=== PATIENT | male | born 1935 | race Caucasian/White ===

== ENCOUNTER 2016-11-11 19:46 | Emergency (ER) | payer MEDICARE, BC ==
[2016-11-11] MEDS ORDERED: SODIUM CHLORIDE 0.9% 1,000 ML IV ONE (20:27)
[2016-11-11 21:02] LABS: Basophils % (A) 0 %; CH 31.3; CHCM 33.5; Eosinophils % (A) 1 %; HCT 47.6 % (39.0-53.0); HDW 2.38; HGB 15.5 gm/dL (13.0-17.5); Luc # (Auto) 0.24; Luc % (Auto) 3; Lymphocytes # (A) 0.9 k/uL (1.0-4.8); Lymphocytes % (A) 10 %; MCH 30.7 pg (25.0-35.0); MCHC 32.7 g/dL (31.0-37.0); MCV 93.9 fL (80.0-100.0); Mean Platelet Volume 8.5; Monocytes # (A) 0.9 k/uL (0-1.0); Monocytes % (A) 10 %; Neutrophils # (A) 6.7 k/uL (1.3-7.7); Neutrophils % (A) 76 %; RBC 5.07 m/uL (4.30-5.90); RDW 14.3 % (11.5-15.5); WBC 8.8 k/uL (3.8-10.6); WBC (Perox) 9.16
--- NOTE | 2016-11-11 21:03 | XR ---
EXAMINATION TYPE: XR chest 2V DATE OF EXAM: 11/11/2016 8:59 PM COMPARISON: Prior chest x-ray July 30, 2016. HISTORY: Shortness of breath TECHNIQUE: Frontal and lateral views of the chest are obtained. FINDINGS: Sternal wires are present. There is chronic parenchymal change without suspicious focal air space opacity, pleural effusion, or pneumothorax seen. The cardiac silhouette size is enlarged. T he osseous structures are demineralized. Surgical clips in the visualized upper abdomen are noted. IMPRESSION: Chronic parenchymal changes and cardiomegaly without acute pulmonary process.
[2016-11-11 21:07] LABS: ALT 31 U/L (21-72); AST 25 U/L (17-59); Alkaline Phosphatase 78 U/L (38-126); Anion Gap 10 mmol/L; Blood Urea Nitrogen 16 mg/dL (9-20); Carbon Dioxide 27 mmol/L (22-30); Chloride 104 mmol/L (98-107); Glucose 123 mg/dL (74-99); INR 2.4 (<1.1); Non-African American GFR(MDRD) >60 (>60 ml/min/1.73 sqM); Partial Thromboplastin Time 31.9 sec (22.0-30.0); Potassium 4.7 mmol/L (3.5-5.1); Prothrombin Time 23.4 sec (9.0-12.0); Sodium 141 mmol/L (137-145); Total Bilirubin 0.7 mg/dL (0.2-1.3); Total Protein 7.4 g/dL (6.3-8.2)
--- NOTE | 2016-11-11 21:54 | CT ---
EXAMINATION TYPE: CT brain wo con DATE OF EXAM: 11/11/2016 9:35 PM HISTORY: CONFUSION AND WEAKNESS. CT DLP: 1010.8 mGycm. Automated Exposure Control for Dose Reduction was Utilized. TECHNIQUE: CT scan of the head is performed without contrast. COMPARISON: CT brain July 30, 2016 FINDINGS: There is no acute intracranial hemorrhage or midline shift identified. There is diffuse v entricular and sulcal prominence consistent with diffuse age-related cerebral atrophy. Degree of mayte tricular dilatation is slightly out of proportion to degree of sulcal effacement and a normal pressur e hydrocephalus is not excluded. No significant change in ventricular size is noted from prior. Focal extra-axial CSF prominence over anterior left temporal lobe on axial image 10 could reflect arachnoi d cyst or asymmetric temporal lobe degeneration, former is favored, finding is unchanged from prior s tudy. There is low-attenuation in the periventricular white matter consistent with chronic small vess el ischemic change. The globes are intact and the visualized sinuses are clear. Vascular calcifica tion of distal internal carotid and vertebral arteries bilaterally is redemonstrated. IMPRESSION: No acute intracranial hemorrhage or midline shift. There is moderate to severe diffuse age-related cerebral atrophy with possible normal pressure hydrocephalus and mild chronic small vesse l ischemic change redemonstrated . No significant change from prior study is seen.
--- NOTE | 2016-11-11 22:55 | ED ---
Fall HPI - General Chief Complaint: Fall Stated Complaint: Weakness Time Seen by Provider: 11/11/16 20:05 Source: patient Mode of arrival: EMS - Related Data Home Medications Medication Instructions Recorded Confirmed Ascorbic Acid [Vitamin C] 500 mg PO DAILY 07/30/16 11/11/16 Aspirin EC [Ecotrin Low Dose] 81 mg PO DAILY 07/30/16 11/11/16 Cholecalciferol [Vitamin D3] 4,000 unit PO DAILY 07/30/16 11/11/16 Digoxin [Lanoxin] 125 mcg PO DAILY 07/30/16 11/11/16 Lisinopril [Zestril] 10 mg PO DAILY 07/30/16 11/11/16 Metoprolol Tartrate [Lopressor] 25 mg PO BID 07/30/16 11/11/16 Multivitamins, Thera [Multivitamin] 1 tab PO DAILY 07/30/16 11/11/16 Omeprazole 40 mg PO DAILY 07/30/16 11/11/16 Simvastatin [Zocor] 20 mg PO HS 07/30/16 11/11/16 Warfarin Sodium [Coumadin] 4.5 mg PO W/SUPPER 07/30/16 11/11/16 Zinc 50 mg PO DAILY 07/30/16 11/11/16 metFORMIN HCL [Glucophage] 500 mg PO W/SUPPER 07/30/16 11/11/16 Venlafaxine HCl [Effexor XR] 75 mg PO DAILY 11/11/16 11/11/16 Allergies Allergy/AdvReac Type Severity Reaction Status Date / Time No Known Allergies Allergy Verified 11/11/16 20:58 Review of Systems ROS Statement: Those systems with pertinent positive or pertinent negative responses have been documented in the HPI. ROS Other: All systems not noted in ROS Statement are negative. Past Medical History Past Medical History: Diabetes Mellitus, Hyperlipidemia, Hypertension Additional Past Medical History / Comment(s): neurofibrosis, alzheimers History of Any Multi-Drug Resistant Organisms: None Reported Past Surgical History: Cardiac Valve Replacement, Orthopedic Surgery Additional Past Surgical History / Comment(s): hip surgery Past Psychological History: Depression Smoking Status: Never smoker Past Alcohol Use History: None Reported Past Drug Use History: None Reported General Exam Limitations: no limitations Course Vital Signs 11/11/16 11/11/16 11/11/16 19:53 21:08 23:00 Temperature 98.8 F Pulse Rate 109 H 114 H Pulse Rate [ 125 H Sitting [employer]] Pulse Rate [ 122 H Standing [employer] ] Pulse Rate [ 114 H Supine [employer]] Respiratory 20 16 Rate Blood Pressure 140/82 146/75 Blood Pressure 159/72 [Right Arm Sitting] Blood Pressure 141/88 [Right Arm Standing] Blood Pressure 143/80 [Right Arm Supine] O2 Sat by Pulse 94 L 97 Oximetry 11/11/16 11/12/16 23:55 00:07 Temperature 98.2 F Pulse Rate 120 H 108 H Pulse Rate [ Sitting [employer]] Pulse Rate [ Standing [employer] ] Pulse Rate [ Supine [employer]] Respiratory 18 Rate Blood Pressure 146/73 Blood Pressure [Right Arm Sitting] Blood Pressure [Right Arm Standing] Blood Pressure [Right Arm Supine] O2 Sat by Pulse 99 Oximetry ekg is atrial fibrillation, ventricular rate is 112 W[place] interval is, QRS duration is 84 QT/QTc is 380/434 noticed some flattening of the T-wave in lead 1 and lead 3 as well as in lead aVF no ST elevation or ST depression noticed in this EKG As well as patient's the normal normal pressure hydrocephalus is concerned none of the symptoms or new patient has cc try it if symptoms on for a year or longer had a long discussion with the patient and the and we'll make a referral to Dr. Lindsey please see neurologist cotton program technician today and they agree with the Medical Decision Making - Lab Data Result diagrams: 11/11/16 20:10 11/11/16 20:10 Lab Results 11/11/16 11/11/16 11/11/16 Range/Units 20:10 20:10 20:10 WBC 8.8 (3.8-10.6) k/uL RBC 5.07 (4.30-5.90) m/uL Hgb 15.5 (13.0-17.5) gm/dL Hct 47.6 (39.0-53.0) % MCV 93.9 (80.0-100.0) fL MCH 30.7 (25.0-35.0) pg MCHC 32.7 (31.0-37.0) g/dL RDW 14.3 (11.5-15.5) % Plt Count 163 (150-450) k/uL Neutrophils % 76 % Lymphocytes % 10 % Monocytes % 10 % Eosinophils % 1 % Basophils % 0 % Neutrophils # 6.7 (1.3-7.7) k/uL Lymphocytes # 0.9 L (1.0-4.8) k/uL Monocytes # 0.9 (0-1.0) k/uL Eosinophils # 0.0 (0-0.7) k/uL Basophils # 0.0 (0-0.2) k/uL PT 23.4 H (9.0-12.0) sec INR 2.4 (<1.1) APTT 31.9 H (22.0-30.0) sec Sodium 141 (137-145) mmol/L Potassium 4.7 (3.5-5.1) mmol/L Chloride 104 (98-107) mmol/L Carbon Dioxide 27 (22-30) mmol/L Anion Gap 10 mmol/L BUN 16 (9-20) mg/dL Creatinine 1.00 (0.66-1.25) mg/dL Est GFR (MDRD) Af Amer >60 (>60 ml/min/1.73 sqM) Est GFR (MDRD) Non-Af >60 (>60 ml/min/1.73 sqM) Glucose 123 H (74-99) mg/dL Calcium 9.0 (8.4-10.2) mg/dL Total Bilirubin 0.7 (0.2-1.3) mg/dL AST 25 (17-59) U/L ALT 31 (21-72) U/L Alkaline Phosphatase 78 (38-126) U/L Total Protein 7.4 (6.3-8.2) g/dL Albumin 3.8 (3.5-5.0) g/dL Urine Color Urine Appearance (Clear) Urine pH (5.0-8.0) Ur Specific [place] (1.001-1.035) Urine Protein (Negative) Urine Glucose (UA) (Negative) Urine Ketones (Negative) Urine Blood (Negative) Urine Nitrate (Negative) Urine Bilirubin (Negative) Urine Urobilinogen (<2.0) mg/dL Ur Leukocyte Esterase (Negative) Urine RBC (0-5) /hpf Urine WBC (0-5) /hpf Ur Squamous Epith Cells (0-4) /hpf Urine Bacteria (None) /hpf Urine Mucus (None) /hpf 11/11/16 Range/Units 23:05 WBC (3.8-10.6) k/uL RBC (4.30-5.90) m/uL Hgb (13.0-17.5) gm/dL Hct (39.0-53.0) % MCV (80.0-100.0) fL MCH (25.0-35.0) pg MCHC (31.0-37.0) g/dL RDW (11.5-15.5) % Plt Count (150-450) k/uL Neutrophils % % Lymphocytes % % Monocytes % % Eosinophils % % Basophils % % Neutrophils # (1.3-7.7) k/uL Lymphocytes # (1.0-4.8) k/uL Monocytes # (0-1.0) k/uL Eosinophils # (0-0.7) k/uL Basophils # (0-0.2) k/uL PT (9.0-12.0) sec INR (<1.1) APTT (22.0-30.0) sec Sodium (137-145) mmol/L Potassium (3.5-5.1) mmol/L Chloride (98-107) mmol/L Carbon Dioxide (22-30) mmol/L Anion Gap mmol/L BUN (9-20) mg/dL Creatinine (0.66-1.25) mg/dL Est GFR (MDRD) Af Amer (>60 ml/min/1.73 sqM) Est GFR (MDRD) Non-Af (>60 ml/min/1.73 sqM) Glucose (74-99) mg/dL Calcium (8.4-10.2) mg/dL Total Bilirubin (0.2-1.3) mg/dL AST (17-59) U/L ALT (21-72) U/L Alkaline Phosphatase (38-126) U/L Total Protein (6.3-8.2) g/dL Albumin (3.5-5.0) g/dL Urine Color Yellow Urine Appearance Clear (Clear) Urine pH 6.0 (5.0-8.0) Ur Specific [place] 1.022 (1.001-1.035) Urine Protein 1+ H (Negative) Urine Glucose (UA) Negative (Negative) Urine Ketones Negative (Negative) Urine Blood Negative (Negative) Urine Nitrate Negative (Negative) Urine Bilirubin Negative (Negative) Urine Urobilinogen <2.0 (<2.0) mg/dL Ur Leukocyte Esterase Negative (Negative) Urine RBC 3 (0-5) /hpf Urine WBC 2 (0-5) /hpf Ur Squamous Epith Cells <1 (0-4) /hpf Urine Bacteria Occasional H (None) /hpf Urine Mucus Occasional H (None) /hpf Disposition Clinical Impression: Fall, History of atrial fibrillation, Normal pressure hydrocephalus Disposition: HOME SELF-CARE Condition: Fair Instructions: Fall Prevention for Older Adults (ED)
[2016-11-11 23:23] LABS: Appearance,Urine Clear (Clear); Bacteria,Urine Occasional /hpf; Bilirubin,Urine Negative (Negative); Glucose,Urine (UA) Negative (Negative); Ketones,Urine Negative (Negative); Leukocyte Esterase,Urine Negative (Negative); Mucus,Urine Occasional /hpf; Nitrite,Urine Negative (Negative); Particle Count 3838; Protein,Urine 1+ (Negative); RBC,Urine 3 /hpf (0-5); Specific Gravity,Urine 1.022 (1.001-1.035); Squamous Epithelial Cell,Urine <1 /hpf (0-4); UA Billing (MACRO vs. MICRO) MICRO; Urobilinogen,Urine <2.0 mg/dL (<2.0); WBC,Urine 2 /hpf (0-5)
[2016-11-11 23:57] VITALS: BP 146/73; RESP 18; TEMP 98.2
[2016-11-12 00:07] VITALS: PULSE 108
== END 2016-11-12 00:27 | disposition home or self-care (01) ==
LOC: EC 19:46
DX: G91.2 (Idiopathic) normal pressure hydrocephalus (principal); I48.91 Unspecified atrial fibrillation; I10 Essential (primary) hypertension; E78.5 Hyperlipidemia, unspecified; E11.9 Type 2 diabetes mellitus without complications; F32.9 Major depressive disorder, single episode, unspecified; G30.9 Alzheimer's disease, unspecified; Z79.01 Long term (current) use of anticoagulants; Z79.82 Long term (current) use of aspirin; Z79.84 Long term (current) use of oral hypoglycemic drugs; Z79.899 Other long term (current) drug therapy; Z95.2 Presence of prosthetic heart valve
CPT/HCPCS: 36415; 70450; 71020; 80053; 81001; 85025; 85610; 85730; 93005; 96360; 96361; 99285

== ENCOUNTER 2016-11-12 21:42 | Inpatient (IN) | payer MEDICARE, BC ==
--- NOTE | 2016-11-12 21:50 | ED ---
General Adult HPI - General Chief complaint: Weakness Stated complaint: Weakness/Fall Time Seen by Provider: 11/12/16 21:47 Source: patient, EMS, RN notes reviewed, old records reviewed Mode of arrival: EMS Limitations: altered mental status - History of Present Illness Initial comments: This is an 79-year-old male here for evaluation. Patient's pertinent by his for evaluation of weakness and chronic falls. Continued falls. Patient was seen in here for evaluation of similar symptoms last night. Patient has history of diabetes hypertension or cholesterol. Patient has had multiple falls , even since discharge last night. He himself denies any complaints no chest reassurance of breath. No significant abdominal pain. Patient denies any diarrhea recent her nausea vomiting. No chest pain again. Patient has been taking medications as prescribed. Does state he feels little dehydrated. - Related Data Home Medications Medication Instructions Recorded Confirmed Ascorbic Acid [Vitamin C] 500 mg PO DAILY 07/30/16 11/12/16 Aspirin EC [Ecotrin Low Dose] 81 mg PO DAILY 07/30/16 11/12/16 Cholecalciferol [Vitamin D3] 4,000 unit PO DAILY 07/30/16 11/12/16 Digoxin [Lanoxin] 125 mcg PO DAILY 07/30/16 11/12/16 Lisinopril [Zestril] 10 mg PO DAILY 07/30/16 11/12/16 Metoprolol Tartrate [Lopressor] 25 mg PO BID 07/30/16 11/12/16 Multivitamins, Thera [Multivitamin] 1 tab PO DAILY 07/30/16 11/12/16 Omeprazole 40 mg PO DAILY 07/30/16 11/12/16 Simvastatin [Zocor] 20 mg PO HS 07/30/16 11/12/16 Warfarin Sodium [Coumadin] 4.5 mg PO W/SUPPER 07/30/16 11/12/16 Zinc 50 mg PO DAILY 07/30/16 11/12/16 metFORMIN HCL [Glucophage] 500 mg PO W/SUPPER 07/30/16 11/12/16 Venlafaxine HCl [Effexor XR] 75 mg PO DAILY 11/11/16 11/12/16 Allergies Allergy/AdvReac Type Severity Reaction Status Date / Time No Known Allergies Allergy Verified 11/12/16 22:14 Review of Systems ROS Statement: Those systems with pertinent positive or pertinent negative responses have been documented in the HPI. ROS Other: All systems not noted in ROS Statement are negative. Past Medical History Past Medical History: Diabetes Mellitus, Hyperlipidemia, Hypertension Additional Past Medical History / Comment(s): neurofibrosis, alzheimers History of Any Multi-Drug Resistant Organisms: None Reported Past Surgical History: Cardiac Valve Replacement, Orthopedic Surgery Additional Past Surgical History / Comment(s): hip surgery Past Psychological History: Depression Smoking Status: Never smoker Past Alcohol Use History: None Reported Past Drug Use History: None Reported General Exam Limitations: altered mental status General appearance: alert, in no apparent distress Head exam: Present: atraumatic, normocephalic, normal inspection Eye exam: Present: normal appearance, PERRL, EOMI. Absent: scleral icterus, conjunctival injection, periorbital swelling ENT exam: Present: normal exam, mucous membranes moist Neck exam: Present: normal inspection. Absent: tenderness, meningismus, lymphadenopathy Respiratory exam: Present: normal lung sounds bilaterally. Absent: respiratory distress, wheezes, rales, rhonchi, stridor Cardiovascular Exam: Present: tachycardia, irregular rhythm, normal heart sounds. Absent: systolic murmur, diastolic murmur, rubs, gallop, clicks GI/Abdominal exam: Present: soft, normal bowel sounds. Absent: distended, tenderness, guarding, rebound, rigid Extremities exam: Present: normal inspection, full ROM, normal capillary refill. Absent: tenderness, pedal edema, joint swelling, calf tenderness Back exam: Present: normal inspection Neurological exam: Present: alert, oriented X3, CN II-XII intact Psychiatric exam: Present: normal affect, normal mood Skin exam: Present: warm, dry, intact, normal color. Absent: rash Course Vital Signs 11/12/16 11/12/16 21:47 22:35 Temperature 99.2 F Pulse Rate 122 H 126 H Respiratory 18 18 Rate Blood Pressure 123/87 135/80 O2 Sat by Pulse 93 L 93 L Oximetry - Reevaluation(s) Reevaluation #1: 11/12/16 22:47 Patient's much improved at this time. Heart is improving, still feeling very weak EKG Findings - EKG Comments: EKG Findings:: EKG shows A. fib with RVR rate 127, QRS 80, QTC 456 Medical Decision Making - Medical Decision Making 81 male ER for evaluation of weakness, severe weakness and shortness of breath, patient remains in A. fib with RVR, patient was in our hospital [place] for similar symptoms. Patient having weakness and continued falls. Patient denies chest pain. Patient will be admitted for evaluation by cardiology - Lab Data Result diagrams: 11/12/16 21:54 11/12/16 21:54 Lab Results 11/12/16 11/12/16 11/12/16 Range/Units 21:54 21:54 21:54 WBC 8.6 (3.8-10.6) k/uL RBC 5.11 (4.30-5.90) m/uL Hgb 15.7 (13.0-17.5) gm/dL Hct 48.1 (39.0-53.0) % MCV 94.1 (80.0-100.0) fL MCH 30.7 (25.0-35.0) pg MCHC 32.7 (31.0-37.0) g/dL RDW 14.5 (11.5-15.5) % Plt Count 164 (150-450) k/uL Neutrophils % 77 % Lymphocytes % 9 % Monocytes % 10 % Eosinophils % 0 % Basophils % 1 % Neutrophils # 6.6 (1.3-7.7) k/uL Lymphocytes # 0.8 L (1.0-4.8) k/uL Monocytes # 0.9 (0-1.0) k/uL Eosinophils # 0.0 (0-0.7) k/uL Basophils # 0.1 (0-0.2) k/uL PT (9.0-12.0) sec INR (<1.1) APTT (22.0-30.0) sec Sodium 140 (137-145) mmol/L Potassium 4.3 (3.5-5.1) mmol/L Chloride 104 (98-107) mmol/L Carbon Dioxide 24 (22-30) mmol/L Anion Gap 12 mmol/L BUN 18 (9-20) mg/dL Creatinine 1.00 (0.66-1.25) mg/dL Est GFR (MDRD) Af Amer >60 (>60 ml/min/1.73 sqM) Est GFR (MDRD) Non-Af >60 (>60 ml/min/1.73 sqM) Glucose 184 H (74-99) mg/dL Plasma Lactic Acid Derrek (0.7-2.0) mmol/L Calcium 8.8 (8.4-10.2) mg/dL Phosphorus 2.7 (2.5-4.5) mg/dL Magnesium 1.8 (1.6-2.3) mg/dL Total Bilirubin 0.8 (0.2-1.3) mg/dL AST 24 (17-59) U/L ALT 36 (21-72) U/L Alkaline Phosphatase 72 (38-126) U/L Ammonia (<30) umol/L Total Creatine Kinase 47 L (55-170) U/L Total Protein 7.2 (6.3-8.2) g/dL Albumin 3.8 (3.5-5.0) g/dL 11/12/16 11/12/16 Range/Units 21:54 22:10 WBC (3.8-10.6) k/uL RBC (4.30-5.90) m/uL Hgb (13.0-17.5) gm/dL Hct (39.0-53.0) % MCV (80.0-100.0) fL MCH (25.0-35.0) pg MCHC (31.0-37.0) g/dL RDW (11.5-15.5) % Plt Count (150-450) k/uL Neutrophils % % Lymphocytes % % Monocytes % % Eosinophils % % Basophils % % Neutrophils # (1.3-7.7) k/uL Lymphocytes # (1.0-4.8) k/uL Monocytes # (0-1.0) k/uL Eosinophils # (0-0.7) k/uL Basophils # (0-0.2) k/uL PT 15.4 H (9.0-12.0) sec INR 1.6 (<1.1) APTT 28.8 (22.0-30.0) sec Sodium (137-145) mmol/L Potassium (3.5-5.1) mmol/L Chloride (98-107) mmol/L Carbon Dioxide (22-30) mmol/L Anion Gap mmol/L BUN (9-20) mg/dL Creatinine (0.66-1.25) mg/dL Est GFR (MDRD) Af Amer (>60 ml/min/1.73 sqM) Est GFR (MDRD) Non-Af (>60 ml/min/1.73 sqM) Glucose (74-99) mg/dL Plasma Lactic Acid Derrek 1.2 (0.7-2.0) mmol/L Calcium (8.4-10.2) mg/dL Phosphorus (2.5-4.5) mg/dL Magnesium (1.6-2.3) mg/dL Total Bilirubin (0.2-1.3) mg/dL AST (17-59) U/L ALT (21-72) U/L Alkaline Phosphatase (38-126) U/L Ammonia 12 (<30) umol/L Total Creatine Kinase (55-170) U/L Total Protein (6.3-8.2) g/dL Albumin (3.5-5.0) g/dL - Radiology Data Radiology results: report reviewed (CT brain and chest x-ray are negative for acute disease), image reviewed Critical Care Time Critical Care Time: Yes Total Critical Care Time: 31 Disposition Clinical Impression: Atrial fibrillation with RVR, Weakness Disposition: ADMITTED IP TO THIS HOSP Condition: Fair Referrals: Kingston Cardona MD [Primary Care Provider] - 1-2 days
[2016-11-12] MEDS ORDERED: SODIUM CHLORIDE 0.9% 1,000 ML IV STA (21:51)
[2016-11-12] MEDS ORDERED: DILTIAZEM 5 MG/ML 5 ML VIAL IVP STA (22:11)
[2016-11-12] MEDS ORDERED: DILTIAZEM 125 MG in SODIUM CHLORIDE 0.9% 100 ML IV ONE (22:11)
[2016-11-12 22:14] LABS: Basophils # (A) 0.1 k/uL (0-0.2); Basophils % (A) 1 %; CH 31.8; Eosinophils % (A) 0 %; HCT 48.1 % (39.0-53.0); HDW 2.43; HGB 15.7 gm/dL (13.0-17.5); Luc # (Auto) 0.26; Luc % (Auto) 3; Lymphocytes # (A) 0.8 k/uL (1.0-4.8); Lymphocytes % (A) 9 %; MCH 30.7 pg (25.0-35.0); MCHC 32.7 g/dL (31.0-37.0); MCV 94.1 fL (80.0-100.0); Mean Platelet Volume 9.6; Monocytes # (A) 0.9 k/uL (0-1.0); Monocytes % (A) 10 %; Neutrophils # (A) 6.6 k/uL (1.3-7.7); Neutrophils % (A) 77 %; RBC 5.11 m/uL (4.30-5.90); RDW 14.5 % (11.5-15.5); WBC 8.6 k/uL (3.8-10.6); WBC (Perox) 8.38
[2016-11-12 22:24] LABS: INR 1.6 (<1.1); Partial Thromboplastin Time 28.8 sec (22.0-30.0); Prothrombin Time 15.4 sec (9.0-12.0)
[2016-11-12 22:33] LABS: ALT 36 U/L (21-72); AST 24 U/L (17-59); Alkaline Phosphatase 72 U/L (38-126); Anion Gap 12 mmol/L; Blood Urea Nitrogen 18 mg/dL (9-20); Calcium 8.8 mg/dL (8.4-10.2); Carbon Dioxide 24 mmol/L (22-30); Chloride 104 mmol/L (98-107); Creatine Kinase 47 U/L (55-170); Glucose 184 mg/dL (74-99); Magnesium 1.8 mg/dL (1.6-2.3); Non-African American GFR(MDRD) >60 (>60 ml/min/1.73 sqM); Phosphorous 2.7 mg/dL (2.5-4.5); Potassium 4.3 mmol/L (3.5-5.1); Sodium 140 mmol/L (137-145); Total Bilirubin 0.8 mg/dL (0.2-1.3); Total Protein 7.2 g/dL (6.3-8.2)
--- NOTE | 2016-11-12 22:37 | CT ---
EXAM: CT Head Without Intravenous Contrast. CLINICAL HISTORY: Reason: weakness TECHNIQUE: Axial computed tomography images of the head/brain without intravenous contrast. CTDI is 57.40 mGy and DLP is 1041.20 mGy-cm COMPARISON: 11/11/20162126 FINDINGS: Brain: No acute intracranial hemorrhage, loss of espinal-white differentiation, or significant mass effect. Sulcal prominence commensurate with the patient's age. Areas of hypoattenuation in the periventricular white matter bilaterally are compatible with the sequela of chronic small vessel ischemic disease. Ventricles: Stable ventriculomegaly with asymmetric enlargement of the posterior horn of the right lateral ventricle. Bones/joints: Unremarkable. No acute fracture. Soft tissues: Unremarkable. Vasculature: Atherosclerosis of the intracranial internal carotid and vertebral arteries. Sinuses: Mucosal thickening is present in the paranasal sinuses. Mastoid air cells: Unremarkable. IMPRESSION: No acute intracranial abnormality or significant interval change since prior examination.
[2016-11-12] MEDS ORDERED: ASPIRIN 81 MG CHEW PO STA (22:43)
[2016-11-12] MEDS ORDERED: NITROGLYCERIN SL TABS 0.4 MG TAB SUBLINGUAL PRN (22:43)
[2016-11-12 22:44] LABS: Creatine Kinase MB 0.4 ng/mL (0.0-2.4); Troponin I <0.012 ng/mL (0.000-0.034)
--- NOTE | 2016-11-12 22:47 | XR ---
EXAM: XR Chest, 1 View. CLINICAL HISTORY: Reason: Weakness TECHNIQUE: Frontal view of the chest. COMPARISON: 11/11/2016 2100 FINDINGS: Lungs: Hypoventilatory examination. Bibasilar opacities are favored to represent atelectasis. No focal consolidation. Persistent bilateral interstitial prominence is nonspecific and likely chronic. Pleural space: Unremarkable. No pneumothorax. Heart: Stable postoperative mediastinum and cardiomediastinal silhouette. Mediastinum: See above. Bones/joints: No acute osseous abnormality. IMPRESSION: No acute cardiopulmonary process or significant interval change since prior exam.
[2016-11-13 01:05] VITALS: BMI 31.2
[2016-11-13 04:39] LABS: Cholesterol 68 mg/dL (<200); HDL Cholesterol 27 mg/dL (40-60); Triglycerides 66 mg/dL (<150)
[2016-11-13 04:54] LABS: Creatine Kinase 127 U/L (55-170)
[2016-11-13 05:06] LABS: Troponin I <0.012 ng/mL (0.000-0.034)
[2016-11-13 06:01] LABS: Glucose,Whole Blood 113 mg/dL (75-99)
[2016-11-13] MEDS ORDERED: ASPIRIN 325 MG TAB PO SCH (09:00)
[2016-11-13] MEDS: VENLAFAXINE HCL ER 75 MG CAP PO SCH (10:09)
[2016-11-13] MEDS: DIGOXIN 125 MCG TAB PO SCH (10:09)
[2016-11-13] MEDS: LISINOPRIL 10 MG TAB PO SCH (10:09)
[2016-11-13] MEDS: ASCORBIC ACID 500 MG TAB PO SCH (10:09)
[2016-11-13] MEDS: ZINC SULFATE 220 MG CAP PO SCH (10:09)
[2016-11-13] MEDS: MULTIVITAMINS, THERA 1 EACH TAB PO SCH (10:09)
[2016-11-13] MEDS: METOPROLOL TARTRATE 25 MG TAB PO SCH ×2 (10:09→20:38)
[2016-11-13] MEDS: PANTOPRAZOLE 40 MG TABLET PO SCH (10:09)
[2016-11-13] MEDS: ASPIRIN 81 MG CHEW PO SCH (10:10)
[2016-11-13] MEDS: CHOLECALCIFEROL 1,000 UNIT TAB PO SCH (10:10)
--- NOTE | 2016-11-13 10:23 | ECHOF ---
Referral Reason:a.fib MEASUREMENTS -------- HEIGHT: 182.9 cm WEIGHT: 113.4 kg BP: 120/75 RVIDd: 2.9 cm (< 3.3) IVSd: 1.6 cm (0.6 - 1.1) LVIDd: 4.6 cm (3.9 - 5.3) LVPWd: 1.1 cm (0.6 - 1.1) IVSs: 1.9 cm LVIDs: 3.6 cm LVPWs: 1.4 cm LA Diam: 5.0 cm (2.7 - 3.8) LAESV Index (A-L): 52.07 ml/m Ao Diam: 3.3 cm (2.0 - 3.7) AV Cusp: 1.8 cm (1.5 - 2.6) LA Diam: 5.1 cm (2.7 - 3.8) MV EXCURSION: 21.757 mm (> 18.000) MV EF SLOPE: 125 mm/s (70 - 150) EPSS: 0.3 cm RAP: 5.00 mmHg RVSP: 35.26 mmHg FINDINGS -------- Undetermined rhythm. This was a technically adequate study. There is mild concentric left ventricular hypertrophy. Overall left ventricular systolic function is low-normal with, an EF between 50 - 55 %. The right ventricle is normal in size. LA is severely dilated >40 ml/m2 The right atrium is moderately enlarged. There is mild aortic valve sclerosis. There is no evidence of aortic regurgitation. Mild mitral annular calcification present. Mild mitral regurgitation is present. Mild tricuspid regurgitation present. There is mild pulmonary hypertension. The right ventricular systolic pressure, as measured by Doppler, is 35.26mmHg. There is no pulmonic regurgitation present. The aortic root size is normal. There is no pericardial effusion. CONCLUSIONS -------- 1. There is mild concentric left ventricular hypertrophy. 2. The right ventricular systolic pressure, as measured by Doppler, is 35.26mmHg. 3. The aortic root size is normal. 4. Overall left ventricular systolic function is low-normal with, an EF between 50 - 55 %. 5. LA is severely dilated >40 ml/m2 6. The right atrium is moderately enlarged. 7. There is mild aortic valve sclerosis. 8. Mild mitral annular calcification present. 9. Mild mitral regurgitation is present. 10. Mild tricuspid regurgitation present. 11. There is mild pulmonary hypertension. MUSHROOM PICKER: Mimi Gimenez RDCS
[2016-11-13 11:01] VITALS: RESP 20
[2016-11-13 11:29] LABS: Creatine Kinase 173 U/L (55-170)
[2016-11-13 11:42] LABS: Creatine Kinase MB 1.5 ng/mL (0.0-2.4); Troponin I <0.012 ng/mL (0.000-0.034)
[2016-11-13 11:53] LABS: Glucose,Whole Blood 140 mg/dL (75-99)
[2016-11-13 16:59] LABS: Glucose,Whole Blood 113 mg/dL (75-99)
[2016-11-13] MEDS: metFORMIN 500 MG TAB PO SCH (20:37)
[2016-11-13] MEDS: WARFARIN 1.5 MG TAB PO SCH (20:37)
[2016-11-13] MEDS: ATORVASTATIN 10 MG TAB PO SCH (20:37)
[2016-11-13 21:23] LABS: Glucose,Whole Blood 118 mg/dL (75-99)
--- NOTE | 2016-11-13 23:22 | HP ---
DATE OF ADMISSION: CHIEF COMPLAINT: Weakness. HISTORY OF PRESENT ILLNESS: This 81-year-old gentleman was brought into the emergency room because of a fall at home. He complained of weakness. He had similar symptoms the day prior to this admission and was seen in the emergency room. The patient has had symptoms of a cold for the past 3 to 4 few days. No fever or chills. He has had no nausea, vomiting, abdominal pain, diarrhea. Fluid intake fair. The patient denies any other symptoms of angina, palpitation or shortness of breath. Past medical history is significant for: 1. Chronic atrial fibrillation. 2. Aortic valve replacement. 3. History of diabetes mellitus. 4. Neurofibromatosis. 5. Mild dementia. Past surgical history is significant for: 1. Aortic valve replacement. 2. Previous hip surgery. PERSONAL HISTORY: Never a smoker. No alcohol. SOCIAL HISTORY: Patient is and lives with his spouse. FAMILY MEDICAL HISTORY: Noncontributory. Medications include: 1. Metformin 500 mg daily. 2. Zinc 50 mg daily. 3. Coumadin 4.5 mg daily. 4. Effexor XR 75 mg daily. 5. Zocor 20 mg daily. 6. Omeprazole 40 mg daily. 7. Multivitamin daily. 8. Metoprolol tartrate 25 mg b.i.d. 9. Zestril 10 mg daily. 10. Digoxin 0.125 mg daily. 11. Aspirin 81 mg daily. 12. Vitamin D3 daily. 13. Vitamin C 500 mg daily. REVIEW OF SYSTEMS: NEURO: Denies any headaches, dizziness. No double vision, blurred vision. No symptoms of TIA, syncope, seizures. PSYCH: No anxiety, depression. CARDIAC: Denies chest pain, angina, palpitations. RESPIRATORY: Denies shortness of breath, cough, hemoptysis. GI: No nausea, vomiting, abdominal pain, diarrhea. : No symptoms of dysuria, hematuria, urgency, frequency. EXTREMITIES: Denies pain, edema. CONSTITUTIONAL: No fever, chills. SKIN: No rashes. PHYSICAL EXAMINATION: Pleasant elderly gentleman, at present in no distress. VITAL SIGNS: Heart rate was irregularly irregular and rapid. Temperature 97.3, pulse 99, respirations 20, blood pressure 126/93, pulse ox 93% on room air. HEENT: Normocephalic. Decreased range of motion. Pupils reactive. NECK: Decreased range of motion. No JVD, carotid bruits or thyromegaly. CHEST EXAMINATION: Clear to auscultation with occasional rhonchi, left base, which clears with cough. CARDIAC: Distant heart sounds. S1, S2 with no gallops. Systolic murmur 2/6, left sternal border. Rhythm is irregularly irregular. ABDOMEN: Soft. Bowel sounds present. Extremities reveal no edema. Neurologically awake, alert, oriented to place and person, with well-coordinated movements. Moves both upper and lower extremities fairly well. LABORATORY ASSESSMENT: Cardiac enzymes which are negative. CBC was normal. INR 1.6. Electrolytes normal. White count is normal. Hemoglobin is 15.7. Hepatic function normal. Chest x-ray is unremarkable. ASSESSMENT: 1. Atrial fibrillation with rapid ventricular rate. 2. History of chronic atrial fibrillation. 3. Upper respiratory tract infection, mostly viral. 4. Neurofibromatosis. PLAN: The patient is stable. Continue present medical regimen. Condition discussed with the patient. Prognosis guarded. Patient's condition discussed with his spouse. Patient's condition is guarded.
[2016-11-14] MEDS: PANTOPRAZOLE 40 MG TABLET PO SCH (06:21)
[2016-11-14 06:46] LABS: Glucose,Whole Blood 107 mg/dL (75-99)
[2016-11-14] MEDS: LISINOPRIL 10 MG TAB PO SCH (08:41)
[2016-11-14] MEDS: DIGOXIN 125 MCG TAB PO SCH (08:41)
[2016-11-14] MEDS: METOPROLOL TARTRATE 25 MG TAB PO SCH ×2 (08:41→20:41)
[2016-11-14] MEDS: ZINC SULFATE 220 MG CAP PO SCH (08:41)
[2016-11-14] MEDS: ASPIRIN 81 MG CHEW PO SCH (08:41)
[2016-11-14] MEDS: ASCORBIC ACID 500 MG TAB PO SCH (08:41)
[2016-11-14] MEDS: VENLAFAXINE HCL ER 75 MG CAP PO SCH (08:41)
[2016-11-14] MEDS: CHOLECALCIFEROL 1,000 UNIT TAB PO SCH (08:41)
[2016-11-14 12:06] LABS: Glucose,Whole Blood 143 mg/dL (75-99)
[2016-11-14] MEDS: MULTIVITAMINS, THERA 1 EACH TAB PO SCH (12:17)
[2016-11-14 16:44] LABS: Glucose,Whole Blood 118 mg/dL (75-99)
[2016-11-14] MEDS: metFORMIN 500 MG TAB PO SCH (17:20)
[2016-11-14] MEDS: WARFARIN 1.5 MG TAB PO SCH (17:20)
[2016-11-14] MEDS: ATORVASTATIN 10 MG TAB PO SCH (20:41)
[2016-11-14 21:46] LABS: Glucose,Whole Blood 115 mg/dL (75-99)
--- NOTE | 2016-11-14 22:43 | PN ---
CHIEF COMPLAINT: Re-evaluation. HISTORY OF PRESENT ILLNESS: An 81-year-old gentleman, was admitted to the hospital with atrial fibrillation, rapid ventricular rate. The patient also has had an upper respiratory viral infection. No fever or chills. Does have a history of mild dementia and has fallen a number of times at home. The is not able to take care of him, requesting rehabilitation. The patient also has a history of diabetes mellitus and a history of chronic atrial fibrillation. Patient's heart rate is adequately controlled at present. REVIEW OF SYSTEMS: NEURO: Denies any headaches, dizziness. PSYCH: No anxiety. CARDIAC: No chest pain, angina, palpitations. RESPIRATORY: Denies shortness of breath. Minimal cough, no hemoptysis. GI: No nausea, vomiting, abdominal pain, diarrhea. : No symptoms of dysuria, hematuria. EXTREMITIES: No edema. No pain. CONSTITUTIONAL: No fever or chills. PHYSICAL EXAMINATION: Pleasant gentleman, in no distress. VITAL SIGNS: Temperature 99.1, pulse rate 95, respirations 20, blood pressure 138/85, pulse ox of 96% on room air. HEENT: Normocephalic. NECK: Supple. No JVD. CHEST: Clear to auscultation. CARDIAC: Normal S1, S2 with no gallops. Systolic murmur 2/6 at the left sternal border. Irregular rhythm. ABDOMEN: Soft. Bowel sounds present. EXTREMITIES: No edema. NEUROLOGICAL: Awake, alert, oriented to place and person. Moves both upper and lower extremities adequately. LABORATORY ASSESSMENT: Accu-Cheks which are in normal range. ASSESSMENT: 1. Atrial fibrillation with rapid ventricular rate, resolved. 2. Chronic atrial fibrillation. 3. Mild dementia. 4. Neurofibromatosis. PLAN: The patient is stable. Continue present medical regimen. OT, PT as needed. The patient's condition will be re-evaluated tomorrow. If condition is stable enough to ambulate independently, patient will be discharged home; otherwise may require rehabilitation. Prognosis is guarded.
[2016-11-15 05:59] LABS: Glucose,Whole Blood 112 mg/dL (75-99)
[2016-11-15] MEDS: PANTOPRAZOLE 40 MG TABLET PO SCH (06:25)
[2016-11-15] MEDS: CHOLECALCIFEROL 1,000 UNIT TAB PO SCH (08:05)
[2016-11-15] MEDS: ASCORBIC ACID 500 MG TAB PO SCH (08:05)
[2016-11-15] MEDS: ASPIRIN 81 MG CHEW PO SCH (08:05)
[2016-11-15] MEDS: VENLAFAXINE HCL ER 75 MG CAP PO SCH (08:06)
[2016-11-15] MEDS: DIGOXIN 125 MCG TAB PO SCH (08:06)
[2016-11-15] MEDS: LISINOPRIL 10 MG TAB PO SCH (08:06)
[2016-11-15] MEDS: ZINC SULFATE 220 MG CAP PO SCH (08:06)
[2016-11-15] MEDS: MULTIVITAMINS, THERA 1 EACH TAB PO SCH (08:06)
--- NOTE | 2016-11-15 08:07 | P.DS ---
Providers Date of admission: 11/12/16 22:46 Attending physician: Kingston Cardona Primary care physician: Kingston Cardona Hospital Course: History present illness and hospital course. This 81-year-old gentleman was admitted to the hospital with weakness. Had a fall at home. He does have history of multiple falls. The patient does have underlying dementia mild in nature. He does have depression which is improved with medical therapy. He does have neurofibromatosis. The patient in the emergency room was noted to be in atrial fibrillation rapid ventricular rate. The patient does have a history of chronic atrial fibrillation. He does take his medications under the supervision of his . The patient's spouse is not able to care for him at present due to his weakness. Patient had come down with a head cold. There was no evidence of any significant respiratory infection. Suspected to be a viral infection. Patient's been doing better his heart rate is improved. The patient had pulled IV out. He is on increased beta farhana maintaining adequate heart rate. The patient does have generalized weakness and debility. He is recommended short-term subacute rehab. Final diagnosis to include: 1. Atrial fibrillation rapid ventricular rate 2. Chronic persistent atrial fibrillation 3. Anticoagulative status 4. Mild dementia 5. Diabetes mellitus type 2 6. Neurofibromatosis 7. Depression controlled with medical therapy Patient Condition at Discharge: Fair Plan - Discharge Summary Discharge Medication List Ascorbic Acid [Vitamin C] 500 mg PO DAILY 07/30/16 [History] Aspirin EC [Ecotrin Low Dose] 81 mg PO DAILY 07/30/16 [History] Cholecalciferol [Vitamin D3] 4,000 unit PO DAILY 07/30/16 [History] Digoxin [Lanoxin] 125 mcg PO DAILY 07/30/16 [History] Lisinopril [Zestril] 10 mg PO DAILY 07/30/16 [History] Multivitamins, Thera [Multivitamin (formulary)] 1 tab PO DAILY 07/30/16 [History ] Omeprazole 40 mg PO DAILY 07/30/16 [History] Simvastatin [Zocor] 20 mg PO HS 07/30/16 [History] Warfarin Sodium [Coumadin] 4.5 mg PO W/SUPPER 07/30/16 [History] Zinc 50 mg PO DAILY 07/30/16 [History] metFORMIN HCL [Glucophage] 500 mg PO W/SUPPER 07/30/16 [History] Venlafaxine HCl [Effexor XR] 75 mg PO DAILY 11/11/16 [History] Metoprolol Tartrate [Lopressor] 50 mg PO BID tab 11/15/16 [Rx] Follow up Appointment(s)/Referral(s): Kingston Cardona MD [Primary Care Provider] - 1-2 days Discharge Disposition: TRANSFER TO SNF/ECF
[2016-11-15 08:26] LABS: CH 31.7; CHCM 33.6; HCT 52.3 % (39.0-53.0); HDW 2.48; HGB 16.8 gm/dL (13.0-17.5); MCH 30.5 pg (25.0-35.0); MCHC 32.2 g/dL (31.0-37.0); MCV 94.9 fL (80.0-100.0); Mean Platelet Volume 9.6; RBC 5.52 m/uL (4.30-5.90); RDW 14.2 % (11.5-15.5); WBC 6.1 k/uL (3.8-10.6)
[2016-11-15 08:36] LABS: INR 1.9 (<1.1)
[2016-11-15 08:46] LABS: Anion Gap 13 mmol/L; Blood Urea Nitrogen 18 mg/dL (9-20); Carbon Dioxide 28 mmol/L (22-30); Chloride 99 mmol/L (98-107); Glucose 126 mg/dL (74-99); Non-African American GFR(MDRD) >60 (>60 ml/min/1.73 sqM); Potassium 4.5 mmol/L (3.5-5.1); Sodium 140 mmol/L (137-145)
[2016-11-15] MEDS ORDERED: METOPROLOL TARTRATE 50 MG TAB PO SCH (09:00)
--- NOTE | 2016-11-15 09:05 | XR ---
EXAMINATION TYPE: XR chest 2V DATE OF EXAM: 11/15/2016 7:04 AM COMPARISON: Prior chest x-ray 12 November 2016 HISTORY: Cough and confusion TECHNIQUE: Frontal and lateral views of the chest are obtained. FINDINGS: Patient is rotated and post median sternotomy, aortic valve replacement. Prominent lung vo lumes compatible with underlying COPD, the interstitium is increased. No pneumothorax or pleural effu fina evident. Cardiac mediastinal silhouette, pulmonary vascularity and janett not significant changed. There is improvement in aeration. Coronary artery calcifications and stents present. There are overl maribell cardiac leads. Surgical clips in the upper abdomen. IMPRESSION: Improvement in patient's volume status.
[2016-11-15 12:06] LABS: Glucose,Whole Blood 147 mg/dL (75-99)
[2016-11-15 12:49] VITALS: BP 124/75; PULSE 80; TEMP 98.4
== END 2016-11-15 15:48 | DRG 310 ==
LOC: EC 21:42 → 6SEL 22:46
PROVIDERS: ADMIT Internal Medicine; ATTEND Internal Medicine
DX: I48.1 Persistent atrial fibrillation (principal); E11.9 Type 2 diabetes mellitus without complications; G30.9 Alzheimer's disease, unspecified; E86.0 Dehydration; F02.80 Dementia in other diseases classified elsewhere, unspecified severity, without behavioral disturbance, psychotic disturbance, mood disturbance, and anxiety; F32.9 Major depressive disorder, single episode, unspecified; Q85.00 Neurofibromatosis, unspecified; E78.5 Hyperlipidemia, unspecified; I10 Essential (primary) hypertension; R29.6 Repeated falls; J06.9 Acute upper respiratory infection, unspecified; Z91.81 History of falling; Z95.2 Presence of prosthetic heart valve; Z79.84 Long term (current) use of oral hypoglycemic drugs; Z79.82 Long term (current) use of aspirin; Z79.01 Long term (current) use of anticoagulants; Z79.899 Other long term (current) drug therapy; W19.XXXA Unspecified fall, initial encounter; Y92.009 Unspecified place in unspecified non-institutional (private) residence as the place of occurrence of the external cause
CPT/HCPCS: 36415; 70450; 71020; 80048; 80053; 80061; 81001; 82140; 82550; 82553; 83605; 83735; 84100; 84443; 84484; 85025; 85027; 85610; 85730; 93005; 93306; 94760; 96365; 96366; 96376; 99291

== ENCOUNTER 2020-03-14 08:21 | Inpatient (IN) | payer MEDICARE, OTHER ==
[2020-03-14] MEDS ORDERED: SODIUM CHLORIDE 0.9% 1,000 ML IV ONE ×2 (08:44→09:42)
--- NOTE | 2020-03-14 09:03 | ED ---
General Adult HPI - General Chief complaint: Fall Stated complaint: Fall Time Seen by Provider: 03/14/20 08:35 Source: patient, EMS, RN notes reviewed, old records reviewed Mode of arrival: EMS Limitations: altered mental status - History of Present Illness Initial comments: 84-year-old [facility] with [facility], low blood pressu re. Patient has a DO NOT RESUSCITATE order and a do not hospitalize order however he was transported to the emergency department. The case was initially discussed with the patient's daughter including the documentation provided by the [facility] and patient's daughter doesn't wish for evaluation and treatment including hospitalization. Patient himself has no complaints. No external signs of trauma by EMS. History of A. fib on Eliquis - Related Data Home Medications Medication Instructions Recorded Confirmed Aspirin EC [Ecotrin Low Dose] 81 mg PO DAILY 07/30/16 03/14/20 Digoxin [Lanoxin] 125 mcg PO DAILY 07/30/16 03/14/20 Lisinopril [Zestril] 10 mg PO DAILY 07/30/16 03/14/20 metFORMIN HCL [Glucophage] 500 mg PO BID@0800,1700 07/30/16 03/14/20 Venlafaxine HCl [Effexor XR] 75 mg PO DAILY 11/11/16 03/14/20 Acetaminophen [Tylenol 8 Hour] 650 mg PO Q4H PRN 03/14/20 03/14/20 Apixaban [Eliquis] 2.5 mg PO BID 03/14/20 03/14/20 Bisacodyl [Dulcolax] 10 mg RECTAL DAILY PRN 03/14/20 03/14/20 Glucerna Shake 120 ml PO TID-W/MEALS 03/14/20 03/14/20 INSULIN ASPART (NovoLOG) [NovoLOG 5 unit SQ TID@0700,1100,1630 03/14/20 03/14/20 (formulary)] Insulin Glargine [Lantus] 26 unit SQ HS 03/14/20 03/14/20 Lactobacillus Acidophilus 1 tab PO DAILY 03/14/20 03/14/20 [Acidophilus] Loperamide HCl [Imodium A-D] 1 - 2 mg PO TID PRN MDD 4 tabs 03/14/20 03/14/20 Magnesium Hydroxide [Milk of 2,400 mg PO DAILY PRN 03/14/20 03/14/20 Magnesia] Memantine HCl [Namenda] 7.5 mg PO DAILY 03/14/20 03/14/20 Na Phos,M-B/Na Phos,Di-Ba [Fleet 133 ml RECTAL DAILY PRN 03/14/20 03/14/20 Adult] Polyethylene Glycol 3350 [Miralax] 17 gm PO DAILY PRN 03/14/20 03/14/20 Rivastigmine 4.6MG/24Hr Patch 1 patch TRANSDERM Q24HR 03/14/20 03/14/20 [Exelon 4.6MG/24Hr Patch] Previous Rx's Medication Instructions Recorded Metoprolol Tartrate [Lopressor] 50 mg PO BID tab 11/15/16 Allergies Allergy/AdvReac Type Severity Reaction Status Date / Time No Known Allergies Allergy Verified 03/14/20 08:29 Review of Systems ROS Statement: Those systems with pertinent positive or pertinent negative responses have been documented in the HPI. ROS Other: All systems not noted in ROS Statement are negative. 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 History of Any Multi-Drug Resistant Organisms: ESBL Date of last positivie culture/infection: 01/06/19 MDRO Source:: ESBL URINE Past Surgical History: Cardiac Valve Replacement, Coronary Bypass/CABG, Heart C atheterization With Stent, Orthopedic Surgery, Tonsillectomy Additional Past Surgical History / Comment(s): Hip fracture with replacement, shoulder fracture - no surgery, aortic valve replacement, cardioverions, stents x2 Past Anesthesia/Blood Transfusion Reactions: No Reported Reaction Date of Last Stent Placement:: unk Past Psychological History: Depression Past Alcohol Use History: None Reported Past Drug Use History: None Reported - Past Family History Mother Family Medical History: CVA/TIA Father Family Medical History: Cancer Additional Family Medical History / Comment(s): stomach cancer Brother(s) Family Medical History: Blood Disorder Additional Family Medical History / Comment(s): multi organ failure Sister(s) Family Medical History: CVA/TIA, Musculoskeletal Disorder Son(s) Family Medical History: Eye Disorder, Seizure Disorder Additional Family Medical History / Comment(s): benign brain tumor affecting vision, ciliac disease Daughter(s) Additional Family Medical History / Comment(s): Aspergers General Exam Limitations: altered mental status General appearance: alert Head exam: Present: atraumatic Eye exam: Present: PERRL ENT exam: Present: mucous membranes dry Respiratory exam: Present: normal lung sounds bilaterally. Absent: respiratory distress Cardiovascular Exam: Present: tachycardia, irregular rhythm GI/Abdominal exam: Present: soft. Absent: distended, tenderness, guarding Extremities exam: Present: normal inspection, normal capillary refill. Absent: pedal edema Neurological exam: Present: alert. Absent: motor sensory deficit Skin exam: Present: warm, dry. Absent: cyanosis, diaphoretic Course Vital Signs 03/14/20 08:25 Temperature 97.6 F Pulse Rate 126 H Respiratory 16 Rate Blood Pressure 76/51 O2 Sat by Pulse 93 L Oximetry EKG Findings - EKG Comments: EKG Findings:: EKG: Atrial fibrillation with rapid ventricular response, rate of 121, no ST segment elevation, QRS duration 86, QTC 491. Medical Decision Making - Medical Decision Making 84-year-old male [facility] with [facility]itness[facility], hypotension. Patient arrives in A. fib with RVR, hypotensive, very dry mucous membranes. No external signs of trauma. There was concern regarding the patient's DO NOT RESUSCITATE status and his do not hospitalize status on doc umentation from the [facility] this was clarified with the daughter who does wish for medical management at this time. Workup in the emergency department reveals patient is in acute renal failure with a creatinine of 7.8 he is acidotic which I suspect is a combination of uremia and lactic acidosis with a CO2 of 9 lactic acid 2.6. He has a white blood cell count of 18 likely secondary to sepsis. Chest x-ray concerning for mild volume overload. No focal pneumonia. Urinalysis was attempted by straight cath, patient had no urine. This will be attempted after IV hydration. He is given a 2 L normal saline bolus with improvement in blood pressure. Patient has been evaluated by his primary care physician Dr. Navarro in the emergency department and will be admitted for medical management at this time. - Lab Data Result diagrams: 03/14/20 08:35 03/14/20 08:35 Lab Results 03/14/20 03/14/20 03/14/20 Range/Units 08:35 08:35 09:38 WBC 18.0 H (3.8-10.6) k/uL RBC 5.73 (4.30-5.90) m/uL Hgb 17.2 (13.0-17.5) gm/dL Hct 54.4 H (39.0-53.0) % MCV 94.9 (80.0-100.0) fL MCH 30.0 (25.0-35.0) pg MCHC 31.6 (31.0-37.0) g/dL RDW 15.6 H (11.5-15.5) % Plt Count 350 (150-450) k/uL Neutrophils % 78 % Lymphocytes % 11 % Monocytes % 8 % Eosinophils % 1 % Basophils % 0 % Neutrophils # 14.0 H (1.3-7.7) k/uL Lymphocytes # 1.9 (1.0-4.8) k/uL Monocytes # 1.5 H (0-1.0) k/uL Eosinophils # 0.2 (0-0.7) k/uL Basophils # 0.1 (0-0.2) k/uL Manual Slide Review Performed Hypochromasia Slight Sodium 139 (137-145) mmol/L Potassium 4.8 (3.5-5.1) mmol/L Chloride 108 H (98-107) mmol/L Carbon Dioxide 9 L* (22-30) mmol/L Anion Gap 22 mmol/L BUN 119 H* (9-20) mg/dL Creatinine 7.80 H* (0.66-1.25) mg/dL Est GFR (CKD-EPI)AfAm 7 (>60 ml/min/1.73 sqM) Est GFR (CKD-EPI)NonAf 6 (>60 ml/min/1.73 sqM) Glucose 147 H (74-99) mg/dL Plasma Lactic Acid Derrek 2.6 H* (0.7-2.0) mmol/L Calcium 8.8 (8.4-10.2) mg/dL Total Bilirubin 0.5 (0.2-1.3) mg/dL AST 14 L (17-59) U/L ALT 10 (4-49) U/L Alkaline Phosphatase 92 (38-126) U/L Total Protein 7.6 (6.3-8.2) g/dL Albumin 3.5 (3.5-5.0) g/dL Critical Care Time Critical Care Time: Yes Total Critical Care Time: 35 Disposition Clinical Impression: Atrial fibrillation with RVR, Acute renal failure, Sepsis Disposition: ADMITTED IP TO THIS [facility] Condition: Serious Is patient prescribed a controlled substance at d/c from ED?: No Referrals: Deven Navarro MD [Primary Care Provider] - 1-2 days Decision to Admit Reason: Admit from EC Decision Date: 03/14/20 Decision Time: 10:18
[2020-03-14 09:07] LABS: Basophils # (A) 0.1 k/uL (0-0.2); Basophils % (A) 0 %; Eosinophils # (A) 0.2 k/uL (0-0.7); Eosinophils % (A) 1 %; HCT 54.4 % (39.0-53.0); HGB 17.2 gm/dL (13.0-17.5); Hypochromasia Slight; Lymphocytes # (A) 1.9 k/uL (1.0-4.8); Lymphocytes % (A) 11 %; MCHC 31.6 g/dL (31.0-37.0); MCV 94.9 fL (80.0-100.0); Monocytes # (A) 1.5 k/uL (0-1.0); Monocytes % (A) 8 %; Neutrophils % (A) 78 %; Platelet Count 350 k/uL (150-450); RBC 5.73 m/uL (4.30-5.90); RDW 15.6 % (11.5-15.5)
[2020-03-14] MEDS ORDERED: cefTRIAXone IN SWFI 1,000 MG/10 ML SYRINGE IVP STA (09:16)
[2020-03-14 09:27] LABS: Albumin 3.5 g/dL (3.5-5.0); Calcium 8.8 mg/dL (8.4-10.2); Potassium 4.8 mmol/L (3.5-5.1); Total Bilirubin 0.5 mg/dL (0.2-1.3); Total Protein 7.6 g/dL (6.3-8.2)
[2020-03-14] MEDS ORDERED: SODIUM CHLORIDE 0.9% 1,000 ML IV SCH (09:45)
--- NOTE | 2020-03-14 10:08 | XR ---
EXAMINATION TYPE: XR chest 2V DATE OF EXAM: 03/14/2020 COMPARISON: 11/15/2016 INDICATION: Fall TECHNIQUE: Frontal and lateral views of the chest are obtained. FINDINGS: The heart size is normal. Sternotomy wires are present prior cardiac valve surgery The pulmonary vasculature is upper limits of normal. A suspicious focal consolidation is not evident.. Some degenerative changes of the shoulders. No acute fractures are identified. No pneumothorax is evident. IMPRESSION: 1. Slight vascular prominence. Correlate for developing volume overload. 2. No suspicious acute posttraumatic changes.
[2020-03-14] MEDS ORDERED: ONDANSETRON 4 MG/2 ML VIAL IVP PRN (10:12)
[2020-03-14] MEDS ORDERED: MORPHINE SULFATE 4 MG/ML SYRINGE IV PRN (10:12)
[2020-03-14] MEDS ORDERED: NALOXONE 0.4 MG/ML 1 ML VIAL IV PRN (10:12)
[2020-03-14] MEDS ORDERED: ACETAMINOPHEN TAB 325 MG TAB PO PRN (11:37)
[2020-03-14] MEDS ORDERED: polyethylene glycoL 3350 17 GM POWD.PACK PO PRN (11:37)
[2020-03-14] MEDS ORDERED: MAGNESIUM HYDROXIDE 2,400 MG/10 ML CUP PO PRN (11:37)
[2020-03-14] MEDS ORDERED: bisacodyL 10 MG SUPP RECTAL PRN (11:37)
[2020-03-14] MEDS ORDERED: DIGOXIN 125 MCG TAB PO SCH (12:00)
--- NOTE | 2020-03-14 12:17 | P.NPCON ---
History of Present Illness - Reason for Consult acute renal failure - History of Present Illness Reason for consultation: Acute kidney injury History of present illness: Patient is a 84-year-old male seen in renal consultation for acute kidney injury. Creatinine was 7.8 on admission. Creatinine in October 2019 was 1.35 and 1.2 in May 2019. Patient presented after he sustained a fall and was brought to the hospital by the EMS. Patient was noted to be severely hypotensive and has received 2 L of normal saline so far. Patient is not a reliable historian. he does respond to some questions but again is not reliable. He denies chest pain or shortness of breath. He denies vomiting or diarrhea. Mosqueda catheter was placed and he hasn't made any urine so far. He does have history of diabetes mellitus and I do see metformin as part of his medications. Additionally he was also on lisinopril which is held. He was noted to be in A. fib with heart rate in the 120s. No edema. I don't see any nonsteroidals and his home medications. Vital signs - hypotensive. Afebrile. General: The patient appeared well nourished and normally developed. HEENT: Head exam is unremarkable. Neck is without jugular venous distension. LUNGS: Lungs are clear to auscultation and percussion. Breath sounds decreased. HEART: Irregular rate and rhythm. ABDOMEN: Soft, nontender. EXTREMITITES: No clubbing, cyanosis, or edema. 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 History of Any Multi-Drug Resistant Organisms: ESBL Date of last positivie culture/infection: 01/06/19 MDRO Source:: ESBL URINE Past Surgical History: Cardiac Valve Replacement, Coronary Bypass/CABG, Heart Catheterization With Stent, Orthopedic Surgery, Tonsillectomy Additional Past Surgical History / Comment(s): Hip fracture with replacement, shoulder fracture - no surgery, aortic valve replacement, cardioverions, stents x2 Past Anesthesia/Blood Transfusion Reactions: No Reported Reaction Date of Last Stent Placement:: unk Past Psychological History: Depression Past Alcohol Use History: None Reported Past Drug Use History: None Reported - Past Family History Mother Family Medical History: CVA/TIA Father Family Medical History: Cancer Additional Family Medical History / Comment(s): stomach cancer Brother(s) Family Medical History: Blood Disorder Additional Family Medical History / Comment(s): multi organ failure Sister(s) Family Medical History: CVA/TIA, Musculoskeletal Disorder Son(s) Family Medical History: Eye Disorder, Seizure Disorder Additional Family Medical History / Comment(s): benign brain tumor affecting vision, ciliac disease Daughter(s) Additional Family Medical History / Comment(s): Aspergers Medications and Allergies Home Medications Medication Instructions Recorded Confirmed Type Aspirin EC [Ecotrin Low Dose] 81 mg PO DAILY 07/30/16 03/14/20 History Digoxin [Lanoxin] 125 mcg PO DAILY 07/30/16 03/14/20 History Lisinopril [Zestril] 10 mg PO DAILY 07/30/16 03/14/20 History metFORMIN HCL [Glucophage] 500 mg PO BID@0800,1700 07/30/16 03/14/20 History Venlafaxine HCl [Effexor XR] 75 mg PO DAILY 11/11/16 03/14/20 History Metoprolol Tartrate [Lopressor] 50 mg PO BID tab 11/15/16 03/14/20 Rx Acetaminophen [Tylenol 8 Hour] 650 mg PO Q4H PRN 03/14/20 03/14/20 History Apixaban [Eliquis] 2.5 mg PO BID 03/14/20 03/14/20 History Bisacodyl [Dulcolax] 10 mg RECTAL DAILY PRN 03/14/20 03/14/20 History Glucerna Shake 120 ml PO TID-W/MEALS 03/14/20 03/14/20 History INSULIN ASPART (NovoLOG) [NovoLOG 5 unit SQ TID@0700,1100,1630 03/14/20 03/14/20 History (formulary)] Insulin Glargine [Lantus] 26 unit SQ HS 03/14/20 03/14/20 History Lactobacillus Acidophilus 1 tab PO DAILY 03/14/20 03/14/20 History [Acidophilus] Loperamide HCl [Imodium A-D] 1 - 2 mg PO TID PRN MDD 4 tabs 03/14/20 03/14/20 History Magnesium Hydroxide [Milk of 2,400 mg PO DAILY PRN 03/14/20 03/14/20 History Magnesia] Memantine HCl [Namenda] 7.5 mg PO DAILY 03/14/20 03/14/20 History Na Phos,M-B/Na Phos,Di-Ba [Fleet 133 ml RECTAL DAILY PRN 03/14/20 03/14/20 History Adult] Polyethylene Glycol 3350 [Miralax] 17 gm PO DAILY PRN 03/14/20 03/14/20 History Rivastigmine 4.6MG/24Hr Patch 1 patch TRANSDERM Q24HR 03/14/20 03/14/20 History [Exelon 4.6MG/24Hr Patch] Allergies Allergy/AdvReac Type Severity Reaction Status Date / Time No Known Allergies Allergy Verified 03/14/20 08:29 Physical Exam Vitals: Vital Signs Temp Pulse Resp BP Pulse Ox 03/14/20 11:00 128 H 22 88/47 92 L 03/14/20 10:30 116 H 22 88/63 94 L 03/14/20 10:00 114 H 86/61 03/14/20 09:30 124 H 25 H 90/56 98 03/14/20 09:00 110 H 20 116/79 98 03/14/20 08:30 93 L 03/14/20 08:25 97.6 F 126 H 16 76/51 93 L Intake and Output 03/13/20 03/14/20 03/14/20 22:59 06:59 14:59 Other: Weight 98.883 kg Results - Lab Results Most recent lab results Calcium 8.8 mg/dL (8.4-10.2) 03/14/20 08:35 03/14/20 08:35 03/14/20 08:35 Assessment and Plan Plan: Assessment: 1. Acute kidney injury secondary to ATN secondary to hypotension. Creatinine 7.8 on admission. Creatinine in October 2019 was near 1.3. 2. Metabolic acidosis secondary to acute kidney injury, metformin and lactic acidosis. 3. Hypotension. A little better with IV fluids. Concern for sepsis. 4. A. fib with RVR. 5. Insulin-dependent diabetes mellitus. Plan: Start isotonic bicarbonate drip to be run at 125 mL an hour. Check a UA and renal ultrasound. Follow-up cultures. Patient is DO NOT RESUSCITATE and in the records it appears he didn't want hospitalizations either. Per ER physician, case was discussed with the daughter and she is okay with IVFs and conservative management at this time. Maintain Mosqueda catheter. Continue to monitor renal function and urine output closely. Recheck labs this evening. Monitor hemodynamics closely. May need to be started on vasopressors. Thank you for the consultation. I will continue to follow the patient with you during his hospital stay.
[2020-03-14 13:00] LABS: Glucose,Whole Blood 112 mg/dL (75-99)
[2020-03-14] MEDS: DEXTROSE 5% IN WATER 1,000 ML with SODIUM BICARB (1 MEQ/ML) 150 ML IV SCH ×2 (13:24→21:39)
[2020-03-14] MEDS: METOPROLOL TARTRATE 50 MG TAB PO SCH ×2 (14:01→20:44)
--- NOTE | 2020-03-14 14:56 | P.HPIM ---
History of Present Illness H&P Date: 03/14/20 Chief Complaint: Hypotension, unresponsive History of Present Illness This is an 84-year-old male previously a patient of Dr. Peralta at [facility] and recently transitioned to Dr. Navarro with past medical history of coronary artery disease status post CABG and stent 2 and aortic valve replacement, chronic persistent atrial fibrillation status post cardioversion,, hypertension, hyperlipidemia, diabetes mellitus type 2, Alzheimer dementia, neuro fibrosis, history of renal cancer status post right nephrectomy, melanoma. Patient had episode where he was found on the floor at the [place] [facility] unresponsive with a low blood pressure of 60/40. Patient did not have any cough or shortness of breath. He has known history as above. Patient has been a no code and no transfer to the hospital but family decided to send him in the hospital for evaluation. EKG was atrial fibrillation at rate of 121. Blood work revealed WBC 18, hemoglobin 17.2, platelet count 350. Chloride 108, CO2 9, BUN 119, creatinine 7.8, blood sugar 147. Initial lactic acid 2.6. Mosqueda catheter was placed and patient had no urine output. Chest x-ray showsshows a cute posttraumatic changes. Slight vascular prominence. Correlate for developing volume overload. Patient was given 2 L of IV fluids, Rocephin and admitted to the intensive care unit. Consults were added for Dr. Hicks and Dr. Noriega. Family does not plan for hemodialysis. Review of Systems Constitutional: No fever, no chills, no documented fever. No weight change. Reports weakness, reports fatigue reports lethargy. EENT: No headache. Chronic vision changes, chronic hearing loss. No epistaxis. No sore throat. Lungs: No shortness of breath, cough, no sputum production. No wheezing. Cardiovascular: No chest pain, no lower extremity edema. No palpitations. No paroxysmal nocturnal dyspnea. No orthopnea. No lightheadedness or dizziness. No syncopal episodes. Abdominal: No abdominal pain. No nausea, vomiting. No diarrhea. No constipation. No bloody or tarry stools. Genitourinary: No dysuria, increased frequency, urgency. No urinary retention. Musculoskeletal: No myalgias. Reports muscle weakness, reports gait dysfunction, no frequent falls. Integumentary: No wounds, no lesions. No rash or pruritus. Neurologic: No aphasia. No facial droop. Reports change in mentation. Psychiatric: No depression. No anxiety. No mood swings. Endocrine: No abnormal blood sugars. No weight change. Physical Examination Gen: This is an 84-year-old male. He is resting on the ER stretcher and appears to be comfortable at rest. Patient is pleasantly confused. HEENT: Head is atraumatic, normocephalic. Pupils equal, round. Sclerae is anicteric. NECK: Supple. No JVD. No lymphadenopathy. No thyromegaly. LUNGS: Clear to auscultation. No wheezes or rhonchi. No intercostal retractions. HEART: Irregularly irregular, systolic murmur. ABDOMEN: Soft. Bowel sounds are present. No masses. No tenderness. EXTREMITIES: No pedal edema. No calf tenderness. NEUROLOGICAL: Patient is awake, alert and oriented to person and place. Generalized weakness noted. Assessment and Plan 1. Acute kidney injury with severe metabolic acidosis and hypotension. Patient admitted into the intensive care unit. Consults with tile grinder and nephrology. 2. Acute kidney injury secondary to ATN, patient is oliguric. Mosqueda catheter will was placed. Monitor XIANG. Monitor renal function. Metformin, lisinopril on hold. 3. Chronic persistent atrial fibrillation presenting with RVR. Continue digoxin 125 g daily, Lopressor 50 mg twice daily, eliquis 2.5 mg twice daily. 4. Leukocytosis and SIRS with no focal area of infection. Patient is status post 1 dose of Rocephin. 5. History of coronary artery disease status post CABG and stent placement as well as aortic valve replacement. Continue aspirin 81 mg daily and Lopressor. 6. Diabetes mellitus type 2, insulin requiring. Levemir resumed at lower dose 20 units at bedtime, NovoLog scale before meals and at bedtime. 7. Alzheimer's dementia. Continue Namenda 7.5 mg daily. 8. Hypertension. Continue Lopressor. 9. Hyperlipidemia. Patient not on statin. 10. Neuro fibrosis, stable. 11. History of renal cancer status post nephrectomy with chronic kidney disease stage III. 12. COVID-19 infection not present. CODE STATUS: No code Prognosis: Poor Patient will be admitted to the hospital for a minimum of 2 night stay. Discharge plan: Return to [facility] Impression and plan of care have been directed as dictated by the signing physician. Suzy Choi nurse practitioner acting as scribe for signing physician. Past Medical History Past Medical History: Atrial Fibrillation, Coronary Artery Disease (CAD), Cancer, Dementia, Diabetes Mellitus, Eye Disorder, Hearing Disorder / Deafness, Hyperlipidemia, Hypertension, Memory Impairment, Renal Disease, Skin Disorder Additional Past Medical History / Comment(s): neurofibrosis, alzheimers, renal cancer with removal of right kidney, melanoma on bilateral ears and back with removal, retinal problems ( unsure of what it's called), pt is [place] - pt's states hearing aids don't work. History of Any Multi-Drug Resistant Organisms: ESBL Date of last positivie culture/infection: 01/06/19 MDRO Source:: ESBL URINE Past Surgical History: Cardiac Valve Replacement, Coronary Bypass/CABG, Heart Catheterization With Stent, Orthopedic Surgery, Tonsillectomy Additional Past Surgical History / Comment(s): Hip fracture with replacement, shoulder fracture - no surgery, aortic valve replacement, cardioverions, stents x2 Past Anesthesia/Blood Transfusion Reactions: No Reported Reaction Date of Last Stent Placement:: unk Past Psychological History: Depression Past Alcohol Use History: None Reported Additional Past Alcohol Use History / Comment(s): Patient is a lifelong nonsmoker. No alcohol use. He has been a long-term resident at [facility]. He worked in the past at the [employer]. Past Drug Use History: None Reported - Past Family History Mother Family Medical History: CVA/TIA Additional Family Medical History / Comment(s): Mother in her 90s. Father Family Medical History: Cancer Additional Family Medical History / Comment(s): stomach cancer Brother(s) Family Medical History: Blood Disorder Additional Family Medical History / Comment(s): multi organ failure patient had total of 2 brothers. Sister(s) Family Medical History: CVA/TIA, Musculoskeletal Disorder Additional Family Medical History / Comment(s): Patient has one sister. Son(s) Family Medical History: Eye Disorder, Seizure Disorder Additional Family Medical History / Comment(s): Patient has 3 sons. benign brain tumor affecting vision, celiac disease Daughter(s) Additional Family Medical History / Comment(s): Aspergers Medications and Allergies Home Medications Medication Instructions Recorded Confirmed Type Aspirin EC [Ecotrin Low Dose] 81 mg PO DAILY 07/30/16 03/14/20 History Digoxin [Lanoxin] 125 mcg PO DAILY 07/30/16 03/14/20 History Lisinopril [Zestril] 10 mg PO DAILY 07/30/16 03/14/20 History metFORMIN HCL [Glucophage] 500 mg PO BID@0800,1700 07/30/16 03/14/20 History Venlafaxine HCl [Effexor XR] 75 mg PO DAILY 11/11/16 03/14/20 History Metoprolol Tartrate [Lopressor] 50 mg PO BID tab 11/15/16 03/14/20 Rx Acetaminophen [Tylenol 8 Hour] 650 mg PO Q4H PRN 03/14/20 03/14/20 History Apixaban [Eliquis] 2.5 mg PO BID 03/14/20 03/14/20 History Bisacodyl [Dulcolax] 10 mg RECTAL DAILY PRN 03/14/20 03/14/20 History Glucerna Shake 120 ml PO TID-W/MEALS 03/14/20 03/14/20 History INSULIN ASPART (NovoLOG) [NovoLOG 5 unit SQ TID@0700,1100,1630 03/14/20 03/14/20 History (formulary)] Insulin Glargine [Lantus] 26 unit SQ HS 03/14/20 03/14/20 History Lactobacillus Acidophilus 1 tab PO DAILY 03/14/20 03/14/20 History [Acidophilus] Loperamide HCl [Imodium A-D] 1 - 2 mg PO TID PRN MDD 4 tabs 03/14/20 03/14/20 History Magnesium Hydroxide [Milk of 2,400 mg PO DAILY PRN 03/14/20 03/14/20 History Magnesia] Memantine HCl [Namenda] 7.5 mg PO DAILY 03/14/20 03/14/20 History Na Phos,M-B/Na Phos,Di-Ba [Fleet 133 ml RECTAL DAILY PRN 03/14/20 03/14/20 History Adult] Polyethylene Glycol 3350 [Miralax] 17 gm PO DAILY PRN 03/14/20 03/14/20 History Rivastigmine 4.6MG/24Hr Patch 1 patch TRANSDERM Q24HR 03/14/20 03/14/20 History [Exelon 4.6MG/24Hr Patch] Allergies Allergy/AdvReac Type Severity Reaction Status Date / Time No Known Allergies Allergy Verified 03/14/20 08:29 Physical Exam Vitals: Vital Signs Temp Pulse Resp BP Pulse Ox 03/14/20 08:25 97.6 F 126 H 16 76/51 93 L Intake and Output 03/13/20 03/14/20 03/14/20 22:59 06:59 14:59 Other: Weight 98.883 kg Results CBC & Chem 7: 03/15/20 06:00 03/15/20 04:05
--- NOTE | 2020-03-14 15:11 | US ---
EXAMINATION TYPE: US kidneys/renal and bladder DATE OF EXAM: 03/14/2020 COMPARISON: 06/30/2015 CLINICAL HISTORY: vern. EXAM MEASUREMENTS: Right Kidney: 13.2 x 5.7 x 5.8 cm. Left Kidney: Surgically absent Right Kidney: cyst measuring 1.4 x 1.5 x 1.5cm . There may be some central shadowing. Nonobstructing renal stone could be considered. Left Kidney: Surgically absent Bladder: Mosqueda catheter is present. Bladder cannot be evaluated IMPRESSION: Nonobstructing renal stone in right kidney. Right renal cyst. Findings similar 2014.
--- NOTE | 2020-03-14 16:55 | P.CNPUL ---
History of Present Illness Consult date: 03/14/20 Chief complaint: Acute kidney injury History of present illness: 84-year-old female patient got admitted to the intensive care unit because of an acute kidney injury. Note that the patient's renal function back in October 2019 was showing a creatinine of 1.3 and creatinine of 7.8, serum bicarb of 9, anion gap of 22, lactic acid level of 2.3, calcium level of 8.8, the patient apparently was feeling weak and she sustained a fall and she was brought into the hospital by EMS. At the time of arrival, she was hypotensive and the patient received a total of 2 L of IV fluids. The patient was not a reliable historian. She denied having any chest pain or shortness of breath. She denied having any nausea vomiting or diarrhea or abdominal pain. Mosqueda catheter was placed and she hasn't had significant urine output to return after Mosqueda cathet er insertion. She has known history of dementia, coronary artery disease, atrial fibrillation and chronic stage III kidney disease with a baseline creatinine of 1.35. She has had previous history of renal cell cancer and she has undergone a right nephrectomy. She has neurofibromatosis and history of melanoma and ears and the back that were resected. She is quite hard of hearing at this point in time. In terms of her heart disease, the patient has undergone a previous coronary artery bypass surgery and previous cardiac catheterization and stenting and a previous history of aortic valve replacement.. She has been maintained on an DANIELLE inhibitor. Also, sound of the kidneys was done and showed a nonobstructive renal stone in the right adrenal cyst on the left. Findings were similar to compared to the previous ultrasound from 2014. Currently, the patient is receiving IV fluids in the form of a bicarb infusions a rate of 125 mL an hour. Review of Systems Constitutional: No fever, no chills, no documented fever. No weight change. Reports weakness, reports fatigue reports lethargy. EENT: No headache. Chronic vision changes, chronic hearing loss. No epistaxis. No sore throat. Lungs: No shortness of breath, cough, no sputum production. No wheezing. Cardiovascular: No chest pain, no lower extremity edema. No palpitations. No paroxysmal nocturnal dyspnea. No orthopnea. No lightheadedness or dizziness. No syncopal episodes. Abdominal: No abdominal pain. No nausea, vomiting. No diarrhea. No constipation. No bloody or tarry stools. Genitourinary: No dysuria, increased frequency, urgency. No urinary retention. There is diminishment in the urine output. The patient has a Mosqueda catheter in place for now. Musculoskeletal: No myalgias. Reports muscle weakness, reports gait dysfunction, no frequent falls. Integumentary: No wounds, no lesions. No rash or pruritus. Neurologic: No aphasia. No facial droop. Reports change in mentation. She is a poor historian. She is an underlying dementia of Alzheimer's type. Psychiatric: No depression. No anxiety. No mood swings. Endocrine: No abnormal blood sugars. No weight change. Past Medical History Past Medical History: Atrial Fibrillation, Coronary Artery Disease (CAD), Cancer, Dementia, Diabetes Mellitus, Eye Disorder, Hearing Disorder / Deafness, Hyperlipidemia, Hypertension, Memory Impairment, Renal Disease, Skin Disorder Additional Past Medical History / Comment(s): neurofibrosis, alzheimers, renal cancer with removal of right kidney, melanoma on bilateral ears and back with removal, retinal problems ( unsure of what it's called), pt is [facility] - pt's states hearing aids don't work. History of Any Multi-Drug Resistant Organisms: ESBL Date of last positivie culture/infection: 01/06/19 MDRO Source:: ESBL URINE Past Surgical History: Cardiac Valve Replacement, Coronary Bypass/CABG, Heart Catheterization With Stent, Orthopedic Surgery, Tonsillectomy Additional Past Surgical History / Comment(s): Hip fracture with replacement, shoulder fracture - no surgery, aortic valve replacement, cardioverions, stents x2 Past Anesthesia/Blood Transfusion Reactions: No Reported Reaction Date of Last Stent Placement:: unk Past Psychological History: Depression Past Alcohol Use History: None Reported Additional Past Alcohol Use History / Comment(s): Patient is a lifelong nonsmoker. No alcohol use. He has been a long-term resident at [facility]. He worked in the past at the [employer]. Past Drug Use History: None Reported - Past Family History Mother Family Medical History: CVA/TIA Additional Family Medical History / Comment(s): Mother in her 90s. Father Family Medical History: Cancer Additional Family Medical History / Comment(s): stomach cancer Brother(s) Family Medical History: Blood Disorder Additional Family Medical History / Comment(s): multi organ failure patient had total of 2 brothers. Sister(s) Family Medical History: CVA/TIA, Musculoskeletal Disorder Additional Family Medical History / Comment(s): Patient has one sister. Son(s) Family Medical History: Eye Disorder, Seizure Disorder Additional Family Medical History / Comment(s): Patient has 3 sons. benign brain tumor affecting vision, celiac disease Daughter(s) Additional Family Medical History / Comment(s): Aspergers Medications and Allergies Home Medications Medication Instructions Recorded Confirmed Type RX: Aspirin EC [Ecotrin Low Dose] 81 mg PO DAILY 07/30/16 03/14/20 History RX: Digoxin [Lanoxin] 125 mcg PO DAILY 07/30/16 03/14/20 History RX: Lisinopril [Zestril] 10 mg PO DAILY 07/30/16 03/14/20 History RX: metFORMIN HCL [Glucophage] 500 mg PO BID@0800,1700 07/30/16 03/14/20 History RX: Venlafaxine HCl [Effexor XR] 75 mg PO DAILY 11/11/16 03/14/20 History RX: Metoprolol Tartrate [Lopressor] 50 mg PO BID tab 11/15/16 03/14/20 Rx Acetaminophen [Tylenol 8 Hour] 650 mg PO Q4H PRN 03/14/20 03/14/20 History Apixaban [Eliquis] 2.5 mg PO BID 03/14/20 03/14/20 History Bisacodyl [Dulcolax] 10 mg RECTAL DAILY PRN 03/14/20 03/14/20 History INSULIN ASPART (NovoLOG) [NovoLOG 5 unit SQ TID@0700,1100,1630 03/14/20 03/14/20 History (formulary)] Insulin Glargine [Lantus] 26 unit SQ HS 03/14/20 03/14/20 History Lactobacillus Acidophilus 1 tab PO DAILY 03/14/20 03/14/20 History [Acidophilus] Loperamide HCl [Imodium A-D] 1 - 2 mg PO TID PRN MDD 4 tabs 03/14/20 03/14/20 History Magnesium Hydroxide [Milk of 2,400 mg PO DAILY PRN 03/14/20 03/14/20 History Magnesia] Memantine HCl [Namenda] 7.5 mg PO DAILY 03/14/20 03/14/20 History Na Phos,M-B/Na Phos,Di-Ba [Fleet 133 ml RECTAL DAILY PRN 03/14/20 03/14/20 History Adult] Polyethylene Glycol 3350 [Miralax] 17 gm PO DAILY PRN 03/14/20 03/14/20 History RX: Glucerna Shake 120 ml PO TID-W/MEALS 03/14/20 03/14/20 History Rivastigmine 4.6MG/24Hr Patch 1 patch TRANSDERM Q24HR 03/14/20 03/14/20 History [Exelon 4.6MG/24Hr Patch] Allergies Allergy/AdvReac Type Severity Reaction Status Date / Time No Known Allergies Allergy Verified 03/14/20 08:29 Physical Exam Vitals: Vital Signs Temp Pulse Resp BP Pulse Ox 03/14/20 15:00 123 H 19 94/61 03/14/20 14:30 116 H 22 87/55 100 03/14/20 14:00 113 H 87/55 100 03/14/20 13:30 116 H 107/63 100 03/14/20 13:00 128 H 104/70 100 03/14/20 12:32 98.3 F 114 H 15 03/14/20 12:00 125 H 21 91/64 98 03/14/20 11:30 24 86/54 03/14/20 11:00 128 H 22 88/47 92 L 03/14/20 10:30 116 H 22 88/63 94 L 03/14/20 10:00 114 H 86/61 03/14/20 09:30 124 H 25 H 90/56 98 03/14/20 09:00 110 H 20 116/79 98 03/14/20 08:30 93 L 03/14/20 08:25 97.6 F 126 H 16 76/51 93 L Intake and Output 03/14/20 03/14/20 03/14/20 06:59 14:59 22:59 Intake Total 125 125 Output Total 0 Balance 125 125 Intake: IV 125 125 Dextrose 5% in Water 1, 125 125 000 ml @ 125 mls/hr IV . Q9H12M THEA with Sodium Bicarb (1 Meq/ml) 150 ml Rx#:[id number] Output: Urine 0 Other: Voiding Method Indwelling Catheter Indwelling Catheter Weight 98.883 kg Gen. appearance she is calm and comfortable likely distress and she is pleasantly confused. The patient has extensive neurofibromatosis skin lesions scattered throughout the body Head exam was generally normal. There was no scleral icterus or corneal arcus. Mucous membranes were extremely dry Neck was supple and without jugular venous distension, thyromegaly, or carotid bruits. Carotids were easily palpable bilaterally. There was no adenopathy. Muc ous membranes are dry and the patient has no JVDs. Lungs were clear to auscultation and percussion, and with normal diaphragmatic excursion. No wheezes or rales were noted. Heart sounds are irregular consistent with atrial fibrillation. There is a chronic systolic ejection murmur grade 2/6 heard over the apex. This is radiating to the neck. No heave or any thrill. The thoracotomy scar over the anterior chest area is dry clean and intact Abdominal exam revealed normal bowel sounds. The abdomen was soft, non-tender, and without masses, organomegaly, or appreciable enlargement of the abdominal aorta. Examination of the extremities revealed easily palpable radial, femoral and pedal pulses. There was no cyanosis, clubbing or edema. Examination of the skin revealed no evidence of significant rashes, suspicious appearing nevi or other concerning lesions. Neurologically the patient is awake and alert, confused and there is global weakness without any focal neurological deficits. Results - Laboratory Findings CBC and BMP: 03/14/20 08:35 03/14/20 08:35 Abnormal lab findings: Abnormal Labs 03/14/20 03/14/20 03/14/20 08:35 08:35 09:38 WBC 18.0 H Hct 54.4 H RDW 15.6 H Neutrophils # 14.0 H Monocytes # 1.5 H Chloride 108 H Carbon Dioxide 9 L* BUN 119 H* Creatinine 7.80 H* Glucose 147 H POC Glucose (mg/dL) Plasma Lactic Acid Derrek 2.6 H* AST 14 L 03/14/20 03/14/20 12:29 12:40 WBC Hct RDW Neutrophils # Monocytes # Chloride Carbon Dioxide BUN Creatinine Glucose POC Glucose (mg/dL) 112 H Plasma Lactic Acid Derrek 2.3 H* AST - Diagnostic Findings Chest x-ray: image reviewed Assessment and Plan Plan: 1 acute kidney injury on top of a mild chronic renal insufficiency as the patient has chronic stage II 55 kidney disease with a baseline creatinine of 1.35 and a GFR of 55 from October 2019. 2 severe underlying metabolic acidosis secondary to above. There may be some contribution from metformin also. 3 hypovolemic hypotension improving with IV fluids 4 coronary artery disease with previous bypass surgery and previous coronary stenting and previous aortic valve replacement 5 chronic atrial fibrillation with rapid ventricular response at time of admission secondary to above and the patient is demented on Eliquis on outpatient basis as a long-term anticoagulants. 6 diabetes mellitus maintenance on outpatient basis. 7 mild leukocytosis 8 history of renal cell carcinoma and the patient is post nephrectomy on the right 9 history of melanoma 10 Alzheimer dementia and the patient is currently pleasantly confused 11 neurofibromatosis 12 history of melanoma, resected 13 hyperlipidemia 14 history of hypertension 15 Hard of hearing Plan Hold DANIELLE inhibitor's, Glucophage, and digoxin for now. May utilize metoprolol of the blood pressure is is stabilized Hold Eliquis based on his underlying renal failure Continue the bicarb infusion and monitor the urine output Check CPK to rule out rhabdomyolysis Given another liter of IV fluids Monitor electrolytes Monitor renal function Ultrasound the kidneys noted Nephrology consultation No signs of any fluid overload We'll continue to follow
[2020-03-14 16:58] LABS: Glucose,Whole Blood 139 mg/dL (75-99)
[2020-03-14] MEDS: INSULIN ASPART (NovoLOG) 100 UNIT/ML VIAL SQ SCH ×2 (18:25→20:51)
[2020-03-14 19:01] LABS: Appearance,Urine Turbid (Clear); Bacteria,Urine Moderate /hpf; Bilirubin,Urine Negative (Negative); Blood,Urine Large (Negative); Budding Yeast,Urine Few /hpf; Color,Urine Red; Glucose,Urine (UA) Negative (Negative); Ketones,Urine Negative (Negative); Leukocyte Esterase,Urine Large (Negative); Mucus,Urine Rare /hpf; Nitrite,Urine Negative (Negative); PH, Urine 5.5 (5.0-8.0); Protein,Urine 2+ (Negative); RBC,Urine >182 /hpf (0-5); Specific Gravity,Urine 1.019 (1.001-1.035); Urobilinogen,Urine <2.0 mg/dL (<2.0); WBC,Urine >182 /hpf (0-5)
[2020-03-14 19:17] LABS: Calcium 8.3 mg/dL (8.4-10.2); Potassium 4.3 mmol/L (3.5-5.1)
[2020-03-14 19:52] LABS: Digoxin 0.4 ng/mL
[2020-03-14] MEDS ORDERED: SODIUM CHLORIDE 0.9% 500 ML 500 ML IV ONE (20:01)
[2020-03-14 20:40] LABS: Glucose,Whole Blood 143 mg/dL (75-99)
[2020-03-14] MEDS: INSULIN DETEMIR (LEVEMIR) 100 UNIT/ML SYR SQ SCH (20:51)
[2020-03-14] MEDS ORDERED: APIXABAN 2.5 MG TABLET PO SCH (21:00)
[2020-03-15 04:39] LABS: Calcium 7.9 mg/dL (8.4-10.2); Phosphorus 5.3 mg/dL (2.5-4.5); Potassium 3.5 mmol/L (3.5-5.1); Total Bilirubin 0.6 mg/dL (0.2-1.3); Total Protein 6.6 g/dL (6.3-8.2)
[2020-03-15] MEDS: METOPROLOL TARTRATE 50 MG TAB PO SCH ×2 (05:26→19:36)
[2020-03-15] MEDS ORDERED: VANCOMYCIN 1,750 MG in SODIUM CHLORIDE 0.9% 500 ML 500 ML IVPB ONE (05:30)
[2020-03-15] MEDS ORDERED: POTASSIUM BICARBONATE/CIT AC 20 MEQ TABLET.EFF NG-TUBE SCH (06:00)
[2020-03-15 06:25] LABS: Basophils # (A) 0.1 k/uL (0-0.2); Basophils % (A) 1 %; Eosinophils # (A) 0.7 k/uL (0-0.7); Eosinophils % (A) 4 %; HGB 15.4 gm/dL (13.0-17.5); Lymphocytes # (A) 1.7 k/uL (1.0-4.8); Lymphocytes % (A) 11 %; MCH 28.9 pg (25.0-35.0); MCHC 31.5 g/dL (31.0-37.0); MCV 91.8 fL (80.0-100.0); Mean Platelet Volume 10.6; Monocytes # (A) 1.2 k/uL (0-1.0); Monocytes % (A) 8 %; Neutrophils # (A) 12.2 k/uL (1.3-7.7); Neutrophils % (A) 74 %; Platelet Count 251 k/uL (150-450); RBC 5.34 m/uL (4.30-5.90); RDW 15.7 % (11.5-15.5); WBC 16.4 k/uL (3.8-10.6)
[2020-03-15 07:04] LABS: Glucose,Whole Blood 88 mg/dL (75-99)
[2020-03-15] MEDS: INSULIN ASPART (NovoLOG) 100 UNIT/ML VIAL SQ SCH ×4 (07:04→21:59)
[2020-03-15] MEDS: DEXTROSE 5% IN WATER 1,000 ML with SODIUM BICARB (1 MEQ/ML) 150 ML IV SCH ×2 (07:13→17:08)
[2020-03-15] MEDS: MEMANTINE 5 MG TAB PO SCH (08:58)
[2020-03-15] MEDS: RIVASTIGMINE 4.6MG/24HR PATCH TRANSDERM SCH (08:58)
[2020-03-15] MEDS: VENLAFAXINE HCL ER 75 MG CAP PO SCH (08:58)
[2020-03-15] MEDS: ASPIRIN 81 MG PO SCH (08:58)
[2020-03-15] MEDS: LACTOBACILLUS ACIDOPH & BULGAR 1 EACH PACKET PO SCH (08:59)
[2020-03-15] MEDS ORDERED: ERTAPENEM 1 GM in SODIUM CHLORIDE 0.9% 50 ML IVPB SCH (09:00)
[2020-03-15] MEDS: VANCOMYCIN IV PER PHARMACY 1 EACH MISC MISCELLANE SCH (09:06)
[2020-03-15] MEDS: NOREPINEPHRINE 4 MG in SODIUM CHLORIDE 0.9% 250 ML IV SCH (09:07)
--- NOTE | 2020-03-15 10:21 | P.PN ---
Subjective Patient is seen in follow-up for acute kidney injury. Renal function improving. Now nonoliguric. Maintain on bicarb drip. Awake but not a reliable historian. No vomiting or diarrhea. Blood pressure stable. Not on vasopressors. Vital signs are stable. General: The patient appeared well nourished and normally developed. HEENT: Head exam is unremarkable. Neck is without jugular venous distension. LUNGS: Lungs are clear to auscultation and percussion. Breath sounds decreased. HEART: Regular rate and rhythm. ABDOMEN: Soft, nontender. EXTREMITITES: No clubbing, cyanosis, or edema. Objective - Vital Signs Vital signs: Vital Signs Temp 97.9 F 03/15/20 08:00 Pulse 112 H 03/15/20 09:00 Resp 30 H 03/15/20 09:00 BP 111/88 03/15/20 09:00 Pulse Ox 96 03/15/20 08:30 Intake & Output 03/14/20 03/15/20 03/15/20 18:59 06:59 18:59 Intake Total 900 2515 959 Output Total 115 545 200 Balance 785 1970 759 Weight 98.883 kg 95.7 kg Intake: IV 750 1875 375 Dextrose 5% in Water 1, 750 1375 375 000 ml @ 125 mls/hr IV . Q9H12M THEA with Sodium Bicarb (1 Meq/ml) 150 ml Rx#:[id number] Sodium Chloride 0.9% 500 500 ml 500 ml @ 999 mls/hr IV .Q31M ONE Rx#:[id number] Intake, IV Titration 334 Amount Vancomycin 1,750 mg In 334 Sodium Chloride 0.9% 500 ml 500 ml @ 167 mls/hr IVPB ONCE ONE Rx#: [id number] Oral 150 640 250 Output: Urine 115 545 200 Other: Voiding Method Indwelling Catheter Indwelling Catheter Indwelling Catheter - Labs CBC & Chem 7: 03/15/20 06:00 03/15/20 04:05 Labs: Abnormal Lab Results - Last 24 Hours (Table) 03/14/20 03/14/20 03/14/20 Range/Units 12:29 12:40 15:28 WBC (3.8-10.6) k/uL RDW (11.5-15.5) % Neutrophils # (1.3-7.7) k/uL Monocytes # (0-1.0) k/uL Carbon Dioxide (22-30) mmol/L BUN (9-20) mg/dL Creatinine (0.66-1.25) mg/dL Glucose (74-99) mg/dL POC Glucose (mg/dL) 112 H (75-99) mg/dL Plasma Lactic Acid Derrek 2.3 H* 2.4 H* (0.7-2.0) mmol/L Calcium (8.4-10.2) mg/dL Phosphorus (2.5-4.5) mg/dL Creatine Kinase (55-170) U/L Albumin (3.5-5.0) g/dL Urine Protein (Negative) Urine Blood (Negative) Ur Leukocyte Esterase (Negative) Urine RBC (0-5) /hpf Urine WBC (0-5) /hpf Urine WBC Clumps (None) /hpf Urine Bacteria (None) /hpf Urine Mucus (None) /hpf Urine Yeast (Budding) (None) /hpf 03/14/20 03/14/20 03/14/20 Range/Units 16:57 18:36 18:43 WBC (3.8-10.6) k/uL RDW (11.5-15.5) % Neutrophils # (1.3-7.7) k/uL Monocytes # (0-1.0) k/uL Carbon Dioxide 11 L (22-30) mmol/L BUN 122 H* (9-20) mg/dL Creatinine 7.33 H* (0.66-1.25) mg/dL Glucose 160 H (74-99) mg/dL POC Glucose (mg/dL) 139 H (75-99) mg/dL Plasma Lactic Acid Derrek (0.7-2.0) mmol/L Calcium 8.3 L (8.4-10.2) mg/dL Phosphorus (2.5-4.5) mg/dL Creatine Kinase (55-170) U/L Albumin (3.5-5.0) g/dL Urine Protein 2+ H (Negative) Urine Blood Large H (Negative) Ur Leukocyte Esterase Large H (Negative) Urine RBC >182 H (0-5) /hpf Urine WBC >182 H (0-5) /hpf Urine WBC Clumps Few H (None) /hpf Urine Bacteria Moderate H (None) /hpf Urine Mucus Rare H (None) /hpf Urine Yeast (Budding) Few H (None) /hpf 03/14/20 03/14/20 03/14/20 Range/Units 18:43 18:43 20:39 WBC (3.8-10.6) k/uL RDW (11.5-15.5) % Neutrophils # (1.3-7.7) k/uL Monocytes # (0-1.0) k/uL Carbon Dioxide (22-30) mmol/L BUN (9-20) mg/dL Creatinine (0.66-1.25) mg/dL Glucose (74-99) mg/dL POC Glucose (mg/dL) 143 H (75-99) mg/dL Plasma Lactic Acid Derrek 3.2 H* (0.7-2.0) mmol/L Calcium (8.4-10.2) mg/dL Phosphorus (2.5-4.5) mg/dL Creatine Kinase 30 L (55-170) U/L Albumin (3.5-5.0) g/dL Urine Protein (Negative) Urine Blood (Negative) Ur Leukocyte Esterase (Negative) Urine RBC (0-5) /hpf Urine WBC (0-5) /hpf Urine WBC Clumps (None) /hpf Urine Bacteria (None) /hpf Urine Mucus (None) /hpf Urine Yeast (Budding) (None) /hpf 03/14/20 03/15/20 03/15/20 Range/Units 22:20 01:16 04:05 WBC (3.8-10.6) k/uL RDW (11.5-15.5) % Neutrophils # (1.3-7.7) k/uL Monocytes # (0-1.0) k/uL Carbon Dioxide 13 L (22-30) mmol/L BUN 121 H* (9-20) mg/dL Creatinine 6.22 H (0.66-1.25) mg/dL Glucose 104 H (74-99) mg/dL POC Glucose (mg/dL) (75-99) mg/dL Plasma Lactic Acid Derrek 3.0 H* 2.9 H* (0.7-2.0) mmol/L Calcium 7.9 L (8.4-10.2) mg/dL Phosphorus 5.3 H (2.5-4.5) mg/dL Creatine Kinase (55-170) U/L Albumin 3.0 L (3.5-5.0) g/dL Urine Protein (Negative) Urine Blood (Negative) Ur Leukocyte Esterase (Negative) Urine RBC (0-5) /hpf Urine WBC (0-5) /hpf Urine WBC Clumps (None) /hpf Urine Bacteria (None) /hpf Urine Mucus (None) /hpf Urine Yeast (Budding) (None) /hpf 03/15/20 03/15/20 03/15/20 Range/Units 04:05 06:00 06:56 WBC 16.4 H (3.8-10.6) k/uL RDW 15.7 H (11.5-15.5) % Neutrophils # 12.2 H (1.3-7.7) k/uL Monocytes # 1.2 H (0-1.0) k/uL Carbon Dioxide (22-30) mmol/L BUN (9-20) mg/dL Creatinine (0.66-1.25) mg/dL Glucose (74-99) mg/dL POC Glucose (mg/dL) (75-99) mg/dL Plasma Lactic Acid Derrek 2.9 H* 2.6 H* (0.7-2.0) mmol/L Calcium (8.4-10.2) mg/dL Phosphorus (2.5-4.5) mg/dL Creatine Kinase (55-170) U/L Albumin (3.5-5.0) g/dL Urine Protein (Negative) Urine Blood (Negative) Ur Leukocyte Esterase (Negative) Urine RBC (0-5) /hpf Urine WBC (0-5) /hpf Urine WBC Clumps (None) /hpf Urine Bacteria (None) /hpf Urine Mucus (None) /hpf Urine Yeast (Budding) (None) /hpf Microbiology - Last 24 Hours (Table) 03/14/20 09:42 Blood Culture - Final Blood 03/14/20 18:36 Urine Culture - Preliminary Urine,Voided Assessment and Plan Plan: Assessment: 1. Acute kidney injury secondary to ATN secondary to hypotension. Creatinine 7.8 on admission and is down to 6.2 to today. Creatinine in October 2019 was near 1.3. 2. Metabolic acidosis secondary to acute kidney injury, metformin and lactic acidosis. 3. Hypotension. Improved with IV fluids. 4. A. fib with RVR maintained on Lopressor. Stable. 5. Insulin-dependent diabetes mellitus. 6. Chronic kidney disease. Baseline creatinine near 1.3. Etiology is solitary right kidney. 7. Mild hyperphosphatemia secondary to acute kidney injury. Expect improvement with improving renal function. Plan: Maintain bicarb drip at 125 mL an hour. Follow-up cultures. Avoid nephrotoxins. Continue to monitor renal function and urine output.
--- NOTE | 2020-03-15 10:57 | P.PN ---
Subjective Progress Note Date: 03/15/20 History of Present Illness This is an 84-year-old male previously a patient of Dr. Peralta at [facility] and recently transitioned to Dr. Navarro with past medical history of c oronary artery disease status post CABG and stent 2 and aortic valve replacement, chronic persistent atrial fibrillation status post cardioversion,, hypertension, hyperlipidemia, diabetes mellitus type 2, Alzheimer dementia, neuro fibrosis, history of renal cancer status post left nephrectomy, melanoma. Patient had episode where [facility] with a low blood pressure of 60/40. Patient did not have any cough or shortness of breath. He has known history as above. Patient has been a no code and no transfer to the hospital but family decided to send him in the hospital for evaluation. EKG was atrial fibrillation at rate of 121. Blood work revealed WBC 18, hemoglobin 17.2, platelet count 350. Chloride 108, CO2 9, BUN 119, creatinine 7.8, blood sugar 147. Initial lactic acid 2.6. Mosqueda catheter was placed and patient had no urine output. Chest x-ray showsshows acute posttraumatic changes. Slight vascular prominence. Correlate for dev eloping volume overload. Patient was given 2 L of IV fluids, Rocephin and admitted to the intensive care unit. Consults were added for Dr. Hicks and Dr. Noriega. Family does not plan for hemodialysis. 03/15: Patient remains in the intensive care unit but has not required vasopressors. He states he does not have any appetite. In general he is feeling much better from yesterday and looks much improved. Last evening he started having urine output around 5 PM. Urine is dark. He is currently on Invanz and vancomycin. Urinalysis revealed leukoesterase large, RBCs greater than 182, to be PVCs greater than 182, bacteria moderate. Covid 19 not detected. Digoxin level 0.4. Repeat lab work reveals improved leukocytosis 16.4, hemoglobin stable at 15.4, platelet count 251. Some improvement of his renal function with BUN of 121 and creatinine 6.22. CO2 is 13. Lactic acid remains elevated at 3.2. Patient has been seen by nephrology. Patient has been maintained on bicarb drip Renal ultrasound revealed nonobstructing renal stone in the right kidney. Right renal cyst. Review of Systems Constitutional: No fever, no chills, no documented fever. No weight change. Reports weakness, reports fatigue reports lethargy. Reports poor appetite. EENT: No headache. Chronic vision changes, chronic hearing loss. No epistaxis. No sore throat. Lungs: No shortness of breath, cough, no sputum production. No wheezing. Cardiovascular: No chest pain, no lower extremity edema. No palpitations. No paroxysmal nocturnal dyspnea. No orthopnea. No lightheadedness or dizziness. No syncopal episodes. Abdominal: No abdominal pain. No nausea, vomiting. No diarrhea. No constipation. No bloody or tarry stools. Genitourinary: No dysuria, increased frequency, urgency. No urinary retention. Musculoskeletal: No myalgias. Reports muscle weakness, reports gait d ysfunction, no frequent falls. Integumentary: No wounds, no lesions. No rash or pruritus. Neurologic: No aphasia. No facial droop. Reports change in mentation. Psychiatric: No depression. No anxiety. No mood swings. Endocrine: No abnormal blood sugars. No weight change. Physical Examination Gen: This is an 84-year-old male. He is resting in ICU bed and ap pears to be comfortable at rest. HEENT: Head is atraumatic, normocephalic. Pupils equal, round. Sclerae is anicteric. NECK: Supple. No JVD. No lymphadenopathy. No thyromegaly. LUNGS: Clear to auscultation. No wheezes or rhonchi. No intercostal retractions. HEART: Irregularly irregular, systolic murmur. ABDOMEN: Soft. Bowel sounds are present. No masses. No tenderness. Mosqueda catheter draining dark urine. EXTREMITIES: No pedal edema. No calf tenderness. NEUROLOGICAL: Patient is awake, alert and oriented to person and place. Generalized weakness noted. Assessment and Plan 1. Acute kidney injury with severe metabolic acidosis and hypotension. Patient admitted into the intensive care unit. Consults with special delivery messenger and nephrology appreciated. Patient has not required vasopressors. Continue bicarb drip. 2. Acute kidney injury secondary to ATN, patient is oliguric. Mosqueda catheter will was placed. Monitor XIANG. Monitor renal function. Metformin, lisinopril on hold. 3. Chronic persistent atrial fibrillation presenting with RVR. Continue digoxin 125 g daily, Lopressor 50 mg twice daily, eliquis 2.5 mg twice daily. 4. Leukocytosis and SIRS with no focal area of infection. Patient is status post 1 dose of Rocephin. 5. History of coronary artery disease status post CABG and stent placement as well as aortic valve replacement. Continue aspirin 81 mg daily and Lopressor. 6. Diabetes mellitus type 2, insulin requiring. Levemir resumed at lower dose 20 units at bedtime, NovoLog scale before meals and at bedtime. 7. Alzheimer's dementia. Continue Namenda 7.5 mg daily. 8. Hypertension. Continue Lopressor. 9. Hyperlipidemia. Patient not on statin. 10. Neuro fibrosis, stable. 11. History of renal cancer status post nephrectomy with chronic kidney disease stage III. 12. COVID-19 infection not present. 13. Mild hyperphosphatemia secondary to acute kidney injury. CODE STATUS: No code Prognosis: Poor Discharge plan: Return to [facility] Impression and plan of care have been directed as dictated by the signing ana wright. Suzy Choi nurse practitioner acting as scribe for signing physician. Objective - Vital Signs Vital signs: Vital Signs Temp 97.9 F 03/15/20 04:00 Pulse 102 H 03/15/20 07:00 Resp 25 H 03/15/20 07:00 BP 87/55 03/15/20 07:00 Pulse Ox 99 03/15/20 07:00 Intake & Output 03/14/20 03/15/20 03/15/20 18:59 06:59 18:59 Intake Total 900 2515 567 Output Total 115 545 160 Balance 785 1970 407 Weight 98.883 kg 95.7 kg Intake: IV 750 1875 250 Dextrose 5% in Water 1, 750 1375 250 000 ml @ 125 mls/hr IV . Q9H12M THEA with Sodium Bicarb (1 Meq/ml) 150 ml Rx#:[id number] Sodium Chloride 0.9% 500 500 ml 500 ml @ 999 mls/hr IV .Q31M ONE Rx#:[id number] Intake, IV Titration 167 Amount Vancomycin 1,750 mg In 167 Sodium Chloride 0.9% 500 ml 500 ml @ 167 mls/hr IVPB ONCE ONE Rx#: [id number] Oral 150 640 150 Output: Urine 115 545 160 Other: Voiding Method Indwelling Catheter Indwelling Catheter Indwelling Catheter - Labs CBC & Chem 7: 03/15/20 06:00 03/15/20 04:05 Labs: Abnormal Lab Results - Last 24 Hours (Table) 03/14/20 03/14/20 03/14/20 Range/Units 08:35 08:35 09:38 WBC 18.0 H (3.8-10.6) k/uL Hct 54.4 H (39.0-53.0) % RDW 15.6 H (11.5-15.5) % Neutrophils # 14.0 H (1.3-7.7) k/uL Monocytes # 1.5 H (0-1.0) k/uL Chloride 108 H (98-107) mmol/L Carbon Dioxide 9 L* (22-30) mmol/L BUN 119 H* (9-20) mg/dL Creatinine 7.80 H* (0.66-1.25) mg/dL Glucose 147 H (74-99) mg/dL POC Glucose (mg/dL) (75-99) mg/dL Plasma Lactic Acid Derrek 2.6 H* (0.7-2.0) mmol/L Calcium (8.4-10.2) mg/dL Phosphorus (2.5-4.5) mg/dL AST 14 L (17-59) U/L Creatine Kinase (55-170) U/L Albumin (3.5-5.0) g/dL Urine Protein (Negative) Urine Blood (Negative) Ur Leukocyte Esterase (Negative) Urine RBC (0-5) /hpf Urine WBC (0-5) /hpf Urine WBC Clumps (None) /hpf Urine Bacteria (None) /hpf Urine Mucus (None) /hpf Urine Yeast (Budding) (None) /hpf 03/14/20 03/14/20 03/14/20 Range/Units 12:29 12:40 15:28 WBC (3.8-10.6) k/uL Hct (39.0-53.0) % RDW (11.5-15.5) % Neutrophils # (1.3-7.7) k/uL Monocytes # (0-1.0) k/uL Chloride (98-107) mmol/L Carbon Dioxide (22-30) mmol/L BUN (9-20) mg/dL Creatinine (0.66-1.25) mg/dL Glucose (74-99) mg/dL POC Glucose (mg/dL) 112 H (75-99) mg/dL Plasma Lactic Acid Derrek 2.3 H* 2.4 H* (0.7-2.0) mmol/L Calcium (8.4-10.2) mg/dL Phosphorus (2.5-4.5) mg/dL AST (17-59) U/L Creatine Kinase (55-170) U/L Albumin (3.5-5.0) g/dL Urine Protein (Negative) Urine Blood (Negative) Ur Leukocyte Esterase (Negative) Urine RBC (0-5) /hpf Urine WBC (0-5) /hpf Urine WBC Clumps (None) /hpf Urine Bacteria (None) /hpf Urine Mucus (None) /hpf Urine Yeast (Budding) (None) /hpf 03/14/20 03/14/20 03/14/20 Range/Units 16:57 18:36 18:43 WBC (3.8-10.6) k/uL Hct (39.0-53.0) % RDW (11.5-15.5) % Neutrophils # (1.3-7.7) k/uL Monocytes # (0-1.0) k/uL Chloride (98-107) mmol/L Carbon Dioxide 11 L (22-30) mmol/L BUN 122 H* (9-20) mg/dL Creatinine 7.33 H* (0.66-1.25) mg/dL Glucose 160 H (74-99) mg/dL POC Glucose (mg/dL) 139 H (75-99) mg/dL Plasma Lactic Acid Derrek (0.7-2.0) mmol/L Calcium 8.3 L (8.4-10.2) mg/dL Phosphorus (2.5-4.5) mg/dL AST (17-59) U/L Creatine Kinase (55-170) U/L Albumin (3.5-5.0) g/dL Urine Protein 2+ H (Negative) Urine Blood Large H (Negative) Ur Leukocyte Esterase Large H (Negative) Urine RBC >182 H (0-5) /hpf Urine WBC >182 H (0-5) /hpf Urine WBC Clumps Few H (None) /hpf Urine Bacteria Moderate H (None) /hpf Urine Mucus Rare H (None) /hpf Urine Yeast (Budding) Few H (None) /hpf 07/14/20 07/14/20 07/14/20 Range/Units 18:43 18:43 20:39 WBC (3.8-10.6) k/uL Hct (39.0-53.0) % RDW (11.5-15.5) % Neutrophils # (1.3-7.7) k/uL Monocytes # (0-1.0) k/uL Chloride (98-107) mmol/L Carbon Dioxide (22-30) mmol/L BUN (9-20) mg/dL Creatinine (0.66-1.25) mg/dL Glucose (74-99) mg/dL POC Glucose (mg/dL) 143 H (75-99) mg/dL Plasma Lactic Acid Derrek 3.2 H* (0.7-2.0) mmol/L Calcium (8.4-10.2) mg/dL Phosphorus (2.5-4.5) mg/dL AST (17-59) U/L Creatine Kinase 30 L (55-170) U/L Albumin (3.5-5.0) g/dL Urine Protein (Negative) Urine Blood (Negative) Ur Leukocyte Esterase (Negative) Urine RBC (0-5) /hpf Urine WBC (0-5) /hpf Urine WBC Clumps (None) /hpf Urine Bacteria (None) /hpf Urine Mucus (None) /hpf Urine Yeast (Budding) (None) /hpf 03/14/20 03/15/20 03/15/20 Range/Units 22:20 01:16 04:05 WBC (3.8-10.6) k/uL Hct (39.0-53.0) % RDW (11.5-15.5) % Neutrophils # (1.3-7.7) k/uL Monocytes # (0-1.0) k/uL Chloride (98-107) mmol/L Carbon Dioxide 13 L (22-30) mmol/L BUN 121 H* (9-20) mg/dL Creatinine 6.22 H (0.66-1.25) mg/dL Glucose 104 H (74-99) mg/dL POC Glucose (mg/dL) (75-99) mg/dL Plasma Lactic Acid Derrek 3.0 H* 2.9 H* (0.7-2.0) mmol/L Calcium 7.9 L (8.4-10.2) mg/dL Phosphorus 5.3 H (2.5-4.5) mg/dL AST (17-59) U/L Creatine Kinase (55-170) U/L Albumin 3.0 L (3.5-5.0) g/dL Urine Protein (Negative) Urine Blood (Negative) Ur Leukocyte Esterase (Negative) Urine RBC (0-5) /hpf Urine WBC (0-5) /hpf Urine WBC Clumps (None) /hpf Urine Bacteria (None) /hpf Urine Mucus (None) /hpf Urine Yeast (Budding) (None) /hpf 03/15/20 03/15/20 03/15/20 Range/Units 04:05 06:00 06:56 WBC 16.4 H (3.8-10.6) k/uL Hct (39.0-53.0) % RDW 15.7 H (11.5-15.5) % Neutrophils # 12.2 H (1.3-7.7) k/uL Monocytes # 1.2 H (0-1.0) k/uL Chloride (98-107) mmol/L Carbon Dioxide (22-30) mmol/L BUN (9-20) mg/dL Creatinine (0.66-1.25) mg/dL Glucose (74-99) mg/dL POC Glucose (mg/dL) (75-99) mg/dL Plasma Lactic Acid Derrek 2.9 H* 2.6 H* (0.7-2.0) mmol/L Calcium (8.4-10.2) mg/dL Phosphorus (2.5-4.5) mg/dL AST (17-59) U/L Creatine Kinase (55-170) U/L Albumin (3.5-5.0) g/dL Urine Protein (Negative) Urine Blood (Negative) Ur Leukocyte Esterase (Negative) Urine RBC (0-5) /hpf Urine WBC (0-5) /hpf Urine WBC Clumps (None) /hpf Urine Bacteria (None) /hpf Urine Mucus (None) /hpf Urine Yeast (Budding) (None) /hpf Microbiology - Last 24 Hours (Table) 03/14/20 09:42 Blood Culture - Final Blood 03/14/20 18:36 Urine Culture - Preliminary Urine,Voided
[2020-03-15 12:04] LABS: Glucose,Whole Blood 117 mg/dL (75-99)
--- NOTE | 2020-03-15 15:34 | P.PN ---
Subjective Progress Note Date: 03/15/20 84-year-old female patient got admitted to the intensive care unit because of an acute kidney injury. Note that the patient's renal function back in October 2019 was showing a creatinine of 1.3 and creatinine of 7.8, serum bicarb of 9, anion gap of 22, lactic acid level of 2.3, calcium level of 8.8, the patient apparently was feeling weak and she sustained a fall and she was brought into the hospital by EMS. At the time of arrival, she was hypotensive and the patient received a total of 2 L of IV fluids. The patient was not a reliable historian. She denied having any chest pain or shortness of breath. She denied having any nausea vomiting or diarrhea or abdominal pain. Mosqueda catheter was placed and she hasn't had significant urine output to return after Mosqueda negin ter insertion. She has known history of dementia, coronary artery disease, atrial fibrillation and chronic stage III kidney disease with a baseline creatinine of 1.35. She has had previous history of renal cell cancer and she has undergone a right nephrectomy. She has neurofibromatosis and history of melanoma and ears and the back that were resected. She is quite hard of hearing at this point in time. In terms of her heart disease, the patient has undergone a previous coronary artery bypass surgery and previous cardiac catheterization and stenting and a previous history of aortic valve replacement.. She has been maintained on an DANIELLE inhibitor. Also, sound of the kidneys was done and showed a nonobstructive renal stone in the right adrenal cyst on the left. Findings were similar to compared to the previous ultrasound from 2015. Currently, the patient is receiving IV fluids in the form of a bicarb infusions a rate of 125 mL an hour. On today's evaluation of 03/15/2020, the patient is being seen for a follow-up. The patient much more alert and awake compared to yesterday. He is still on D5 with 3 ampules of sodium bicarb at 150 mEq running at 125 mL an hour. There patient has already received 2 boluses of 0.5 L of IV fluids yesterday. He is producing urine output. His renal function is gradually improving and the creatinine is down to 6.22. Serum bicarb is up to 13 and anion gap is around 22. Lactic acid level is at 3.7. The patient's urine cultures showing gram- negative bacillus. Based on previous history of ESBL producing E. coli, I started this patient on IV Invanz. Also, the blood culture showing gram- positive cocci and the patient was given a dose of vancomycin yesterday. He is afebrile. White cell count today is at 16.4. No nausea. No vomiting. No diarrhea. No abdominal pain. The patient did not require any pressors. The nephrology is on the case. No other significant events otherwise. Objective - Vital Signs Vital signs: Vital Signs Temp 97.8 F 03/15/20 12:00 Pulse 110 H 03/15/20 15:00 Resp 18 03/15/20 15:00 BP 118/73 03/15/20 15:00 Pulse Ox 98 03/15/20 12:00 Intake & Output 03/14/20 03/15/20 03/15/20 18:59 06:59 18:59 Intake Total 900 2515 1909 Output Total 035 957 0135 Balance 785 1970 809 Weight 98.883 kg 95.7 kg Intake: IV 750 1875 1125 Dextrose 5% in Water 1, 750 1375 1125 000 ml @ 125 mls/hr IV . Q9H12M THEA with Sodium Bicarb (1 Meq/ml) 150 ml Rx#:[id number] Sodium Chloride 0.9% 500 500 ml 500 ml @ 999 mls/hr IV .Q31M ONE Rx#:[id number] Intake, IV Titration 384 Amount Ertapenem 0.5 gm In 50 Sodium Chloride 0.9% 50 ml @ 100 mls/hr IVPB DAILY THEA Rx#:[id number] Vancomycin 1,750 mg In 334 Sodium Chloride 0.9% 500 ml 500 ml @ 167 mls/hr IVPB ONCE ONE Rx#: [id number] Oral 150 640 400 Output: Urine 255 096 9906 Other: Voiding Method Indwelling Catheter Indwelling Catheter Indwelling Catheter - Exam 84-year-old female patient got admitted to the intensive care unit because of an acute kidney injury. Note that the patient's renal function back in October 2019 was showing a creatinine of 1.3 and creatinine of 7.8, serum bicarb of 9, anion gap of 22, lactic acid level of 2.3, calcium level of 8.8, the patient apparently was feeling weak and she sustained a fall and she was brought into the hospital by EMS. At the time of arrival, she was hypotensive and the patient received a total of 2 L of IV fluids. The patient was not a reliable historian. She denied having any chest pain or shortness of breath. She denied having any nausea vomiting or diarrhea or abdominal pain. Mosqueda catheter was placed and she hasn't had significant urine output to return after Mosqueda ca theter insertion. She has known history of dementia, coronary artery disease, atrial fibrillation and chronic stage III kidney disease with a baseline creatinine of 1.35. She has had previous history of renal cell cancer and she has undergone a right nephrectomy. She has neurofibromatosis and history of melanoma and ears and the back that were resected. She is quite hard of hearing at this point in time. In terms of her heart disease, the patient has undergone a previous coronary artery bypass surgery and previous cardiac catheterization and stenting and a previous history of aortic valve replacement.. She has been maintained on an DANIELLE inhibitor. Also, sound of the kidneys was done and showed a nonobstructive renal stone in the right adrenal cyst on the left. Findings were similar to compared to the previous ultrasound from 2014. Currently, the patient is receiving IV fluids in the form of a bicarb infusions a rate of 125 mL an hour. - Labs CBC & Chem 7: 03/15/20 06:00 03/15/20 04:05 Labs: Abnormal Lab Results - Last 24 Hours (Table) 03/14/20 03/14/20 03/14/20 Range/Units 15:28 16:57 18:36 WBC (3.8-10.6) k/uL RDW (11.5-15.5) % Neutrophils # (1.3-7.7) k/uL Monocytes # (0-1.0) k/uL Carbon Dioxide (22-30) mmol/L BUN (9-20) mg/dL Creatinine (0.66-1.25) mg/dL Glucose (74-99) mg/dL POC Glucose (mg/dL) 139 H (75-99) mg/dL Plasma Lactic Acid Derrek 2.4 H* (0.7-2.0) mmol/L Calcium (8.4-10.2) mg/dL Phosphorus (2.5-4.5) mg/dL Creatine Kinase (55-170) U/L Albumin (3.5-5.0) g/dL Urine Protein 2+ H (Negative) Urine Blood Large H (Negative) Ur Leukocyte Esterase Large H (Negative) Urine RBC >182 H (0-5) /hpf Urine WBC >182 H (0-5) /hpf Urine WBC Clumps Few H (None) /hpf Urine Bacteria Moderate H (None) /hpf Urine Mucus Rare H (None) /hpf Urine Yeast (Budding) Few H (None) /hpf 03/14/20 03/14/20 03/14/20 Range/Units 18:43 18:43 18:43 WBC (3.8-10.6) k/uL RDW (11.5-15.5) % Neutrophils # (1.3-7.7) k/uL Monocytes # (0-1.0) k/uL Carbon Dioxide 11 L (22-30) mmol/L BUN 122 H* (9-20) mg/dL Creatinine 7.33 H* (0.66-1.25) mg/dL Glucose 160 H (74-99) mg/dL POC Glucose (mg/dL) (75-99) mg/dL Plasma Lactic Acid Derrek 3.2 H* (0.7-2.0) mmol/L Calcium 8.3 L (8.4-10.2) mg/dL Phosphorus (2.5-4.5) mg/dL Creatine Kinase 30 L (55-170) U/L Albumin (3.5-5.0) g/dL Urine Protein (Negative) Urine Blood (Negative) Ur Leukocyte Esterase (Negative) Urine RBC (0-5) /hpf Urine WBC (0-5) /hpf Urine WBC Clumps (None) /hpf Urine Bacteria (None) /hpf Urine Mucus (None) /hpf Urine Yeast (Budding) (None) /hpf 03/14/20 03/14/20 03/15/20 Range/Units 20:39 22:20 01:16 WBC (3.8-10.6) k/uL RDW (11.5-15.5) % Neutrophils # (1.3-7.7) k/uL Monocytes # (0-1.0) k/uL Carbon Dioxide (22-30) mmol/L BUN (9-20) mg/dL Creatinine (0.66-1.25) mg/dL Glucose (74-99) mg/dL POC Glucose (mg/dL) 143 H (75-99) mg/dL Plasma Lactic Acid Derrek 3.0 H* 2.9 H* (0.7-2.0) mmol/L Calcium (8.4-10.2) mg/dL Phosphorus (2.5-4.5) mg/dL Creatine Kinase (55-170) U/L Albumin (3.5-5.0) g/dL Urine Protein (Negative) Urine Blood (Negative) Ur Leukocyte Esterase (Negative) Urine RBC (0-5) /hpf Urine WBC (0-5) /hpf Urine WBC Clumps (None) /hpf Urine Bacteria (None) /hpf Urine Mucus (None) /hpf Urine Yeast (Budding) (None) /hpf 03/15/20 03/15/20 03/15/20 Range/Units 04:05 04:05 06:00 WBC 16.4 H (3.8-10.6) k/uL RDW 15.7 H (11.5-15.5) % Neutrophils # 12.2 H (1.3-7.7) k/uL Monocytes # 1.2 H (0-1.0) k/uL Carbon Dioxide 13 L (22-30) mmol/L BUN 121 H* (9-20) mg/dL Creatinine 6.22 H (0.66-1.25) mg/dL Glucose 104 H (74-99) mg/dL POC Glucose (mg/dL) (75-99) mg/dL Plasma Lactic Acid Derrek 2.9 H* (0.7-2.0) mmol/L Calcium 7.9 L (8.4-10.2) mg/dL Phosphorus 5.3 H (2.5-4.5) mg/dL Creatine Kinase (55-170) U/L Albumin 3.0 L (3.5-5.0) g/dL Urine Protein (Negative) Urine Blood (Negative) Ur Leukocyte Esterase (Negative) Urine RBC (0-5) /hpf Urine WBC (0-5) /hpf Urine WBC Clumps (None) /hpf Urine Bacteria (None) /hpf Urine Mucus (None) /hpf Urine Yeast (Budding) (None) /hpf 03/15/20 03/15/20 03/15/20 Range/Units 06:56 09:45 12:03 WBC (3.8-10.6) k/uL RDW (11.5-15.5) % Neutrophils # (1.3-7.7) k/uL Monocytes # (0-1.0) k/uL Carbon Dioxide (22-30) mmol/L BUN (9-20) mg/dL Creatinine (0.66-1.25) mg/dL Glucose (74-99) mg/dL POC Glucose (mg/dL) 117 H (75-99) mg/dL Plasma Lactic Acid Derrek 2.6 H* 3.2 H* (0.7-2.0) mmol/L Calcium (8.4-10.2) mg/dL Phosphorus (2.5-4.5) mg/dL Creatine Kinase (55-170) U/L Albumin (3.5-5.0) g/dL Urine Protein (Negative) Urine Blood (Negative) Ur Leukocyte Esterase (Negative) Urine RBC (0-5) /hpf Urine WBC (0-5) /hpf Urine WBC Clumps (None) /hpf Urine Bacteria (None) /hpf Urine Mucus (None) /hpf Urine Yeast (Budding) (None) /hpf 03/15/20 Range/Units 12:56 WBC (3.8-10.6) k/uL RDW (11.5-15.5) % Neutrophils # (1.3-7.7) k/uL Monocytes # (0-1.0) k/uL Carbon Dioxide (22-30) mmol/L BUN (9-20) mg/dL Creatinine (0.66-1.25) mg/dL Glucose (74-99) mg/dL POC Glucose (mg/dL) (75-99) mg/dL Plasma Lactic Acid Derrek 3.7 H* (0.7-2.0) mmol/L Calcium (8.4-10.2) mg/dL Phosphorus (2.5-4.5) mg/dL Creatine Kinase (55-170) U/L Albumin (3.5-5.0) g/dL Urine Protein (Negative) Urine Blood (Negative) Ur Leukocyte Esterase (Negative) Urine RBC (0-5) /hpf Urine WBC (0-5) /hpf Urine WBC Clumps (None) /hpf Urine Bacteria (None) /hpf Urine Mucus (None) /hpf Urine Yeast (Budding) (None) /hpf Microbiology - Last 24 Hours (Table) 03/14/20 09:42 Blood Culture Gram Stain - Preliminary Blood Blood Culture - Preliminary Streptococcus species 03/14/20 09:42 Blood Culture - Final Blood 03/14/20 18:36 Urine Culture - Preliminary Urine,Voided Assessment and Plan Plan: 1 acute kidney injury on top of a mild chronic renal insufficiency as the patient has chronic stage II 55 kidney disease with a baseline creatinine of 1.35 and a GFR of 55 from October 2019. The patient continues to be on a bicarb infusion. Urine output is gradually improving and the serum bicarb remains low as the patient is being treated with bicarb infusion for now what 150 mg of sodium bicarbonate in D5 water at the rate of 150 mL an hour. Urine output is improved significantly. 2 severe underlying metabolic acidosis secondary to above. There may be some contribution from metformin also. The metabolic acidosis improving. 3 hypovolemic hypotension improving with IV fluids, improving and the patient is normotensive for now and the patient has not required any pressors 4 coronary artery disease with previous bypass surgery and previous coronary stenting and previous aortic valve replacement 5 chronic atrial fibrillation with rapid ventricular response at time of admission secondary to above and the patient is demented on Eliquis on outpatient basis as a long-term anticoagulants. 6 diabetes mellitus maintenance on outpatient basis. 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 coli infection 17. Positive cocci in the blood Plan The patient was given a dose of IV vancomycin pending culture results Start the patient IV Invanz Continue the bicarb infusion and monitor the urine output Given another liter of IV fluids Monitor electrolytes Monitor renal function Ultrasound the kidneys noted Nephrology FU No signs of any fluid overload We'll continue to follow
[2020-03-15 17:06] LABS: Glucose,Whole Blood 191 mg/dL (75-99)
[2020-03-15 21:12] LABS: Glucose,Whole Blood 251 mg/dL (75-99)
[2020-03-15] MEDS: INSULIN DETEMIR (LEVEMIR) 100 UNIT/ML SYR SQ SCH (21:59)
[2020-03-16] MEDS ORDERED: DEXTROSE 5% IN WATER 100 ML with AMIODARONE 150 MG IV ONE (03:58)
[2020-03-16] MEDS ORDERED: AMIODARONE 360 MG in DEXTROSE 5% IN WATER 200 ML IV ONE ×2 (03:58)
[2020-03-16] MEDS: NOREPINEPHRINE 4 MG in SODIUM CHLORIDE 0.9% 250 ML IV SCH (04:49)
[2020-03-16] MEDS: DEXTROSE 5% IN WATER 1,000 ML with SODIUM BICARB (1 MEQ/ML) 150 ML IV SCH (05:13)
[2020-03-16 06:48] LABS: Calcium 7.6 mg/dL (8.4-10.2); Potassium 2.9 mmol/L (3.5-5.1)
[2020-03-16 07:06] LABS: Glucose,Whole Blood 132 mg/dL (75-99)
[2020-03-16] MEDS: INSULIN ASPART (NovoLOG) 100 UNIT/ML VIAL SQ SCH ×4 (07:06→20:43)
[2020-03-16] MEDS: ASPIRIN 81 MG PO SCH (07:53)
[2020-03-16] MEDS: METOPROLOL TARTRATE 50 MG TAB PO SCH ×3 (07:53→20:50)
[2020-03-16] MEDS: LACTOBACILLUS ACIDOPH & BULGAR 1 EACH PACKET PO SCH (07:53)
[2020-03-16] MEDS: RIVASTIGMINE 4.6MG/24HR PATCH TRANSDERM SCH (07:53)
[2020-03-16] MEDS: VENLAFAXINE HCL ER 75 MG CAP PO SCH (07:54)
[2020-03-16] MEDS: MEMANTINE 5 MG TAB PO SCH (07:54)
[2020-03-16] MEDS: ERTAPENEM 0.5 GM in SODIUM CHLORIDE 0.9% 50 ML IVPB SCH (07:54)
[2020-03-16] MEDS ORDERED: Potassium Replacement Protocol 1 EACH MISC MISCELLANE PRN (08:04)
[2020-03-16] MEDS: POTASSIUM CHLORIDE 10 MEQ in WATER FOR INJECTION 1 100ML.BAG IVPB SCH ×6 (09:13→16:39)
[2020-03-16] MEDS: SODIUM CHLORIDE 0.9% 1,000 ML IV SCH ×2 (09:13→17:02)
[2020-03-16] MEDS: DIGOXIN 125 MCG TAB PO SCH (09:14)
--- NOTE | 2020-03-16 09:40 | P.PN ---
Subjective Patient is seen in follow-up for acute kidney injury. Renal function improving. Nonoliguric. Maintained on bicarb drip. Bicarb level 23 today. Awake but not a reliable historian. No vomiting or diarrhea. Blood pressure stable. Not on vasopressors. Vital signs are stable. General: The patient appeared well nourished and normally developed. HEENT: Head exam is unremarkable. Neck is without jugular venous distension. LUNGS: Lungs are clear to auscultation and percussion. Breath sounds decreased. HEART: Regular rate and rhythm. ABDOMEN: Soft, nontender. EXTREMITITES: No clubbing, cyanosis, or edema. Objective - Vital Signs Vital signs: Vital Signs Temp 98.6 F 03/16/20 04:00 Pulse 140 H 03/16/20 08:00 Resp 16 03/16/20 08:00 BP 109/73 03/16/20 08:00 Pulse Ox 97 03/16/20 08:00 Intake & Output 03/15/20 03/16/20 03/16/20 18:59 06:59 18:59 Intake Total 2284 1500 250 Output Total 1400 1345 215 Balance 884 155 35 Weight 95 kg Intake: IV 1500 1500 250 Dextrose 5% in Water 1, 1500 1500 250 000 ml @ 125 mls/hr IV . Q9H12M THEA with Sodium Bicarb (1 Meq/ml) 150 ml Rx#:[id number] Intake, IV Titration 384 Amount Ertapenem 0.5 gm In 50 Sodium Chloride 0.9% 50 ml @ 100 mls/hr IVPB DAILY THEA Rx#:[id number] Vancomycin 1,750 mg In 334 Sodium Chloride 0.9% 500 ml 500 ml @ 167 mls/hr IVPB ONCE ONE Rx#: [id number] Oral 400 Output: Urine 1400 1345 215 Other: Voiding Method Indwelling Catheter Indwelling Catheter - Labs CBC & Chem 7: 03/15/20 06:00 03/16/20 05:49 Labs: Abnormal Lab Results - Last 24 Hours (Table) 03/15/20 03/15/20 03/15/20 Range/Units 09:45 12:03 12:56 Potassium (3.5-5.1) mmol/L BUN (9-20) mg/dL Creatinine (0.66-1.25) mg/dL Glucose (74-99) mg/dL POC Glucose (mg/dL) 117 H (75-99) mg/dL Plasma Lactic Acid Derrek 3.2 H* 3.7 H* (0.7-2.0) mmol/L Calcium (8.4-10.2) mg/dL 03/15/20 03/15/20 03/16/20 Range/Units 17:04 21:11 05:49 Potassium 2.9 L (3.5-5.1) mmol/L BUN 101 H* (9-20) mg/dL Creatinine 3.17 H (0.66-1.25) mg/dL Glucose 126 H (74-99) mg/dL POC Glucose (mg/dL) 191 H 251 H (75-99) mg/dL Plasma Lactic Acid Derrek (0.7-2.0) mmol/L Calcium 7.6 L (8.4-10.2) mg/dL 03/16/20 Range/Units 07:05 Potassium (3.5-5.1) mmol/L BUN (9-20) mg/dL Creatinine (0.66-1.25) mg/dL Glucose (74-99) mg/dL POC Glucose (mg/dL) 132 H (75-99) mg/dL Plasma Lactic Acid Derrek (0.7-2.0) mmol/L Calcium (8.4-10.2) mg/dL Microbiology - Last 24 Hours (Table) 03/14/20 18:36 Urine Culture - Preliminary Urine,Voided Gram Neg Bacilli 03/14/20 09:42 Blood Culture Gram Stain - Preliminary Blood Blood Culture - Preliminary Streptococcus species Assessment and Plan Plan: Assessment: 1. Acute kidney injury secondary to ATN secondary to hypotension. Creatinine 7.8 on admission and is down to 3.17 today. Creatinine in October 2019 was near 1.3. 2. Metabolic acidosis secondary to acute kidney injury, metformin and lactic acidosis. Improved. 3. Hypotension secondary to sepsis. Improved with IV fluids. 4. A. fib with RVR maintained on Lopressor. Stable. 5. Insulin-dependent diabetes mellitus. 6. Chronic kidney disease. Baseline creatinine near 1.3. Etiology is solitary right kidney. 7. Mild hyperphosphatemia secondary to acute kidney injury. Expect improvement with improving renal function. 8. Severe sepsis secondary to strep bacteremia. Urine culture positive for gram-negative bacilli. On IV abx. 9. Hypokalemia secondary to intracellular Shifting from IV bicarb. Plan: Discontinue bicarb drip and start normal saline at 75 mL an hour. Follow-up cultures. Avoid nephrotoxins. Continue to monitor renal function and urine output. Potassium being replaced. Check magnesium level.
[2020-03-16] MEDS ORDERED: AMIODARONE 300 MG in DEXTROSE 5% IN WATER 250 ML IV SCH ×2 (09:59)
[2020-03-16 11:03] LABS: Basophils # (A) 0.1 k/uL (0-0.2); Basophils % (A) 1 %; Eosinophils # (A) 0.7 k/uL (0-0.7); Eosinophils % (A) 6 %; HCT 45.4 % (39.0-53.0); HGB 15.1 gm/dL (13.0-17.5); Lymphocytes # (A) 1.2 k/uL (1.0-4.8); Lymphocytes % (A) 9 %; MCH 30.3 pg (25.0-35.0); MCHC 33.4 g/dL (31.0-37.0); MCV 90.7 fL (80.0-100.0); Mean Platelet Volume 12.4; Monocytes # (A) 1.2 k/uL (0-1.0); Monocytes % (A) 9 %; Neutrophils # (A) 9.7 k/uL (1.3-7.7); Neutrophils % (A) 73 %; Platelet Count 243 k/uL (150-450); RDW 15.5 % (11.5-15.5); WBC 13.3 k/uL (3.8-10.6)
[2020-03-16] MEDS ORDERED: Magnesium Replacement Protocol 1 EACH MISC MISCELLANE PRN (11:11)
[2020-03-16] MEDS: MAGNESIUM SULFATE-D5W PMX 1 GM in DEXTROSE/WATER 1 100ML.BAG IVPB SCH ×2 (11:24→12:58)
[2020-03-16 11:47] LABS: Large Platelets Present
--- NOTE | 2020-03-16 11:47 | ECHOF ---
Referral Reason:afib, RVR MEASUREMENTS -------- HEIGHT: 188.0 cm WEIGHT: 94.8 kg BP: RVIDd: 3.5 cm (< 3.3) IVSd: 1.4 cm (0.6 - 1.1) LVIDd: 3.6 cm (3.9 - 5.3) LVPWd: 1.6 cm (0.6 - 1.1) IVSs: 1.6 cm LVIDs: 3.6 cm LVPWs: 1.5 cm LA Diam: 5.2 cm (2.7 - 3.8) Ao Diam: 3.7 cm (2.0 - 3.7) AV Cusp: 1.1 cm (1.5 - 2.6) MV EXCURSION: 25.141 mm (> 18.000) MV EF SLOPE: 134 mm/s (70 - 150) EPSS: 0.1 cm AV maxP.25 mmHg AV meanP.33 mmHg RAP: 5.00 mmHg RVSP: 34.88 mmHg FINDINGS -------- Atrial fibrillation. This was a techncally difficult study with suboptimal views, , Lumason utilized for enhancement of im ages. The left ventricular size is normal. There is mild concentric left ventricular hypertrophy. Overa ll left ventricular systolic function is low-normal with, an EF between 50 - 55 %. The right ventricle is mildly enlarged. The left atrium is markedly dilated. The right atrial size is normal. 5.0mg OF Lumason UTLIZED: 2 OR MORE WALL SEGMENTS NOT VISUALIZED. There is mild aortic valve sclerosis. There is mild aortic stenosis present. Peak/mean gradient a cross the Aortic Valve is 23.25mmHg / 14.33mmHg. Mild mitral annular calcification present. Mild mitral regurgitation is present. Mild tricuspid regurgitation present. There is no evidence of pulmonary hypertension. Trace/mild (physiologic) pulmonic regurgitation. The aortic root size is normal. There is a small, generalized pericardial effusion present. CONCLUSIONS -------- 1. This was a techncally difficult study with suboptimal views, , Lumason utilized for enhancement of images. 2. There is mild concentric left ventricular hypertrophy. 3. Overall left ventricular systolic function is low-normal with, an EF between 50 - 55 %. 4. The right ventricle is mildly enlarged. 5. The left atrium is markedly dilated. 6. 5.0mg OF Lumason UTLIZED: 2 OR MORE WALL SEGMENTS NOT VISUALIZED. 7. There is mild aortic valve sclerosis. 8. There is mild aortic stenosis present. 9. Peak/mean gradient across the Aortic Valve is 23.25mmHg / 14.33mmHg. 10. Mild mitral annular calcification present. 11. Mild mitral regurgitation is present. 12. Mild tricuspid regurgitation present. 13. Trace/mild (physiologic) pulmonic regurgitation. 14. There is a small, generalized pericardial effusion present. SCHOOL COUNSELOR: Mimi Gimenez RDCS
[2020-03-16 11:48] LABS: Toxic Granulation Present
[2020-03-16 11:53] LABS: Glucose,Whole Blood 131 mg/dL (75-99)
[2020-03-16] MEDS: VANCOMYCIN IV PER PHARMACY 1 EACH MISC MISCELLANE SCH (12:59)
--- NOTE | 2020-03-16 13:06 | P.PN ---
Subjective Progress Note Date: 03/16/20 84-year-old female patient got admitted to the intensive care unit because of an acute kidney injury. Note that the patient's renal function back in October 2019 was showing a creatinine of 1.3 and creatinine of 7.8, serum bicarb of 9, anion gap of 22, lactic acid level of 2.3, calcium level of 8.8, the patient apparently was feeling weak and she sustained a fall and she was brought into the hospital by EMS. At the time of arrival, she was hypotensive and the patient received a total of 2 L of IV fluids. The patient was not a reliable historian. She denied having any chest pain or shortness of breath. She denied having any nausea vomiting or diarrhea or abdominal pain. Mosqueda catheter was placed and she hasn't had significant urine output to return after Mosqueda negin ter insertion. She has known history of dementia, coronary artery disease, atrial fibrillation and chronic stage III kidney disease with a baseline creatinine of 1.35. She has had previous history of renal cell cancer and she has undergone a right nephrectomy. She has neurofibromatosis and history of melanoma and ears and the back that were resected. She is quite hard of hearing at this point in time. In terms of her heart disease, the patient has undergone a previous coronary artery bypass surgery and previous cardiac catheterization and stenting and a previous history of aortic valve replacement.. She has been maintained on an DANIELLE inhibitor. Also, sound of the kidneys was done and showed a nonobstructive renal stone in the right adrenal cyst on the left. Findings were similar to compared to the previous ultrasound from 2015. Currently, the patient is receiving IV fluids in the form of a bicarb infusions a rate of 125 mL an hour. On today's evaluation of 03/15/2020, the patient is being seen for a follow-up. The patient much more alert and awake compared to yesterday. He is still on D5 with 3 ampules of sodium bicarb at 150 mEq running at 125 mL an hour. There patient has already received 2 boluses of 0.5 L of IV fluids yesterday. He is producing urine output. His renal function is gradually improving and the creatinine is down to 6.22. Serum bicarb is up to 13 and anion gap is around 22. Lactic acid level is at 3.7. The patient's urine cultures showing gram- negative bacillus. Based on previous history of ESBL producing E. coli, I started this patient on IV Invanz. Also, the blood culture showing gram- positive cocci and the patient was given a dose of vancomycin yesterday. He is afebrile. White cell count today is at 16.4. No nausea. No vomiting. No diarrhea. No abdominal pain. The patient did not require any pressors. The nephrology is on the case. No other significant events otherwise. On 03/16/2020, the patient is being seen for a follow-up. The patient is awake and alert and not having any respiratory difficulties. The patient was receiving bicarb infusion with 150 mg of sodium bicarb running at 150 mL an hour. Serum bicarb is normalized up to 23. The patient's meanwhile is showing improvement in renal function and creatinine is down to 3.0. He has adequate urine output. No signs of any fluid overload. He is in atrial fibrillation. At times is having occasional rapid ventricular response. He is currently on metoprolol. As for the blood cultures, it came back positive for strep species and unit cultures positive for gram-negative bacillus. The patient IV Invanz as an empiric antibiotic coverage. The patient on Levemir insulin 20 units for blood sugar control in addition to sinus care coverage. No other significant issues for now. The first on the case. No fever. No chills. Some liquidy loose diarrhea which recovered and the patient had only 1 episode. No pressors for now. Objective - Vital Signs Vital signs: Vital Signs Temp 98.6 F 03/16/20 04:00 Pulse 140 H 03/16/20 08:00 Resp 16 03/16/20 08:00 BP 109/73 03/16/20 08:00 Pulse Ox 97 03/16/20 08:00 Intake & Output 03/15/20 03/16/20 03/16/20 18:59 06:59 18:59 Intake Total 2284 1500 250 Output Total 1400 1345 215 Balance 884 155 35 Weight 95 kg Intake: IV 1500 1500 250 Dextrose 5% in Water 1, 1500 1500 250 000 ml @ 125 mls/hr IV . Q9H12M THEA with Sodium Bicarb (1 Meq/ml) 150 ml Rx#:[id number] Intake, IV Titration 384 Amount Ertapenem 0.5 gm In 50 Sodium Chloride 0.9% 50 ml @ 100 mls/hr IVPB DAILY THEA Rx#:[id number] Vancomycin 1,750 mg In 334 Sodium Chloride 0.9% 500 ml 500 ml @ 167 mls/hr IVPB ONCE ONE Rx#: [id number] Oral 400 Output: Urine 1400 1345 215 Other: Voiding Method Indwelling Catheter Indwelling Catheter Indwelling Catheter - Exam Gen. appearance she is calm and comfortable likely distress and she is pleasantly confused. The patient has extensive neurofibromatosis skin lesions scattered throughout the body Head exam was generally normal. There was no scleral icterus or corneal arcus. Mucous membranes are moist on today's evaluation. Neck was supple and without jugular venous distension, thyromegaly, or carotid bruits. Carotids were easily palpable bilaterally. There was no adenopathy. Mucous membranes are dry and the patient has no JVDs. Lungs were clear to auscultation and percussion, and with normal diaphragmatic excursion. No wheezes or rales were noted. Heart sounds are irregular consistent with atrial fibrillation. There is a chronic systolic ejection murmur grade 2/6 heard over the apex. This is radiating to the neck. No heave or any thrill. The thoracotomy scar over the anterior chest area is dry clean and intact Abdominal exam revealed normal bowel sounds. The abdomen was soft, non-tender, and without masses, organomegaly, or appreciable enlargement of the abdominal aorta. Examination of the extremities revealed easily palpable radial, femoral and pedal pulses. There was no cyanosis, clubbing or edema. Examination of the skin revealed no evidence of significant rashes, suspicious appearing nevi or other concerning lesions. Neurologically the patient is awake and alert, and there is global weakness without any focal neurological deficits. No agitation. No significant confusion on today's evaluation. - Labs CBC & Chem 7: 03/16/20 05:48 03/16/20 05:49 Labs: Abnormal Lab Results - Last 24 Hours (Table) 03/15/20 03/15/20 03/15/20 Range/Units 12:56 17:04 21:11 WBC (3.8-10.6) k/uL Neutrophils # (1.3-7.7) k/uL Monocytes # (0-1.0) k/uL Potassium (3.5-5.1) mmol/L BUN (9-20) mg/dL Creatinine (0.66-1.25) mg/dL Glucose (74-99) mg/dL POC Glucose (mg/dL) 191 H 251 H (75-99) mg/dL Plasma Lactic Acid Derrek 3.7 H* (0.7-2.0) mmol/L Calcium (8.4-10.2) mg/dL 03/16/20 03/16/20 03/16/20 Range/Units 05:48 05:49 07:05 WBC 13.3 H (3.8-10.6) k/uL Neutrophils # 9.7 H (1.3-7.7) k/uL Monocytes # 1.2 H (0-1.0) k/uL Potassium 2.9 L (3.5-5.1) mmol/L BUN 101 H* (9-20) mg/dL Creatinine 3.17 H (0.66-1.25) mg/dL Glucose 126 H (74-99) mg/dL POC Glucose (mg/dL) 132 H (75-99) mg/dL Plasma Lactic Acid Derrek (0.7-2.0) mmol/L Calcium 7.6 L (8.4-10.2) mg/dL 03/16/20 Range/Units 11:52 WBC (3.8-10.6) k/uL Neutrophils # (1.3-7.7) k/uL Monocytes # (0-1.0) k/uL Potassium (3.5-5.1) mmol/L BUN (9-20) mg/dL Creatinine (0.66-1.25) mg/dL Glucose (74-99) mg/dL POC Glucose (mg/dL) 131 H (75-99) mg/dL Plasma Lactic Acid Derrek (0.7-2.0) mmol/L Calcium (8.4-10.2) mg/dL Microbiology - Last 24 Hours (Table) 03/14/20 09:42 Blood Culture Gram Stain - Final Blood Blood Culture - Final Alpha Hemolytic Streptococcus 03/14/20 18:36 Urine Culture - Preliminary Urine,Voided Gram Neg Bacilli Assessment and Plan Plan: 1 acute kidney injury on top of a mild chronic renal insufficiency , improving and the creatinine is down to 3.1. Potassium level is low and this is to be replaced 2 severe underlying metabolic acidosis secondary to above, recovered 3 hypovolemic hypotension improving with IV fluids, improving and the patient is normotensive 4 coronary artery disease with previous bypass surgery and previous coronary stenting and previous aortic valve replacement 5 chronic atrial fibrillation with rapid ventricular response at time of admission secondary to above and the patient is demented on Eliquis on outpatient basis as a long-term anticoagulants. 6 diabetes mellitus maintenance on outpatient basis. 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 coli infection 17. Positive cocci in the blood, streptococcus species, alpha strep Plan Continue IV Invanz Pending cultures from the blood and the urine Echocardiogram to assess LV function Continue metoprolol Restart digoxin 0.125 mg by mouth daily Switch IV fluids to normal saline at the rate of 75 mL an hour Will restart Eliquis as of tomorrow once her renal function is further stabilized We will continue to follow. Facilities Planner on the case. The patient is i mproving.
[2020-03-16] MEDS ORDERED: VANCOMYCIN 1,500 MG in SODIUM CHLORIDE 0.9% 250 ML IVPB ONE (13:30)
--- NOTE | 2020-03-16 13:52 | P.PN ---
Subjective Progress Note Date: 03/16/20 History of Present Illness This is an 84-year-old male previously a patient of Dr. Peralta at [facility] and recently transitioned to Dr. Navarro with past medical history of c oronary artery disease status post CABG and stent 2 and aortic valve replacement, chronic persistent atrial fibrillation status post cardioversion,, hypertension, hyperlipidemia, diabetes mellitus type 2, Alzheimer dementia, neuro fibrosis, history of renal cancer status post left nephrectomy, melanoma. Patient had episode where he was found on the floor at the assisted unresponsive with a low blood pressure of 60/40. Patient did not have any cough or shortness of breath. He has known history as above. Patient has been a no code and no transfer to the hospital but family decided to send him in the hospital for evaluation. EKG was atrial fibrillation at rate of 121. Blood work revealed WBC 18, hemoglobin 17.2, platelet count 350. Chloride 108, CO2 9, BUN 119, creatinine 7.8, blood sugar 147. Initial lactic acid 2.6. Mosqueda catheter was placed and patient had no urine output. Chest x-ray showsshows acute posttraumatic changes. Slight vascular prominence. Correlate for dev eloping volume overload. Patient was given 2 L of IV fluids, Rocephin and admitted to the intensive care unit. Consults were added for Dr. Hicks and Dr. Noriega. Family does not plan for hemodialysis. 03/15: Patient remains in the intensive care unit but has not required vasopressors. He states he does not have any appetite. In general he is feeling much better from yesterday and looks much improved. Last evening he started having urine output around 5 PM. Urine is dark. He is currently on Invanz and vancomycin. Urinalysis revealed leukoesterase large, RBCs greater than 182, to be PVCs greater than 182, bacteria moderate. Covid 19 not detected. Digoxin level 0.4. Repeat lab work reveals improved leukocytosis 16.4, hemoglobin stable at 15.4, platelet count 251. Some improvement of his renal function with BUN of 121 and creatinine 6.22. CO2 is 13. Lactic acid remains elevated at 3.2. Patient has been seen by nephrology. Patient has been maintained on bicarb drip Renal ultrasound revealed nonobstructing renal stone in the right kidney. Right renal cyst. 03/16: Patient remains in intensive care unit. He has had significant improvement of his lab work. Bicarb drip discontinued today. The patient went into atrial fibrillation converted on amiodarone drip and cardiology consult added. Digoxin has been resumed and continued on Lopressor 50 mg twice daily. Patient has not required vasopressors. Echocardiogram reveals EF of 50-55%, mild aortic stenosis, mild mitral regurgitation, mild tricuspid regurgitation, small generalized pericardial effusion.Patient has been afebrile, heart rate 104, blood pressure 118/79, pulse ox 98% on room air. WBC 13.3, hemoglobin 15.1. Sodium 141, potassium 2.9, chloride 105, CO2 23, BUN 101, creatinine 3.17. Blood sugars running between 126 and 251. Potassium have been replaced. Magnesium 1.6. Patient is currently on vancomycin and Invanz. Blood culture positive for alphahemolytic strep and urine culture gram-negative bacilli. Anticipate discharge back to [facility] on Friday. Patient is cleared for transfer to the selective care unit. Review of Systems Constitutional: No fever, no chills, no documented fever. No weight change. Reports weakness, reports fatigue reports lethargy. Reports poor appetite. EENT: No headache. Chronic vision changes, chronic hearing loss. No epistaxis. No sore throat. Lungs: No shortness of breath, cough, no sputum production. No wheezing. Cardiovascular: No chest pain, no lower extremity edema. No palpitations. No paroxysmal nocturnal dyspnea. No orthopnea. No lightheadedness or dizziness. No syncopal episodes. Abdominal: No abdominal pain. No nausea, vomiting. No diarrhea. No constipation. No bloody or tarry stools. Genitourinary: No dysuria, increased frequency, urgency. No urinary retention.Mosqueda catheter in place Musculoskeletal: No myalgias. Reports muscle weakness, reports gait dysfunction, no frequent falls. Integumentary: No wounds, no lesions. No rash or pruritus. Neurologic: No aphasia. No facial droop. Reports change in mentation. Psychiatric: No depression. No anxiety. No mood swings. Endocrine: No abnormal blood sugars. No weight change. Physical Examination Gen: This is an 84-year-old male. He is resting in ICU bed and appears to be comfortabl and in no acute distress HEENT: Head is atraumatic, normocephalic. Pupils equal, round. Sclerae is anicteric. NECK: Supple. No JVD. No lymphadenopathy. No thyromegaly. LUNGS: Clear to auscultation. No wheezes or rhonchi. No intercostal retractions. HEART: Irregularly irregular, systolic murmur. ABDOMEN: Soft. Bowel sounds are present. No masses. No tenderness. Mosqueda catheter draining dark urine. EXTREMITIES: No pedal edema. No calf tenderness. NEUROLOGICAL: Patient is awake, alert and oriented to person and place. Generalized weakness noted. Assessment and Plan 1. Acute kidney injury with severe metabolic acidosis and hypotension. Patient admitted into the intensive care unit. Consults with cancer genetic counselor and nephrology appreciated. Patient has not required vasopressors. Continue bicarb drip. 2. Acute kidney injury secondary to ATN, patient is oliguric. Mosqueda catheter will was placed. Monitor XIANG. Monitor renal function. Metformin, lisinopril on hold. 3. Chronic persistent atrial fibrillation presenting with RVR. Continue digoxin 125 g daily, Lopressor 50 mg twice daily, eliquis 2.5 mg twice daily.Patient was started on amiodarone drip during the night, cardiology consult added. 4. Leukocytosis and SIRS with no focal area of infection. Patient is status post 1 dose of Rocephin. 5. History of coronary artery disease status post CABG and stent placement as well as aortic valve replacement. Continue aspirin 81 mg daily and Lopressor. 6. Diabetes mellitus type 2, insulin requiring. Levemi increased to 26 units at bedtime, NovoLog scale before meals and at bedtime. 7. Alzheimer's dementia. Continue Namenda 7.5 mg daily. 8. Hypertension. Continue Lopressor. 9. Hyperlipidemia. Patient not on statin. 10. Neuro fibrosis, stable. 11. History of renal cancer status post nephrectomy with chronic kidney disease stage III. 12. COVID-19 infection not present. 13. Mild hyperphosphatemia secondary to acute kidney injury. CODE STATUS: No code Prognosis: Poor [place] plan: [place] [email or web address] Imp[facility] and plan of care have been directed as dictated by the signing physician. Suzy Choi nurse practitioner acting as scribe for signing physician. Objective - Vital Signs Vital signs: Vital Signs Temp 98.6 F 03/16/20 04:00 Pulse 140 H 03/16/20 08:00 Resp 03/16/20 08:00 BP 109/73 03/16/20 08:00 Pulse Ox 97 03/16/20 08:00 Intake & Output 03/15/20 03/16/20 03/16/20 18:59 06:59 18:59 Intake Total 2284 1500 250 Output Total 1400 1345 215 Balance 884 155 35 Weight 95 kg Intake: IV 1500 1500 250 Dextrose 5% in Water 1, 1500 1500 250 000 ml @ 125 mls/hr IV . Q9H12M THEA with Sodium Bicarb (1 Meq/ml) 150 ml Rx#:[id number] Intake, IV Titration 384 Amount Ertapenem 0.5 gm In 50 Sodium Chloride 0.9% 50 ml @ 100 mls/hr IVPB DAILY THEA Rx#:[id number] Vancomycin 1,750 mg In 334 Sodium Chloride 0.9% 500 ml 500 ml @ 167 mls/hr IVPB ONCE ONE Rx#: [id number] Oral 400 Output: Urine 1400 1345 215 Other: Voiding Method Indwelling Catheter Indwelling Catheter - Labs CBC & Chem 7: 03/16/20 05:48 03/16/20 05:49 Labs: Abnormal Lab Results - Last 24 Hours (Table) 03/15/20 03/15/20 03/15/20 Range/Units 09:45 12:03 12:56 Potassium (3.5-5.1) mmol/L BUN (9-20) mg/dL Creatinine (0.66-1.25) mg/dL Glucose (74-99) mg/dL POC Glucose (mg/dL) 117 H (75-99) mg/dL Plasma Lactic Acid Derrek 3.2 H* 3.7 H* (0.7-2.0) mmol/L Calcium (8.4-10.2) mg/dL 03/15/20 03/15/20 03/16/20 Range/Units 17:04 21:11 05:49 Potassium 2.9 L (3.5-5.1) mmol/L BUN 101 H* (9-20) mg/dL Creatinine 3.17 H (0.66-1.25) mg/dL Glucose 126 H (74-99) mg/dL POC Glucose (mg/dL) 191 H 251 H (75-99) mg/dL Plasma Lactic Acid Derrek (0.7-2.0) mmol/L Calcium 7.6 L (8.4-10.2) mg/dL 03/16/20 Range/Units 07:05 Potassium (3.5-5.1) mmol/L BUN (9-20) mg/dL Creatinine (0.66-1.25) mg/dL Glucose (74-99) mg/dL POC Glucose (mg/dL) 132 H (75-99) mg/dL Plasma Lactic Acid Derrek (0.7-2.0) mmol/L Calcium (8.4-10.2) mg/dL Microbiology - Last 24 Hours (Table) 03/14/20 18:36 Urine Culture - Preliminary Urine,Voided Gram Neg Bacilli 03/14/20 09:42 Blood Culture Gram Stain - Preliminary Blood Blood Culture - Preliminary Streptococcus species
[2020-03-16 16:34] LABS: Glucose,Whole Blood 157 mg/dL (75-99)
[2020-03-16 17:06] LABS: Glucose,Whole Blood 146 mg/dL (75-99)
[2020-03-16] MEDS: INSULIN DETEMIR (LEVEMIR) 100 UNIT/ML SYR SQ SCH (20:50)
[2020-03-16 20:54] LABS: Glucose,Whole Blood 134 mg/dL (75-99)
[2020-03-17 06:28] LABS: Glucose,Whole Blood 108 mg/dL (75-99)
[2020-03-17] MEDS: INSULIN ASPART (NovoLOG) 100 UNIT/ML VIAL SQ SCH ×4 (06:30→20:10)
[2020-03-17] MEDS: LACTOBACILLUS ACIDOPH & BULGAR 1 EACH PACKET PO SCH (08:36)
[2020-03-17] MEDS: RIVASTIGMINE 4.6MG/24HR PATCH TRANSDERM SCH (08:36)
[2020-03-17] MEDS: ASPIRIN 81 MG PO SCH (08:37)
[2020-03-17] MEDS: METOPROLOL TARTRATE 50 MG TAB PO SCH ×3 (08:37→20:35)
[2020-03-17] MEDS: VENLAFAXINE HCL ER 75 MG CAP PO SCH (08:37)
[2020-03-17] MEDS: MEMANTINE 5 MG TAB PO SCH (08:38)
[2020-03-17] MEDS: DIGOXIN 125 MCG TAB PO SCH (08:40)
[2020-03-17 08:57] LABS: Calcium 8.3 mg/dL (8.4-10.2); Magnesium 2.5 mg/dL (1.6-2.3); Phosphorus 3.2 mg/dL (2.5-4.5); Potassium 3.1 mmol/L (3.5-5.1)
[2020-03-17 09:02] LABS: Vancomycin,Random 17.5 ug/mL
[2020-03-17] MEDS ORDERED: VANCOMYCIN 1,500 MG in SODIUM CHLORIDE 0.9% 250 ML IVPB ONE (10:00)
[2020-03-17] MEDS: VANCOMYCIN IV PER PHARMACY 1 EACH MISC MISCELLANE SCH (11:16)
[2020-03-17] MEDS ORDERED: POTASSIUM CHLORIDE ER 20 MEQ TAB.ER PO STA (11:25)
--- NOTE | 2020-03-17 11:29 | P.PN ---
Subjective Patient is seen in follow-up for acute kidney injury. Renal function improving. Has a Mosqueda catheter. Nonoliguric. Off IV fluids oral intake is fair. Not a reliable historian.. Vital signs are stable. General: The patient appeared well nourished and normally developed. HEENT: Head exam is unremarkable. Neck is without jugular venous distension. LUNGS: Lungs are clear to auscultation and percussion. Breath sounds decreased. HEART: Regular rate and rhythm. ABDOMEN: Soft, nontender. EXTREMITITES: No clubbing, cyanosis, or edema. Objective - Vital Signs Vital signs: Vital Signs Temp 98.1 F 03/17/20 08:00 Pulse 104 H 03/17/20 08:00 Resp 18 03/17/20 08:00 BP 125/86 03/17/20 08:00 Pulse Ox 98 03/17/20 08:00 Intake & Output 03/16/20 03/17/20 03/17/20 18:59 06:59 18:59 Intake Total 1150 Output Total 2014 400 600 Balance -865 -400 -600 Intake: IV 1150 Dextrose 5% in Water 1, 250 000 ml @ 125 mls/hr IV . Q9H12M THEA with Sodium Bicarb (1 Meq/ml) 150 ml Rx#:[id number] Magnesium Sulfate-D5w Pmx 200 1 gm In Dextrose/Water 1 100ml.bag @ 100 mls/hr IVPB Q1H TEHA Rx#: [id number] Potassium Chloride 10 meq 400 In Water For Injection 1 100ml.bag @ 100 mls/hr IVPB Q1HR THEA Rx#: [id number] Sodium Chloride 0.9% 1, 300 000 ml @ 75 mls/hr IV . [id number] [facility] Rx#:[id number] Output: Urine 965 400 Stool 1050 400 200 Other: Voiding Method Indwelling Catheter Indwelling Catheter Indwelling Catheter - Labs CBC & Chem 7: 03/16/20 05:48 03/17/20 07:45 Labs: Abnormal Lab Results - Last 24 Hours (Table) 03/16/20 03/16/20 03/16/20 Range/Units 05:48 11:52 16:32 WBC 13.3 H (3.8-10.6) k/uL Neutrophils # 9.7 H (1.3-7.7) k/uL Monocytes # 1.2 H (0-1.0) k/uL Potassium (3.5-5.1) mmol/L Chloride (98-107) mmol/L BUN (9-20) mg/dL Creatinine (0.66-1.25) mg/dL Glucose (74-99) mg/dL POC Glucose (mg/dL) 131 H 157 H (75-99) mg/dL Calcium (8.4-10.2) mg/dL Magnesium (1.6-2.3) mg/dL 03/16/20 03/16/20 03/17/20 Range/Units 17:05 20:37 06:27 WBC (3.8-10.6) k/uL Neutrophils # (1.3-7.7) k/uL Monocytes # (0-1.0) k/uL Potassium (3.5-5.1) mmol/L Chloride (98-107) mmol/L BUN (9-20) mg/dL Creatinine (0.66-1.25) mg/dL Glucose (74-99) mg/dL POC Glucose (mg/dL) 146 H 134 H 108 H (75-99) mg/dL Calcium (8.4-10.2) mg/dL Magnesium (1.6-2.3) mg/dL 03/17/20 Range/Units 07:45 WBC (3.8-10.6) k/uL Neutrophils # (1.3-7.7) k/uL Monocytes # (0-1.0) k/uL Potassium 3.1 L (3.5-5.1) mmol/L Chloride 110 H (98-107) mmol/L BUN 79 H (9-20) mg/dL Creatinine 2.45 H (0.66-1.25) mg/dL Glucose 121 H (74-99) mg/dL POC Glucose (mg/dL) (75-99) mg/dL Calcium 8.3 L (8.4-10.2) mg/dL Magnesium 2.5 H (1.6-2.3) mg/dL Microbiology - Last 24 Hours (Table) 03/14/20 09:42 Blood Culture Gram Stain - Final Blood Blood Culture - Final Alpha Hemolytic Streptococcus 03/14/20 18:36 Urine Culture - Final Urine,Voided Escherichia coli Assessment and Plan Plan: Assessment: 1. Acute kidney injury secondary to ATN secondary to hypotension. Creatinine 7.8 on admission and is down to 2.45 today. Creatinine in October 2019 was near 1.3. 2. Metabolic acidosis secondary to acute kidney injury, metformin and lactic acidosis. Improved. 3. Hypotension secondary to sepsis. Improved with IV fluids. 4. A. fib with RVR maintained on Lopressor. Stable. 5. Insulin-dependent diabetes mellitus. 6. Chronic kidney disease. Baseline creatinine near 1.3. Etiology is solitary right kidney. 7. Mild hyperphosphatemia secondary to acute kidney injury. Better. 8. Severe sepsis secondary to strep bacteremia. Urine culture positive for E. coli. On IV abx. 9. Hypokalemia secondary to intracellular Shifting from IV bicarb and poor intake. Magnesium normal. Plan: Replace potassium. 40 mEq today. Avoid nephrotoxins. Continue to monitor renal function and urine output. Normal saline at 50 mL an hour for maintenance fluids.
[2020-03-17] MEDS: ERTAPENEM 0.5 GM in SODIUM CHLORIDE 0.9% 50 ML IVPB SCH (11:31)
[2020-03-17] MEDS: CHOLESTYRAMINE (WITH SUGAR) 4 GM PACKET PO SCH ×2 (11:37→17:42)
[2020-03-17] MEDS: SODIUM CHLORIDE 0.9% 1,000 ML IV SCH ×2 (11:41→11:42)
[2020-03-17 11:54] LABS: Glucose,Whole Blood 126 mg/dL (75-99)
--- NOTE | 2020-03-17 12:15 | P.PN ---
Subjective Progress Note Date: 03/17/20 Principal diagnosis: Acute ESBL related urinary tract infection, and alpha hemolytic strep bacteremia 84-year-old female patient got admitted to the intensive care unit because of an acute kidney injury. Note that the patient's renal function back in October 2019 was showing a creatinine of 1.3 and creatinine of 7.8, serum bicarb of 9, anion gap of 22, lactic acid level of 2.3, calcium level of 8.8, the patient apparently was feeling weak and she sustained a fall and she was brought into the hospital by EMS. At the time of arrival, she was hypotensive and the patient received a total of 2 L of IV fluids. The patient was not a reliable historian. She denied having any chest pain or shortness of breath. She denied having any nausea vomiting or diarrhea or abdominal pain. Mosqueda catheter was placed and she hasn't had significant urine output to return after Mosqueda cat heter insertion. She has known history of dementia, coronary artery disease, atrial fibrillation and chronic stage III kidney disease with a baseline creatinine of 1.35. She has had previous history of renal cell cancer and she has undergone a right nephrectomy. She has neurofibromatosis and history of melanoma and ears and the back that were resected. She is quite hard of hearing at this point in time. In terms of her heart disease, the patient has undergone a previous coronary artery bypass surgery and previous cardiac catheterization and stenting and a previous history of aortic valve replacement.. She has been maintained on an DANIELLE inhibitor. Also, sound of the kidneys was done and showed a nonobstructive renal stone in the right adrenal cyst on the left. Findings were similar to compared to the previous ultrasound from 2014. Currently, the patient is receiving IV fluids in the form of a bicarb infusions a rate of 125 mL an hour. On today's evaluation of 03/15/2020, the patient is being seen for a follow-up. The patient much more alert and awake compared to yesterday. He is still on D5 with 3 ampules of sodium bicarb at 150 mEq running at 125 mL an hour. There patient has already received 2 boluses of 0.5 L of IV fluids yesterday. He is producing urine output. His renal function is gradually improving and the creatinine is down to 6.22. Serum bicarb is up to 13 and anion gap is around 22. Lactic acid level is at 3.7. The patient's urine cultures showing gram- negative bacillus. Based on previous history of ESBL producing E. coli, I started this patient on IV Invanz. Also, the blood culture showing gram- positive cocci and the patient was given a dose of vancomycin yesterday. He is afebrile. White cell count today is at 16.4. No nausea. No vomiting. No diarrhea. No abdominal pain. The patient did not require any pressors. The nephrology is on the case. No other significant events otherwise. On 03/16/2020, the patient is being seen for a follow-up. The patient is awake and alert and not having any respiratory difficulties. The patient was receiving bicarb infusion with 150 mg of sodium bicarb running at 150 mL an hour. Serum bicarb is normalized up to 23. The patient's meanwhile is showing improvement in renal function and creatinine is down to 3.0. He has adequate urine output. No signs of any fluid overload. He is in atrial fibrillation. At times is having occasional rapid ventricular response. He is currently on metoprolol. As for the blood cultures, it came back positive for strep species and unit cultures positive for gram-negative bacillus. The patient IV Invanz as an empiric antibiotic coverage. The patient on Levemir insulin 20 units for blood sugar control in addition to sinus care coverage. No other significant issues for now. The first on the case. No fever. No chills. Some liquidy loose diarrhea which recovered and the patient had only 1 episode. No pressors for now. On 03/17/2020 patient seen in follow-up on selective care unit, he is awake and alert, he is resting comfortably in bed, patient was found to have ESBL E. coli urinary tract infection, and his blood cultures came back positive for alphahemolytic streptococcus. His abiotic coverage consists of Invanz, and vancomycin was added. Hemodynamically patient is stable, we will complete her shortness of breath, room air pulse ox is 98%, breathing is comfortable, no cough or congestion, complaints of chest pain, his echocardiogram reveals atrial fibrillation, mild concentric LVH, low normal left ventricle systolic function with an EF of 50-55%, mild aortic stenosis, mild mitral regurg, mild mitral annular calcification and mild tricuspid regurgitation and no evidence of pulmonary hypertension. And there was a small generalized pericardial effusion present. No acute events overnight, today's labs have been reviewed, BMP was done only, his profile continues to improve, his BUN is down to 79 from 101 on yesterday's labs, and creatinine is down to 2.45 from 3.17 on yesterday's labs, potassium is 3.1, chloride is 110, and the rest of the lites was within normal limits, nephrology is following. His current IV fluids are with 0.9 normal saline at a rate of 50 ML per hour. Patient has indwelling catheter in place, he is urine output is adequate, he is tolerating oral intake, no nausea or vomiting. He is in atrial fibrillation, and his rate is currently controlled, we restarted his home dose digoxin, and metoprolol yesterday Objective - Vital Signs Vital signs: Vital Signs Temp 98.1 F 03/17/20 08:00 Pulse 104 H 03/17/20 08:00 Resp 18 03/17/20 08:00 BP 125/86 03/17/20 08:00 Pulse Ox 98 03/17/20 08:00 Intake & Output 03/16/20 03/17/20 03/17/20 18:59 06:59 18:59 Intake Total 1150 Output Total 2014 400 600 Balance -865 -400 -600 Intake: IV 1150 Dextrose 5% in Water 1, 250 000 ml @ 125 mls/hr IV . Q9H12M [facility] with Sodium Bicarb (1 Meq/ml) 150 ml Rx#:[id number] Magnesium Sulfate-D5w Pmx 200 1 gm In Dextrose/Water 1 100ml.bag @ 100 mls/hr IVPB Q1H [facility] Rx#: [id number] Potassium Chloride 10 meq 400 In Water For Injection 1 100ml.bag @ 100 mls/hr IVPB Q1HR [facility] Rx#: [id number] Sodium Chloride 0.9% 1, 300 000 ml @ 75 mls/hr IV . [id number] [facility] Rx#:[id number] Output: Urine 965 400 Stool 1050 400 200 Other: Voiding Method Indwelling Catheter Indwelling Catheter Indwelling Catheter - Exam GENERAL EXAM: Alert, very pleasant, 84-year-old white male, on room air, with a pulse ox of 98% comfortable in no apparent distress. HEAD: Normocephalic/atraumatic. EYES: Normal reaction of pupils, equal size. Conjunctiva pink, sclera white. NOSE: Clear with pink turbinates. THROAT: No erythema or exudates. NECK: No masses, no JVD, no thyroid enlargement, no adenopathy. CHEST: No chest wall deformity. Symmetrical expansion. LUNGS: Equal air entry with no crackles, wheeze, rhonchi or dullness. CVS: Irregular rate and rhythm, normal S1 and S2, no gallops, no murmurs, no rubs ABDOMEN: Soft, nontender. No hepatosplenomegaly, normal bowel sounds, no guarding or rigidity. EXTREMITIES: No clubbing, no edema, no cyanosis, 2+ pulses and upper and lower extremities. MUSCULOSKELETAL: Muscle strength and tone normal. SPINE: No scoliosis or deformity SKIN: Patient has diffuse neurofibromatosis skin lesions throughout the body CENTRAL NERVOUS SYSTEM: Alert and oriented -3. No focal deficits, tone is normal in all 4 extremities. PSYCHIATRIC: Alert and oriented -3. Appropriate affect. Intact judgment and insight. - Labs CBC & Chem 7: 03/16/20 05:48 03/17/20 07:45 Labs: Abnormal Lab Results - Last 24 Hours (Table) 03/16/20 03/16/20 03/16/20 Range/Units 16:32 17:05 20:37 Potassium (3.5-5.1) mmol/L Chloride (98-107) mmol/L BUN (9-20) mg/dL Creatinine (0.66-1.25) mg/dL Glucose (74-99) mg/dL POC Glucose (mg/dL) 157 H 146 H 134 H (75-99) mg/dL Calcium (8.4-10.2) mg/dL Magnesium (1.6-2.3) mg/dL 03/17/20 03/17/20 03/17/20 Range/Units 06:27 07:45 11:35 Potassium 3.1 L (3.5-5.1) mmol/L Chloride 110 H (98-107) mmol/L BUN 79 H (9-20) mg/dL Creatinine 2.45 H (0.66-1.25) mg/dL Glucose 121 H (74-99) mg/dL POC Glucose (mg/dL) 108 H 126 H (75-99) mg/dL Calcium 8.3 L (8.4-10.2) mg/dL Magnesium 2.5 H (1.6-2.3) mg/dL Microbiology - Last 24 Hours (Table) 03/14/20 09:42 Blood Culture Gram Stain - Final Blood Blood Culture - Final Alpha Hemolytic Streptococcus 03/14/20 18:36 Urine Culture - Final Urine,Voided Escherichia coli Assessment and Plan Plan: Assessment: 1 acute kidney injury on top of a mild chronic renal insufficiency , improving and the creatinine is down to 2.45. Potassium level is low and this is to be replaced 2 severe underlying metabolic acidosis secondary to above, recovered 3 hypovolemic hypotension improving with IV fluids, improving and the patient is normotensive 4 coronary artery disease with previous bypass surgery and previous coronary stenting and previous aortic valve replacement 5 chronic atrial fibrillation with rapid ventricular response at time of admiss ion secondary to above and the patient is demented on Eliquis on outpatient basis as a long-term anticoagulants. 6 diabetes mellitus maintenance on outpatient basis. 7 mild leukocytosis 8 history of renal cell carcinoma and the patient is post nephrectomy on the left 9 history of melanoma 10 Alzheimer dementia and the patient is currently pleasantly confused 11 neurofibromatosis 12 history of melanoma, resected 13 hyperlipidemia 14 history of hypertension 15 Hard of hearing 16 gram-negative sepsis related to ESBL E. coli urinary tract infection 17. Positive cocci in the blood, streptococcus species, alpha strep Plan: Continue antibiotics per ID service recommendations, current antibiotic coverage includes ertapenem, and vancomycin. Echocardiogram results have been reviewed, hemodynamically patient is stable, remains in A. fib with a controlled rate, no fever or chills, he remains on room air, no complaints of shortness of breath, he has renal profile is improving, no nausea no vomiting, tolerating oral intake. Pulmonary/critical care service will sign off and follow on as-needed basis I performed a history & physical examination of the patient and discussed their management with my nurse practitioner, Katrin Chamorro. I reviewed the nurse practitioner's note and agree with the documented findings and plan of care. Lung sounds are positive for clear breath sounds. The findings and the impression was discussed with the patient. I attest to the documentation by the nurse practitioner. Time with Patient: Less than 30
--- NOTE | 2020-03-17 12:27 | P.PN ---
Subjective Progress Note Date: 03/17/20 History of Present Illness This is an 84-year-old male previously a patient of Dr. Peralta at [facility] and recently transitioned to Dr. Navarro with past medical history of c oronary artery disease status post CABG and stent 2 and aortic valve replacement, chronic persistent atrial fibrillation status post cardioversion,, hypertension, hyperlipidemia, diabetes mellitus type 2, Alzheimer dementia, neuro fibrosis, history of renal cancer status post left nephrectomy, melanoma. Patient had episode where he was found on the floor at the assisted unresponsive with a low blood pressure of 60/40. Patient did not have any cough or shortness of breath. He has known history as above. Patient has been a no code and no transfer to the hospital but family decided to send him in the hospital for evaluation. EKG was atrial fibrillation at rate of 121. Blood work revealed WBC 18, hemoglobin 17.2, platelet count 350. Chloride 108, CO2 9, BUN 119, creatinine 7.8, blood sugar 147. Initial lactic acid 2.6. Mosqueda catheter was placed and patient had no urine output. Chest x-ray showsshows acute posttraumatic changes. Slight vascular prominence. Correlate for dev eloping volume overload. Patient was given 2 L of IV fluids, Rocephin and admitted to the intensive care unit. Consults were added for Dr. Hicks and Dr. Noriega. Family does not plan for hemodialysis. 03/15: Patient remains in the intensive care unit but has not required vasopressors. He states he does not have any appetite. In general he is feeling much better from yesterday and looks much improved. Last evening he started having urine output around 5 PM. Urine is dark. He is currently on Invanz and vancomycin. Urinalysis revealed leukoesterase large, RBCs greater than 182, to be PVCs greater than 182, bacteria moderate. Covid 19 not detected. Digoxin level 0.4. Repeat lab work reveals improved leukocytosis 16.4, hemoglobin stable at 15.4, platelet count 251. Some improvement of his renal function with BUN of 121 and creatinine 6.22. CO2 is 13. Lactic acid remains elevated at 3.2. Patient has been seen by nephrology. Patient has been maintained on bicarb drip Renal ultrasound revealed nonobstructing renal stone in the right kidney. Right renal cyst. 03/16: Patient remains in intensive care unit. He has had significant improvement of his lab work. Bicarb drip discontinued today. The patient went into atrial fibrillation converted on amiodarone drip and cardiology consult added. Digoxin has been resumed and continued on Lopressor 50 mg twice daily. Patient has not required vasopressors. Echocardiogram reveals EF of 50-55%, mild aortic stenosis, mild mitral regurgitation, mild tricuspid regurgitation, small generalized pericardial effusion.Patient has been afebrile, heart rate 104, blood pressure 118/79, pulse ox 98% on room air. WBC 13.3, hemoglobin 15.1. Sodium 141, potassium 2.9, chloride 105, CO2 23, BUN 101, creatinine 3.17. Blood sugars running between 126 and 251. Potassium have been replaced. Magnesium 1.6. Patient is currently on vancomycin and Invanz. Blood culture positive for alphahemolytic strep and urine culture gram-negative bacilli. Anticipate discharge back to [facility] on Friday. Patient is cleared for transfer to the selective care unit. 03/17: Patient is seen today on the cardiac stepdown unit. Stool specimen was sent last evening for C. difficile toxin which came back negative. Fecal management system remains in place with output of brown liquid stool. Question will be added. Patient is eating very little and refused breakfast this morning. Patient is confused which is his baseline. Msoqueda catheter remains in place and urine output is clear marina. He remains in atrial fibrillation running in the 90s and low 100s. Blood pressure 125/86, pulse ox 98% on room air. Repeat blood work reveals potassium 3.1, chloride 110, BUN 79 creatinine 2.45. Blood sugars are running between 108 126. Patient remains on IV antibiotics of Invanz and vancomycin as directed by Dr. Hicks. IV fluids at 50 mL per hour per nephrology, potassium was replaced. Anticipate return to [facility] on Friday. [facility] liaison updated. Yesterday, patient had mild RVR and Lopressor was increased frequency to 3 times daily. Review of Systems Constitutional: No fever, no chills, no documented fever. Reports weakness, reports fatigue reports lethargy. Reports poor appetite. EENT: No headache. Chronic vision changes, chronic hearing loss. No epistaxis. No sore throat. Lungs: No shortness of breath, cough, no sputum production. No wheezing. Cardiovascular: No chest pain, no lower extremity edema. No palpitations. No paroxysmal nocturnal dyspnea. No orthopnea. No lightheadedness or dizziness. No syncopal episodes. Abdominal: No abdominal pain. No nausea, vomiting. No diarrhea. No constipation. No bloody or tarry stools. Genitourinary: No dysuria, increased frequency, urgency. No urinary retention. Mosqueda catheter in place Musculoskeletal: No myalgias. Reports muscle weakness, reports gait dysfunction. Integumentary: No wounds, no lesions. No rash or pruritus. Neurologic: No aphasia. No facial droop. Reports change in mentation. Underlying dementia. Psychiatric: No depression. No anxiety. No mood swings. Endocrine: No abnormal blood sugars. No weight change. Physical Examination Gen: This is an 84-year-old male. He is resting in bed and appears to be comfortable and in no acute distress HEENT: Head is atraumatic, normocephalic. Pupils equal, round. Sclerae is anicteric. NECK: Supple. No JVD. No lymphadenopathy. No thyromegaly. LUNGS: Clear to auscultation. No wheezes or rhonchi. No intercostal retractions. HEART: Irregularly irregular, systolic murmur. ABDOMEN: Soft. Bowel sounds are present. No masses. No tenderness. Mosqueda catheter draining clear marina urine. EXTREMITIES: No pedal edema. No calf tenderness. NEUROLOGICAL: Patient is awake, alert and oriented to person. Generalized weakness noted. Assessment and Plan 1. Acute kidney injury with severe metabolic acidosis and hypotension. Consults with group insurance specialist and nephrology appreciated. Patient has not required v asopressors. Continue IV fluids. 2. Acute kidney injury secondary to ATN. Monitor I&O. Monitor renal function. Metformin, lisinopril on hold. 3. Chronic persistent atrial fibrillation presenting with RVR. Continue digoxin 125 g daily, Lopressor 50 mg increased to 3 times daily, eliquis 2.5 mg twice daily. Off amiodarone drip. 4. Leukocytosis and SIRS with no focal area of infection. Continue Invanz and vancomycin. 5. History of coronary artery disease status post CABG and stent placement as well as aortic valve replacement. Continue aspirin 81 mg daily and Lopressor. 6. Diabetes mellitus type 2, insulin requiring. Levemi increased to 26 units at bedtime, NovoLog scale before meals and at bedtime. 7. Alzheimer's dementia. Continue Namenda 7.5 mg daily. 8. Hypertension. Continue Lopressor. 9. Hyperlipidemia. Patient not on statin. 10. Neuro fibrosis, stable. 11. History of renal cancer status post nephrectomy with chronic kidney disease stage III. 12. COVID-19 infection not present. 13. Mild hyperphosphatemia secondary to acute kidney injury. 14. Diarrhea most likely secondary to antibiotics. C. difficile toxin not detected. Patient started on Questran twice daily. CODE STATUS: No code Prognosis: Poor Discharge plan: Return to [facility] on Friday Impression and plan of care have been directed as dictated by the signing physician. Suzy Choi nurse practitioner acting as scribe for signing physician. Objective - Vital Signs Vital signs: Vital Signs Temp 98.1 F 03/17/20 08:00 Pulse 104 H 03/17/20 08:00 Resp 18 03/17/20 08:00 BP 125/86 03/17/20 08:00 Pulse Ox 98 03/17/20 08:00 Intake & Output 03/16/20 03/17/20 03/17/20 18:59 06:59 18:59 Intake Total 1150 Output Total 2014 400 Balance -865 -400 Intake: IV 1150 Dextrose 5% in Water 1, 250 000 ml @ 125 mls/hr IV . Q9H12M [facility] with Sodium Bicarb (1 Meq/ml) 150 ml Rx#:[id number] Magnesium Sulfate-D5w Pmx 200 1 gm In Dextrose/Water 1 100ml.bag @ 100 mls/hr IVPB Q1H [facility] Rx#: [id number] Potassium Chloride 10 meq 400 In Water For Injection 1 100ml.bag @ 100 mls/hr IVPB Q1HR [facility] Rx#: [id number] Sodium Chloride 0.9% 1, 300 000 ml @ 75 mls/hr IV . [id number] [facility] Rx#:[id number] Output: Urine 965 Stool 1050 400 Other: Voiding Method Indwelling Catheter Indwelling Catheter - Labs CBC & Chem 7: 03/16/20 05:48 03/17/20 07:45 Labs: Abnormal Lab Results - Last 24 Hours (Table) 03/16/20 03/16/20 03/16/20 Range/Units 05:48 11:52 16:32 WBC 13.3 H (3.8-10.6) k/uL Neutrophils # 9.7 H (1.3-7.7) k/uL Monocytes # 1.2 H (0-1.0) k/uL POC Glucose (mg/dL) 131 H 157 H (75-99) mg/dL 03/16/20 03/16/20 03/17/20 Range/Units 17:05 20:37 06:27 WBC (3.8-10.6) k/uL Neutrophils # (1.3-7.7) k/uL Monocytes # (0-1.0) k/uL POC Glucose (mg/dL) 146 H 134 H 108 H (75-99) mg/dL Microbiology - Last 24 Hours (Table) 03/14/20 09:42 Blood Culture Gram Stain - Final Blood Blood Culture - Final Alpha Hemolytic Streptococcus 03/14/20 18:36 Urine Culture - Final Urine,Voided Escherichia coli
--- NOTE | 2020-03-17 13:09 | CDI ---
Documentation Clarification Form Date: 03/17/2020 12:53:50 PM From: Sheryl Roa CCS, CCDS Admit Date: 03/14/2020 10:12:00 AM Patient Name: Steff Guzman Visit Number: [id number] Discharge Date: ATTENTION: The Clinical Documentation Specialists (CDI) and [facility] Coding Staff appreciate your assistance in clarifying documentation. Please respond to the clarification below the line at the bottom and electronically sign. The CDI & [facility] Coding staff will review the response and follow-up if needed. Please note: Queries are made part of the Legal Health Record. If you have any questions, please contact the author of this message via ITS. Dr. Deven Navarro: Sepsis is documented in the 03/13 ED note: "WBC 18 likely secondary to sepsis". the 03/14 Nephrology consult: "Concern for Sepsis". the 03/16 Nephrology Progress Note: "Hypotension secondary to Sepsis. Severe Sepsis secondary to Strep Bacteremia" and the 03/17 Pulmonary/Critical Care Progress Note: "Gram negative Sepsis related to ESBL E coli UTI". History/Risk Factors: Chronic persistent atrial fibrillation, CAD status post CABG, Stent & AVR, IDDM II, Hypertension, Alzheimer's dementia & history of Renal Cancer status post nephrectomy with CKD III. Clinical Indicators: Patient presented to ED [facility] 03[facility]14, [facility] Atrial Fibrillation, Hypotensive, dry mucous membranes, admitted with Acute Renal Failure & ATN. 03/14 VS: P 126^^, R 16-25^, BP 76/51, PO 93 RA 03/14 LAB: WBC 18.0^, Neut 14.0^, BUN 119^^, Cr 7.80^^, Glucose 147^, Lactic Acid 2.6^^. 03/14 UA: Red, Turbid, 2+ protein, Large Blood, Large Esterase, RBC >182, WBC >182. 03/14 Blood Cx, Final: Alpha Hemolytic Streptococcus. 03/14 Urine Cx, Final: E Coli Treatment: Admit to ICU, IV fluid bolus 1,000 mls @ 999 mls/hr q/hr, IV Rocephin, IV Dextrose/Water w/NaBicarb. 03/15: IV Vancomycin, IV Ertapenem. In your professional opinion, please clarify if these findings signify one of the following conditions, whether the condition is POA, and cause, if known: Sepsis ruled out SIRS, without underlying infectious process Sepsis XX o Severe Sepsis o Septic Shock Other, please specify Unable to determine Present on Admission: Yes or No Identify the (suspected) organism Link or clarify if there is associated (due to/with): o Organ failure o Shock (Last Revision: November 2017) MTDD
[2020-03-17 16:51] LABS: Glucose,Whole Blood 122 mg/dL (75-99)
[2020-03-17 19:56] LABS: Glucose,Whole Blood 112 mg/dL (75-99)
[2020-03-17] MEDS: INSULIN DETEMIR (LEVEMIR) 100 UNIT/ML SYR SQ SCH (20:10)
[2020-03-17] MEDS: NYSTATIN 100,000 UNIT/ML SUSP 500,000 UNIT/5 ML CUP PO SCH (20:35)
[2020-03-18 06:28] LABS: Glucose,Whole Blood 118 mg/dL (75-99)
[2020-03-18] MEDS: INSULIN ASPART (NovoLOG) 100 UNIT/ML VIAL SQ SCH ×4 (06:37→21:09)
[2020-03-18 08:53] LABS: Calcium 8.5 mg/dL (8.4-10.2); Magnesium 2.6 mg/dL (1.6-2.3); Potassium 3.6 mmol/L (3.5-5.1)
[2020-03-18] MEDS ORDERED: DEXTROSE 5%-0.9% NACL 1,000 ML IV SCH (10:00)
--- NOTE | 2020-03-18 11:02 | P.PN ---
Subjective Progress Note Date: 03/18/20 History of Present Illness This is an 84-year-old male previously a patient of Dr. Peralta at [facility] and recently transitioned to Dr. Navarro with past medical history of c oronary artery disease status post CABG and stent 2 and aortic valve replacement, chronic persistent atrial fibrillation status post cardioversion,, hypertension, hyperlipidemia, diabetes mellitus type 2, Alzheimer dementia, neuro fibrosis, history of renal cancer status post left nephrectomy, melanoma. Patient had episode where [facility] un[facility] with a low blood pressure of 60/40. Patient did not have any cough or shortness of breath. He has known history as above. Patient has been a no code and no transfer to the hospital but family decided to send him in the hospital for evaluation. EKG was atrial fibrillation at rate of 121. Blood work revealed WBC 18, hemoglobin 17.2, platelet count 350. Chloride 108, CO2 9, BUN 119, creatinine 7.8, blood sugar 147. Initial lactic acid 2.6. Mosqueda catheter was placed and patient had no urine output. Chest x-ray showsshows acute posttraumatic changes. Slight vascular prominence. Correlate for dev eloping volume overload. Patient was given 2 L of IV fluids, Rocephin and admitted to the intensive care unit. Consults were added for Dr. Hicks and Dr. Noriega. Family does not plan for hemodialysis. 03/15: Patient remains in the intensive care unit but has not required vasopressors. He states he does not have any appetite. In general he is feeling much better from yesterday and looks much improved. Last evening he started having urine output around 5 PM. Urine is dark. He is currently on Invanz and vancomycin. Urinalysis revealed leukoesterase large, RBCs greater than 182, to be PVCs greater than 182, bacteria moderate. Covid 19 not detected. Digoxin level 0.4. Repeat lab work reveals improved leukocytosis 16.4, hemoglobin stable at 15.4, platelet count 251. Some improvement of his renal function with BUN of 121 and creatinine 6.22. CO2 is 13. Lactic acid remains elevated at 3.2. Patient has been seen by nephrology. Patient has been maintained on bicarb drip Renal ultrasound revealed nonobstructing renal stone in the right kidney. Right renal cyst. 03/16: Patient remains in intensive care unit. He has had significant improvement of his lab work. Bicarb drip discontinued today. The patient went into atrial fibrillation converted on amiodarone drip and cardiology consult added. Digoxin has been resumed and continued on Lopressor 50 mg twice daily. Patient has not required vasopressors. Echocardiogram reveals EF of 50-55%, mild aortic stenosis, mild mitral regurgitation, mild tricuspid regurgitation, small generalized pericardial effusion.Patient has been afebrile, heart rate 104, blood pressure 118/79, pulse ox 98% on room air. WBC 13.3, hemoglobin 15.1. Sodium 141, potassium 2.9, chloride 105, CO2 23, BUN 101, creatinine 3.17. Blood sugars running between 126 and 251. Potassium have been replaced. Magnesium 1.6. Patient is currently on vancomycin and Invanz. Blood culture positive for alphahemolytic strep and urine culture gram-negative bacilli. Anticipate discharge back to [facility] on Friday. Patient is cleared for transfer to the selective care unit. 03/17: Patient is seen today on the cardiac stepdown unit. Stool specimen was sent last evening for C. difficile toxin which came back negative. Fecal management system remains in place with output of brown liquid stool. Question will be added. Patient is eating very little and refused breakfast this morning. Patient is confused which is his baseline. Mosqueda catheter remains in place and urine output is clear marina. He remains in atrial fibrillation running in the 90s and low 100s. Blood pressure 125/86, pulse ox 98% on room air. Repeat blood work reveals potassium 3.1, chloride 110, BUN 79 creatinine 2.45. Blood sugars are running between 108 126. Patient remains on IV antibiotics of Invanz and vancomycin as directed by Dr. Hicks. IV fluids at 50 mL per hour per nephrology, potassium was replaced. Anticipate return to [facility] on Friday. [facility] liaison updated. Yesterday, patient had mild RVR and Lopressor was increased frequency to 3 times daily. 03/18: Patient is seen today on the cardiac stepdown unit. Patient continues to not eat very much. His mental status is at baseline with chronic confusion. He continues to have watery stool with fecal management system in place emptying 2 bags in the past 24 hours. No improvement with Questran and Imodium added. He has been afebrile, heart rate 104, blood pressure 122/87, pulse ox 96% on room air. Repeat blood work reveals sodium of 151, BUN 70 creatinine 2.27. Potassium 3.6, chloride 121, CO2 20. Blood sugar running between 112 and 148. Magnesium 2.6. IV fluids will be changed to D5 normal saline at 100 per hour until seen by nephrology. Blood culture alphahemolytic streptococcus. Urine culture is E. coli ESBL sensitive to ertapenem and vancomycin will be discontinued. Anticipate discharge to [facility] on Friday. Review of Systems Constitutional: No fever, no chills, no documented fever. Reports weakness, reports fatigue reports lethargy. Reports poor appetite. EENT: No headache. Chronic vision changes, chronic hearing loss. No epistaxis. No sore throat. Lungs: No shortness of breath, cough, no sputum production. No wheezing. Cardiovascular: No chest pain, no lower extremity edema. No palpitations. No paroxysmal nocturnal dyspnea. No orthopnea. No lightheadedness or dizziness. No syncopal episodes. Abdominal: No abdominal pain. No nausea, vomiting. Reports diarrhea. No constipation. No bloody or tarry stools. Genitourinary: No dysuria, increased frequency, urgency. No urinary retention. Mosqueda catheter in place Musculoskeletal: No myalgias. Reports muscle weakness, reports gait dysfunction. Integumentary: No wounds, no lesions. No rash or pruritus. Neurologic: No aphasia. No facial droop. Reports change in mentation. Underlying dementia. Psychiatric: No depression. No anxiety. No mood swings. Endocrine: No abnormal blood sugars. No weight change. Physical Examination Gen: This is an 84-year-old male. He is resting in bed and appears to be comfortable and in no acute distress HEENT: Head is atraumatic, normocephalic. Pupils equal, round. Sclerae is anicteric. NECK: Supple. No JVD. No lymphadenopathy. No thyromegaly. LUNGS: Clear to auscultation. No wheezes or rhonchi. No intercostal retractions. HEART: Irregularly irregular, systolic murmur. ABDOMEN: Soft. Bowel sounds are present. No masses. No tenderness. Mosqueda catheter draining clear marina urine. Fecal management system in place. EXTREMITIES: No pedal edema. No calf tenderness. NEUROLOGICAL: Patient is awake, alert and oriented to person. Generalized weakness noted. Assessment and Plan 1. Acute kidney injury with severe metabolic acidosis and hypotension. Consults with tenant selector and nephrology appreciated. Patient has not required vasopressors. Continue IV fluids. 2. Acute kidney injury secondary to ATN. Monitor I&O. Monitor renal function. Metformin, lisinopril on hold. 3. Chronic persistent atrial fibrillation presenting with RVR. Continue di goxin 125 g daily, Lopressor 50 mg increased to 3 times daily, eliquis 2.5 mg twice daily. Off amiodarone drip. 4. Leukocytosis and sepsis secondary to ESBL E. coli UTI, present on admission. Continue Invanz and discontinue vancomycin. 5. History of coronary artery disease status post CABG and stent placement as well as aortic valve replacement. Continue aspirin 81 mg daily and Lopressor. 6. Diabetes mellitus type 2, insulin requiring. Levemir increased to 26 units at bedtime, NovoLog scale before meals and at bedtime. 7. Alzheimer's dementia. Continue Namenda 7.5 mg daily. 8. Hypertension. Continue Lopressor. 9. Hyperlipidemia. Patient not on statin. 10. Neuro fibrosis, stable. 11. History of renal cancer status post nephrectomy with chronic kidney disease stage III. 12. COVID-19 infection not present. 13. Mild hyperphosphatemia secondary to acute kidney injury. 14. Diarrhea most likely secondary to antibiotics. C. difficile toxin not detected. Not improved with Questran. Imodium added scheduled 4 times daily. 15. Hypernatremia due to profuse diarrhea. IV fluids changed to D5 normal saline at 100 mL per hour until seen by nephrology. CODE STATUS: No code Prognosis: Poor Discharge plan: Return to [facility] on Friday Impression and plan of care have been directed as dictated by the signing physician. Suzy Choi nurse practitioner acting as scribe for signing physician. Objective - Vital Signs Vital signs: Vital Signs Temp 98.1 F 03/18/20 03:57 Pulse 104 H 03/18/20 03:57 Resp 18 03/18/20 03:57 BP 122/87 03/18/20 03:57 Pulse Ox 96 03/18/20 03:57 Intake & Output 03/17/20 03/18/20 03/18/20 18:59 06:59 18:59 Intake Total 360 180 Output Total 1500 3800 Balance -1140 -3800 180 Weight 95.6 kg Intake: Oral 360 180 Output: Urine 800 400 Stool 700 3400 Other: Voiding Method Indwelling Catheter Indwelling Catheter - Labs CBC & Chem 7: 03/16/20 05:48 03/18/20 08:09 Labs: Abnormal Lab Results - Last 24 Hours (Table) 03/17/20 03/17/20 03/17/20 Range/Units 11:35 16:50 19:56 Sodium (137-145) mmol/L Chloride (98-107) mmol/L Carbon Dioxide (22-30) mmol/L BUN (9-20) mg/dL Creatinine (0.66-1.25) mg/dL Glucose (74-99) mg/dL POC Glucose (mg/dL) 126 H 122 H 112 H (75-99) mg/dL Magnesium (1.6-2.3) mg/dL 03/18/20 03/18/20 Range/Units 06:27 08:09 Sodium 151 H (137-145) mmol/L Chloride 121 H (98-107) mmol/L Carbon Dioxide 20 L (22-30) mmol/L BUN 70 H (9-20) mg/dL Creatinine 2.27 H (0.66-1.25) mg/dL Glucose 148 H (74-99) mg/dL POC Glucose (mg/dL) 118 H (75-99) mg/dL Magnesium 2.6 H (1.6-2.3) mg/dL Microbiology - Last 24 Hours (Table) 03/14/20 09:42 Blood Culture Gram Stain - Final Blood Blood Culture - Final Alpha Hemolytic Streptococcus
[2020-03-18] MEDS: LACTOBACILLUS ACIDOPH & BULGAR 1 EACH PACKET PO SCH (11:15)
[2020-03-18] MEDS: ASPIRIN 81 MG PO SCH (11:15)
[2020-03-18] MEDS: MEMANTINE 5 MG TAB PO SCH (11:16)
[2020-03-18] MEDS: CHOLESTYRAMINE (WITH SUGAR) 4 GM PACKET PO SCH ×2 (11:16→16:20)
[2020-03-18] MEDS: METOPROLOL TARTRATE 50 MG TAB PO SCH ×3 (11:16→21:10)
[2020-03-18] MEDS: DIGOXIN 125 MCG TAB PO SCH (11:16)
[2020-03-18] MEDS: NYSTATIN 100,000 UNIT/ML SUSP 500,000 UNIT/5 ML CUP PO SCH ×4 (11:17→21:44)
[2020-03-18] MEDS: VENLAFAXINE HCL ER 75 MG CAP PO SCH (11:17)
[2020-03-18] MEDS: ERTAPENEM 0.5 GM in SODIUM CHLORIDE 0.9% 50 ML IVPB SCH (11:17)
[2020-03-18] MEDS: RIVASTIGMINE 4.6MG/24HR PATCH TRANSDERM SCH (11:18)
[2020-03-18] MEDS: LOPERAMIDE 2 MG CAP PO SCH ×4 (11:31→21:10)
[2020-03-18] MEDS: HEPARIN SODIUM,PORCINE 5,000 UNIT/ML 1 ML VIAL SQ SCH ×2 (11:31→21:10)
[2020-03-18] MEDS: SODIUM CHLORIDE 0.9% 1,000 ML IV SCH (12:43)
[2020-03-18] MEDS: VANCOMYCIN IV PER PHARMACY 1 EACH MISC MISCELLANE SCH (12:43)
[2020-03-18 12:52] LABS: Glucose,Whole Blood 176 mg/dL (75-99)
[2020-03-18] MEDS ORDERED: DEXTROSE 5% IN WATER 1,000 ML IV ONE (13:18)
--- NOTE | 2020-03-18 13:24 | P.PN ---
Subjective Progress Note Date: 03/18/20 Follow-up for acute kidney injury. Still persistent diarrhea. No nausea vomiting. Decreased oral intake. Urine output of 5.3 L in the last 24 hours. Objective - Vital Signs Vital signs: Vital Signs Temp 97.7 F 03/18/20 12:45 Pulse 123 H 03/18/20 12:45 Resp 18 03/18/20 12:45 BP 128/74 03/18/20 12:45 Pulse Ox 95 03/18/20 12:45 Intake & Output 03/17/20 03/18/20 03/18/20 18:59 06:59 18:59 Intake Total 360 548 Output Total 1500 3800 600 Balance -1140 -3800 -52 Weight 95.6 kg 94.7 kg Intake: IV 250 Dextrose 5%-0.9% NaCl 1, 200 000 ml @ 100 mls/hr IV . Q10H [facility] Rx#:[id number] Ertapenem 0.5 gm In 50 Sodium Chloride 0.9% 50 ml @ 100 mls/hr IVPB DAILY [facility] Rx#:[id number] Oral 360 298 Output: Urine 800 400 Stool 700 3400 600 Other: Voiding Method Indwelling Catheter Indwelling Catheter Indwelling Catheter # Bowel Movements 2 - Exam No acute distress S1-S2 heard Lungs clear Abdomen soft, Mosqueda catheter No edema - Labs CBC & Chem 7: 03/16/20 05:48 03/18/20 08:09 Labs: Abnormal Lab Results - Last 24 Hours (Table) 03/17/20 03/17/20 03/18/20 Range/Units 16:50 19:56 06:27 Sodium (137-145) mmol/L Chloride (98-107) mmol/L Carbon Dioxide (22-30) mmol/L BUN (9-20) mg/dL Creatinine (0.66-1.25) mg/dL Glucose (74-99) mg/dL POC Glucose (mg/dL) 122 H 112 H 118 H (75-99) mg/dL Magnesium (1.6-2.3) mg/dL 03/18/20 03/18/20 Range/Units 08:09 12:50 Sodium 151 H (137-145) mmol/L Chloride 121 H (98-107) mmol/L Carbon Dioxide 20 L (22-30) mmol/L BUN 70 H (9-20) mg/dL Creatinine 2.27 H (0.66-1.25) mg/dL Glucose 148 H (74-99) mg/dL POC Glucose (mg/dL) 176 H (75-99) mg/dL Magnesium 2.6 H (1.6-2.3) mg/dL Assessment and Plan Assessment: #1 nonoliguric acute kidney injury secondary to ischemic ATN. Creatinine on admission 7.8 MG per DL improving to 2.2 MG per DL today. #2 chronic kidney disease stage III secondary to nephrosclerosis baseline creatinine of 1.3 MG per DL. #3 polyuria secondary to diuretic phase of ATN. #4 hyponatremia secondary to polyuria/diarrhea and decreased by mouth intake #5 hypokalemia secondary to renal loss of potassium #6 diarrhea, C. diff negative. #7 non-anion gap metabolic acidosis secondary to hyperchloremia. Plan: #1 continue with IV fluids, stop D5/0.9 saline to just D5 water at 100 ML's an hour. #2 replace potassium, 20 mEq twice a day #3 check serum osmolality, urine osmolality and urine electrolytes. #4 if hypernatremia persistent, give 1 g of DDAVP tomorrow. #5 avoid nephrotoxic agents and hypotensive episodes.
[2020-03-18] MEDS: POTASSIUM CHLORIDE ER 20 MEQ TAB.ER PO SCH ×2 (16:20→21:16)
[2020-03-18 16:53] LABS: Amorphous Sediment,Urine Rare /hpf; Appearance,Urine Cloudy (Clear); Bacteria,Urine Occasional /hpf; Bilirubin,Urine Negative (Negative); Blood,Urine Small (Negative); Color,Urine Yellow; Glucose,Urine (UA) Negative (Negative); Ketones,Urine Negative (Negative); Leukocyte Esterase,Urine Small (Negative); Mucus,Urine Rare /hpf; Nitrite,Urine Negative (Negative); Protein,Urine 1+ (Negative); RBC,Urine 4 /hpf (0-5); Specific Gravity,Urine 1.019 (1.001-1.035); Squamous Epithelial Cell,Urine 1 /hpf (0-4); Urobilinogen,Urine <2.0 mg/dL (<2.0); WBC,Urine 4 /hpf (0-5)
[2020-03-18 17:17] LABS: Glucose,Whole Blood 163 mg/dL (75-99)
[2020-03-18 20:28] LABS: Glucose,Whole Blood 292 mg/dL (75-99)
[2020-03-18] MEDS: INSULIN DETEMIR (LEVEMIR) 100 UNIT/ML SYR SQ SCH (21:08)
[2020-03-19 06:03] LABS: Glucose,Whole Blood 70 mg/dL (75-99)
[2020-03-19] MEDS: INSULIN ASPART (NovoLOG) 100 UNIT/ML VIAL SQ SCH ×4 (07:44→22:52)
[2020-03-19 08:31] LABS: HCT 52.9 % (39.0-53.0); HGB 17.1 gm/dL (13.0-17.5); Hypochromasia Slight; MCH 30.1 pg (25.0-35.0); MCHC 32.3 g/dL (31.0-37.0); MCV 93.2 fL (80.0-100.0); Mean Platelet Volume 10.1; Platelet Count 302 k/uL (150-450); RBC 5.68 m/uL (4.30-5.90); RDW 15.6 % (11.5-15.5); WBC 14.4 k/uL (3.8-10.6)
[2020-03-19] MEDS: ERTAPENEM 0.5 GM in SODIUM CHLORIDE 0.9% 50 ML IVPB SCH (08:50)
[2020-03-19] MEDS: LOPERAMIDE 2 MG CAP PO SCH ×4 (08:58→22:51)
[2020-03-19] MEDS: HEPARIN SODIUM,PORCINE 5,000 UNIT/ML 1 ML VIAL SQ SCH (08:58)
[2020-03-19] MEDS: METOPROLOL TARTRATE 50 MG TAB PO SCH ×3 (08:58→22:51)
[2020-03-19] MEDS: VENLAFAXINE HCL ER 75 MG CAP PO SCH (08:58)
[2020-03-19] MEDS: NYSTATIN 100,000 UNIT/ML SUSP 500,000 UNIT/5 ML CUP PO SCH ×4 (08:58→23:53)
[2020-03-19] MEDS: RIVASTIGMINE 4.6MG/24HR PATCH TRANSDERM SCH (08:58)
[2020-03-19] MEDS: DIGOXIN 125 MCG TAB PO SCH (08:58)
[2020-03-19] MEDS: LACTOBACILLUS ACIDOPH & BULGAR 1 EACH PACKET PO SCH (08:58)
[2020-03-19] MEDS: POTASSIUM CHLORIDE ER 20 MEQ TAB.ER PO SCH (08:59)
[2020-03-19] MEDS: CHOLESTYRAMINE (WITH SUGAR) 4 GM PACKET PO SCH ×2 (08:59→19:13)
[2020-03-19] MEDS: ASPIRIN 81 MG PO SCH (08:59)
[2020-03-19] MEDS: MEMANTINE 5 MG TAB PO SCH (08:59)
[2020-03-19 09:30] LABS: ALT 21 U/L (4-49); AST 38 U/L (17-59); African American GFR (CKD) >90 (>60 ml/min/1.73 sqM); Albumin 3.4 g/dL (3.5-5.0); Alkaline Phosphatase 47 U/L (38-126); Anion Gap 7 mmol/L; Blood Urea Nitrogen 19 mg/dL (9-20); Calcium 8.3 mg/dL (8.4-10.2); Carbon Dioxide 22 mmol/L (22-30); Chloride 110 mmol/L (98-107); Glucose 90 mg/dL (74-99); Non-African American GFR(CKD) 83 (>60 ml/min/1.73 sqM); Potassium 4.4 mmol/L (3.5-5.1); Sodium 139 mmol/L (137-145); Total Bilirubin 0.8 mg/dL (0.2-1.3)
[2020-03-19 11:56] LABS: Glucose,Whole Blood 98 mg/dL (75-99)
--- NOTE | 2020-03-19 12:37 | P.PN ---
Subjective Progress Note Date: 03/19/20 History of Present Illness This is an 84-year-old male previously a patient of Dr. Peralta at [facility] and recently transitioned to Dr. Navarro with past medical history of c oronary artery disease status post CABG and stent 2 and aortic valve replacement, chronic persistent atrial fibrillation status post cardioversion,, hypertension, hyperlipidemia, diabetes mellitus type 2, Alzheimer dementia, neuro fibrosis, history of renal cancer status post left nephrectomy, melanoma. Patient had episode where he was found on the floor at [facility] unresponsive with a low blood pressure of 60/40. Patient did not have any cough or shortness of breath. He has known history as above. Patient has been a no code and no transfer to the hospital but family decided to send him in the hospital for evaluation. EKG was atrial fibrillation at rate of 121. Blood work revealed WBC 18, hemoglobin 17.2, platelet count 350. Chloride 108, CO2 9, BUN 119, creatinine 7.8, blood sugar 147. Initial lactic acid 2.6. Mosqueda catheter was placed and patient had no urine output. Chest x-ray showsshows acute posttraumatic changes. Slight vascular prominence. Correlate for dev eloping volume overload. Patient was given 2 L of IV fluids, Rocephin and admitted to the intensive care unit. Consults were added for Dr. Hicks and Dr. Noriega. Family does not plan for hemodialysis. 03/15: Patient remains in the intensive care unit but has not required vasopressors. He states he does not have any appetite. In general he is feeling much better from yesterday and looks much improved. Last evening he started having urine output around 5 PM. Urine is dark. He is currently on Invanz and vancomycin. Urinalysis revealed leukoesterase large, RBCs greater than 182, to be PVCs greater than 182, bacteria moderate. Covid 19 not detected. Digoxin level 0.4. Repeat lab work reveals improved leukocytosis 16.4, hemoglobin stable at 15.4, platelet count 251. Some improvement of his renal function with BUN of 121 and creatinine 6.22. CO2 is 13. Lactic acid remains elevated at 3.2. Patient has been seen by nephrology. Patient has been maintained on bicarb drip Renal ultrasound revealed nonobstructing renal stone in the right kidney. Right renal cyst. 03/16: Patient remains in intensive care unit. He has had significant improvement of his lab work. Bicarb drip discontinued today. The patient went into atrial fibrillation converted on amiodarone drip and cardiology consult added. Digoxin has been resumed and continued on Lopressor 50 mg twice daily. Patient has not required vasopressors. Echocardiogram reveals EF of 50-55%, mild aortic stenosis, mild mitral regurgitation, mild tricuspid regurgitation, small generalized pericardial effusion.Patient has been afebrile, heart rate 104, blood pressure 118/79, pulse ox 98% on room air. WBC 13.3, hemoglobin 15.1. Sodium 141, potassium 2.9, chloride 105, CO2 23, BUN 101, creatinine 3.17. Blood sugars running between 126 and 251. Potassium have been replaced. Magnesium 1.6. Patient is currently on vancomycin and Invanz. Blood culture positive for alphahemolytic strep and urine culture gram-negative bacilli. Anticipate discharge back to [facility] on Friday. Patient is cleared for transfer to the selective care unit. 03/17: Patient is seen today on the cardiac stepdown unit. Stool specimen was sent last evening for C. difficile toxin which came back negative. Fecal management system remains in place with output of brown liquid stool. Question will be added. Patient is eating very little and refused breakfast this morning. Patient is confused which is his baseline. Mosqueda catheter remains in place and urine output is clear marina. He remains in atrial fibrillation running in the 90s and low 100s. Blood pressure 125/86, pulse ox 98% on room air. Repeat blood work reveals potassium 3.1, chloride 110, BUN 79 creatinine 2.45. Blood sugars are running between 108 126. Patient remains on IV antibiotics of Invanz and vancomycin as directed by Dr. Hicks. IV fluids at 50 mL per hour per nephrology, potassium was replaced. Anticipate return to [facility] on Friday. [facility] liaison updated. Yesterday, patient had mild RVR and Lopressor was increased frequency to 3 times daily. 03/18: Patient is seen today on the cardiac stepdown unit. Patient continues to not eat very much. His mental status is at baseline with chronic confusion. He continues to have watery stool with fecal management system in place emptying 2 bags in the past 24 hours. No improvement with Questran and Imodium added. He has been afebrile, heart rate 104, blood pressure 122/87, pulse ox 96% on room air. Repeat blood work reveals sodium of 151, BUN 70 creatinine 2.27. Potassium 3.6, chloride 121, CO2 20. Blood sugar running between 112 and 148. Magnesium 2.6. IV fluids will be changed to D5 normal saline at 100 per hour until seen by nephrology. Blood culture alphahemolytic streptococcus. Urine culture is E. coli ESBL sensitive to ertapenem and vancomycin will be discontinued. Anticipate discharge to [facility] on Friday. 03/19: Patient's mental status is about the same from yesterday. His stools are not as clear but continued to be liquidy despite use of Questran and Imodium. Lactulose also added. Patient is continued on ertapenem. He has been afebrile, blood pressure 120/74 and pulse ox 96% on room air. He has had elevated heart rate of 160 came down to 130s prior to metoprolol dose. He is currently on Lopressor 50 mg 3 times daily. Repeat blood work reveals WBC 14.4, hemoglobin 17.1. Sodium normal at 139, potassium 4.4, chloride 110, CO2 22, BUN 19 and creatinine 0.76. Blood sugars running between 70 and 292. Osmolality 338, urine osmolality 542. Review of Systems Constitutional: No fever, no chills, no documented fever. Reports weakness, reports fatigue reports lethargy. Reports poor appetite. EENT: No headache. Chronic vision changes, chronic hearing loss. No epistaxis. No sore throat. Lungs: No shortness of breath, cough, no sputum production. No wheezing. Cardiovascular: No chest pain, no lower extremity edema. No palpitations. No paroxysmal nocturnal dyspnea. No orthopnea. No lightheadedness or dizziness. No syncopal episodes. Abdominal: No abdominal pain. No nausea, vomiting. Reports continued profuse diarrhea. No constipation. No bloody or tarry stools. Genitourinary: No dysuria, increased frequency, urgency. No urinary retention. Mosqueda catheter in place Musculoskeletal: No myalgias. Reports muscle weakness, reports gait dysfunction. Integumentary: No wounds, no lesions. No rash or pruritus. Neurologic: No aphasia. No facial droop. Reports change in mentation. Underlying dementia. Psychiatric: No depression. No anxiety. No mood swings. Endocrine: No abnormal blood sugars. No weight change. Physical Examination Gen: This is an 84-year-old male. He is resting in bed and appears to be comfortable and in no acute distress HEENT: Head is atraumatic, normocephalic. Pupils equal, round. Sclerae is anicteric. NECK: Supple. No JVD. No lymphadenopathy. No thyromegaly. LUNGS: Clear to auscultation. No wheezes or rhonchi. No intercostal retrac tions. HEART: Irregularly irregular, systolic murmur. ABDOMEN: Soft. Bowel sounds are present. No masses. No tenderness. Mosqueda catheter draining clear marina urine. Fecal management system in place with brown liquid return. EXTREMITIES: No pedal edema. No calf tenderness. NEUROLOGICAL: Patient is awake, alert and oriented to person. Generalized weakness noted. Assessment and Plan 1. Acute kidney injury with severe metabolic acidosis and hypotension. Consults with club steward and nephrology appreciated. Patient has not required vasopressors. Continue IV fluids. 2. Acute kidney injury secondary to ATN. Monitor I&O. Monitor renal function. Metformin, lisinopril on hold. 3. Chronic persistent atrial fibrillation presenting with RVR. Continue digoxin 125 g daily, Lopressor 50 mg increased to 3 times daily, eliquis 2.5 mg twice daily. Off amiodarone drip. 4. Leukocytosis and sepsis secondary to ESBL E. coli UTI, present on admission. Continue Invanz and discontinue vancomycin. 5. History of coronary artery disease status post CABG and stent placement as well as aortic valve replacement. Continue aspirin 81 mg daily and Lopressor. 6. Diabetes mellitus type 2, insulin requiring. Levemir increased to 26 units at bedtime, NovoLog scale before meals and at bedtime. 7. Alzheimer's dementia. Continue Namenda 7.5 mg daily. 8. Hypertension. Continue Lopressor. 9. Hyperlipidemia. Patient not on statin. 10. Neuro fibrosis, stable. 11. History of renal cancer status post nephrectomy with chronic kidney disease stage III. 12. COVID-19 infection not present. 13. Mild hyperphosphatemia secondary to acute kidney injury. 14. Diarrhea most likely secondary to antibiotics. C. difficile toxin not detected. Not improved with Questran. Imodium added scheduled 4 times daily. Add lactobacillus twice daily. 15. Hypernatremia due to profuse diarrhea. CODE STATUS: No code Discharge plan: Return to [facility] on Friday or Friday Impression and plan of care have been directed as dictated by the signing physician. Suzy Choi nurse practitioner acting as scribe for signing physician. Objective - Vital Signs Vital signs: Vital Signs Temp 97.8 F 03/19/20 08:42 Pulse 138 H 03/19/20 08:42 Resp 20 03/19/20 08:42 BP 120/74 03/19/20 08:42 Pulse Ox 96 03/19/20 08:42 Intake & Output 03/18/20 03/19/20 03/19/20 18:59 06:59 18:59 Intake Total 908 400 100 Output Total 1300 3500 500 Balance -392 -3100 -400 Weight 94.7 kg 165 kg Intake: IV 250 400 10 Dextrose 5%-0.9% NaCl 1, 200 400 000 ml @ 100 mls/hr IV . Q10H [facility] Rx#:[id number] Ertapenem 0.5 gm In 50 Sodium Chloride 0.9% 50 ml @ 100 mls/hr IVPB DAILY [facility] Rx#:[id number] Invasive Line 4 10 Oral 658 90 Output: Urine 700 Stool 1300 2800 500 Other: Voiding Method Indwelling Catheter Indwelling Catheter Indwelling Catheter # Voids 300 # Bowel Movements 2 - Labs CBC & Chem 7: 03/19/20 07:14 03/19/20 07:14 Labs: Abnormal Lab Results - Last 24 Hours (Table) 03/18/20 03/18/20 03/18/20 Range/Units 12:50 16:30 17:07 WBC (3.8-10.6) k/uL RDW (11.5-15.5) % POC Glucose (mg/dL) 176 H 163 H (75-99) mg/dL Osmolality (280-301) mosm/kg Urine Protein 1+ H (Negative) Urine Blood Small H (Negative) Ur Leukocyte Esterase Small H (Negative) Amorphous Sediment Rare H (None) /hpf Urine Bacteria Occasional H (None) /hpf Urine Mucus Rare H (None) /hpf 03/18/20 03/19/20 03/19/20 Range/Units 20:26 06:02 07:14 WBC 14.4 H (3.8-10.6) k/uL RDW 15.6 H (11.5-15.5) % POC Glucose (mg/dL) 292 H 70 L (75-99) mg/dL Osmolality (280-301) mosm/kg Urine Protein (Negative) Urine Blood (Negative) Ur Leukocyte Esterase (Negative) Amorphous Sediment (None) /hpf Urine Bacteria (None) /hpf Urine Mucus (None) /hpf 03/19/20 Range/Units 07:14 WBC (3.8-10.6) k/uL RDW (11.5-15.5) % POC Glucose (mg/dL) (75-99) mg/dL Osmolality 338 H* (280-301) mosm/kg Urine Protein (Negative) Urine Blood (Negative) Ur Leukocyte Esterase (Negative) Amorphous Sediment (None) /hpf Urine Bacteria (None) /hpf Urine Mucus (None) /hpf
[2020-03-19] MEDS ORDERED: METOPROLOL TARTRATE 25 MG TAB PO STA (12:55)
--- NOTE | 2020-03-19 13:06 | P.PN ---
Subjective Progress Note Date: 03/19/20 Follow-up for acute kidney injury. Still persistent diarrhea. No nausea vomiting. Decreased oral intake. Urine output of 4.8 L in the last 24 hours. Objective - Vital Signs Vital signs: Vital Signs Temp 97.8 F 03/19/20 08:42 Pulse 138 H 03/19/20 08:42 Resp 20 03/19/20 08:42 BP 120/74 03/19/20 08:42 Pulse Ox 96 03/19/20 08:42 Intake & Output 03/18/20 03/19/20 03/19/20 18:59 06:59 18:59 Intake Total 908 400 100 Output Total 1300 3500 500 Balance -392 -3100 -400 Weight 94.7 kg 165 kg Intake: IV 250 400 10 Dextrose 5%-0.9% NaCl 1, 200 400 000 ml @ 100 mls/hr IV . Q10H [facility] Rx#:[id number] Ertapenem 0.5 gm In 50 Sodium Chloride 0.9% 50 ml @ 100 mls/hr IVPB DAILY [facility] Rx#:[id number] Invasive Line 4 10 Oral 658 90 Output: Urine 700 Stool 1300 2800 500 Other: Voiding Method Indwelling Catheter Indwelling Catheter Indwelling Catheter # Voids 300 0 # Bowel Movements 2 - Exam No acute distress S1-S2 heard Lungs clear Abdomen soft, Mosqueda catheter No edema - Labs CBC & Chem 7: 03/19/20 07:14 03/19/20 07:14 Labs: Abnormal Lab Results - Last 24 Hours (Table) 03/18/20 03/18/20 03/18/20 Range/Units 16:30 17:07 20:26 WBC (3.8-10.6) k/uL RDW (11.5-15.5) % Chloride (98-107) mmol/L POC Glucose (mg/dL) 163 H 292 H (75-99) mg/dL Osmolality (280-301) mosm/kg Calcium (8.4-10.2) mg/dL Total Protein (6.3-8.2) g/dL Albumin (3.5-5.0) g/dL Urine Protein 1+ H (Negative) Urine Blood Small H (Negative) Ur Leukocyte Esterase Small H (Negative) Amorphous Sediment Rare H (None) /hpf Urine Bacteria Occasional H (None) /hpf Urine Mucus Rare H (None) /hpf 03/19/20 03/19/20 03/19/20 Range/Units 06:02 07:14 07:14 WBC 14.4 H (3.8-10.6) k/uL RDW 15.6 H (11.5-15.5) % Chloride 110 H (98-107) mmol/L POC Glucose (mg/dL) 70 L (75-99) mg/dL Osmolality 338 H* (280-301) mosm/kg Calcium 8.3 L (8.4-10.2) mg/dL Total Protein 6.0 L (6.3-8.2) g/dL Albumin 3.4 L (3.5-5.0) g/dL Urine Protein (Negative) Urine Blood (Negative) Ur Leukocyte Esterase (Negative) Amorphous Sediment (None) /hpf Urine Bacteria (None) /hpf Urine Mucus (None) /hpf Assessment and Plan Assessment: #1 nonoliguric acute kidney injury secondary to ischemic ATN. Creatinine on admission 7.8 MG per DL improving to 0.76 MG per DL today. #2 chronic kidney disease stage III secondary to nephrosclerosis baseline creatinine of 0.8-1.3 MG per DL. #3 polyuria secondary to diuretic phase of ATN. #4 hyponatremia secondary to polyuria/diarrhea and decreased by mouth intake #5 hypokalemia secondary to renal loss of potassium #6 diarrhea, C. diff negative. #7 non-anion gap metabolic acidosis secondary to hyperchloremia. Plan: #1 renal function stable back to baseline. #2 replace serum osmolality out of proportion at high to the serum sodium. #3 add normal saline at 50 ML's an hour.
[2020-03-19] MEDS: APIXABAN 2.5 MG TABLET PO SCH ×2 (13:33→22:51)
[2020-03-19] MEDS: SODIUM CHLORIDE 0.9% 1,000 ML IV SCH (15:00)
[2020-03-19 17:22] LABS: Glucose,Whole Blood 143 mg/dL (75-99)
[2020-03-19 20:30] LABS: Glucose,Whole Blood 149 mg/dL (75-99)
[2020-03-19] MEDS ORDERED: ERTAPENEM 1 GM in SODIUM CHLORIDE 0.9% 50 ML IVPB SCH (21:00)
[2020-03-19] MEDS: INSULIN DETEMIR (LEVEMIR) 100 UNIT/ML SYR SQ SCH (22:52)
[2020-03-20 06:19] LABS: Glucose,Whole Blood 57 mg/dL (75-99)
[2020-03-20 06:29] LABS: HCT 50.5 % (39.0-53.0); HGB 15.5 gm/dL (13.0-17.5); Hypochromasia Slight; MCH 28.8 pg (25.0-35.0); MCHC 30.7 g/dL (31.0-37.0); MCV 93.8 fL (80.0-100.0); Mean Platelet Volume 9.5; Platelet Count 240 k/uL (150-450); RBC 5.38 m/uL (4.30-5.90); RDW 15.7 % (11.5-15.5); WBC 17.3 k/uL (3.8-10.6)
[2020-03-20 06:34] LABS: Albumin 2.6 g/dL (3.5-5.0); Calcium 8.3 mg/dL (8.4-10.2); Potassium 3.9 mmol/L (3.5-5.1); Total Bilirubin 0.4 mg/dL (0.2-1.3); Total Protein 6.3 g/dL (6.3-8.2)
[2020-03-20 06:46] LABS: Glucose,Whole Blood 54 mg/dL (75-99)
[2020-03-20 07:08] LABS: Glucose,Whole Blood 67 mg/dL (75-99)
[2020-03-20 07:13] LABS: Glucose,Whole Blood 76 mg/dL (75-99)
[2020-03-20] MEDS: INSULIN ASPART (NovoLOG) 100 UNIT/ML VIAL SQ SCH ×3 (07:42→17:53)
[2020-03-20 07:57] LABS: Glucose,Whole Blood 81 mg/dL (75-99)
[2020-03-20] MEDS: LACTOBACILLUS ACIDOPH & BULGAR 1 EACH PACKET PO SCH (08:11)
[2020-03-20] MEDS: NYSTATIN 100,000 UNIT/ML SUSP 500,000 UNIT/5 ML CUP PO SCH ×3 (08:12→17:19)
[2020-03-20] MEDS: METOPROLOL TARTRATE 50 MG TAB PO SCH ×3 (08:12→22:30)
[2020-03-20] MEDS: ASPIRIN 81 MG PO SCH (08:12)
[2020-03-20] MEDS: VENLAFAXINE HCL ER 75 MG CAP PO SCH (08:12)
[2020-03-20] MEDS: RIVASTIGMINE 4.6MG/24HR PATCH TRANSDERM SCH (08:12)
[2020-03-20] MEDS: LOPERAMIDE 2 MG CAP PO SCH ×4 (08:12→22:30)
[2020-03-20] MEDS: DIGOXIN 125 MCG TAB PO SCH (08:12)
[2020-03-20] MEDS: MEMANTINE 5 MG TAB PO SCH (08:12)
[2020-03-20] MEDS: APIXABAN 2.5 MG TABLET PO SCH ×2 (08:13→22:31)
[2020-03-20] MEDS ORDERED: DEXTROSE 5%-LACTATED RINGERS 1,000 ML IV SCH (08:15)
[2020-03-20] MEDS: CHOLESTYRAMINE (WITH SUGAR) 4 GM PACKET PO SCH ×2 (08:16→17:18)
[2020-03-20] MEDS: SODIUM CHLORIDE 0.9% 1,000 ML IV SCH (08:18)
[2020-03-20] MEDS ORDERED: DEXTROSE 5% IN WATER 1,000 ML IV ONE (11:40)
--- NOTE | 2020-03-20 12:05 | PN ---
PROGRESS NOTE Patient is seen for followup for acute kidney injury. His renal function has been improving with creatinine down from 7.8 on initial admission to 2.6 now. The patient's sodium was elevated and he was 155 this morning. Yesterday, his serum sodium was 139. Currently patient is not eating much. His blood sugars have also been on the lower side. PHYSICAL EXAMINATION: Blood pressure this morning 124/72, heart rate 103 per minute. He is afebrile. Examination of the heart S1, S2. Examination of the lungs, bilateral breath sounds are heard. Abdomen is soft, nontender. Examination of lower extremities shows no significant edema. OVERLOCKER exam grossly intact. LABS: Show sodium 155, potassium 3.9, chloride 128, CO2 is 19, BUN 57, creatinine 2.6, hemoglobin 15.5 g/dL. ASSESSMENT: 1. Acute kidney injury, acute tubular necrosis, currently significantly improved. Continue to monitor renal function. Avoid nephrotoxic agents. The creatinine of 0.76 was an error. 2. Chronic kidney disease stage III. Baseline creatinine about 1.3 mg/dL. 3. Hypernatremia associated with polyuria and diarrhea and free water deficit. 4. Diarrhea. Clostridium difficile toxin is negative. The patient continues to have loose bowel movements. 5. Non-gap metabolic acidosis, associated with diarrhea and renal failure, now improving. PLAN: Switch IV fluids to D5W and repeat sodium in 6 hours. DC the normal saline. MMODL / IJN: [id number] /
[2020-03-20 12:08] LABS: Glucose,Whole Blood 118 mg/dL (75-99)
--- NOTE | 2020-03-20 13:26 | P.PN ---
Subjective Progress Note Date: 03/20/20 History of Present Illness This is an 84-year-old male previously a patient of Dr. Peralta at [facility] and recently transitioned to Dr. Navarro with past medical history of c oronary artery disease status post CABG and stent 2 and aortic valve replacement, chronic persistent atrial fibrillation status post cardioversion,, hypertension, hyperlipidemia, diabetes mellitus type 2, Alzheimer dementia, neuro fibrosis, history of renal cancer status post left nephrectomy, melanoma. Patient had episode where [facility] with a low blood pressure of 60/40. Patient did not have any cough or shortness of breath. He has known history as above. Patient has been a no code and no transfer to the hospital but family decided to send him in the hospital for evaluation. EKG was atrial fibrillation at rate of 121. Blood work revealed WBC 18, hemoglobin 17.2, platelet count 350. Chloride 108, CO2 9, BUN 119, creatinine 7.8, blood sugar 147. Initial lactic acid 2.6. Mosqueda catheter was placed and patient had no urine output. Chest x-ray showsshows acute posttraumatic changes. Slight vascular prominence. Correlate for dev eloping volume overload. Patient was given 2 L of IV fluids, Rocephin and admitted to the intensive care unit. Consults were added for Dr. Hicks and Dr. Noriega. Family does not plan for hemodialysis. 03/15: Patient remains in the intensive care unit but has not required vasopressors. He states he does not have any appetite. In general he is feeling much better from yesterday and looks much improved. Last evening he started having urine output around 5 PM. Urine is dark. He is currently on Invanz and vancomycin. Urinalysis revealed leukoesterase large, RBCs greater than 182, to be PVCs greater than 182, bacteria moderate. Covid 19 not detected. Digoxin level 0.4. Repeat lab work reveals improved leukocytosis 16.4, hemoglobin stable at 15.4, platelet count 251. Some improvement of his renal function with BUN of 121 and creatinine 6.22. CO2 is 13. Lactic acid remains elevated at 3.2. Patient has been seen by nephrology. Patient has been maintained on bicarb drip Renal ultrasound revealed nonobstructing renal stone in the right kidney. Right renal cyst. 03/16: Patient remains in intensive care unit. He has had significant improvement of his lab work. Bicarb drip discontinued today. The patient went into atrial fibrillation converted on amiodarone drip and cardiology consult added. Digoxin has been resumed and continued on Lopressor 50 mg twice daily. Patient has not required vasopressors. Echocardiogram reveals EF of 50-55%, mild aortic stenosis, mild mitral regurgitation, mild tricuspid regurgitation, small generalized pericardial effusion.Patient has been afebrile, heart rate 104, blood pressure 118/79, pulse ox 98% on room air. WBC 13.3, hemoglobin 15.1. Sodium 141, potassium 2.9, chloride 105, CO2 23, BUN 101, creatinine 3.17. Blood sugars running between 126 and 251. Potassium have been replaced. Magnesium 1.6. Patient is currently on vancomycin and Invanz. Blood culture positive for alphahemolytic strep and urine culture gram-negative bacilli. Anticipate discharge back to [facility] on Friday. Patient is cleared for transfer to the selective care unit. 03/17: Patient is seen today on the cardiac stepdown unit. Stool specimen was sent last evening for C. difficile toxin which came back negative. Fecal management system remains in place with output of brown liquid stool. Question will be added. Patient is eating very little and refused breakfast this morning. Patient is confused which is his baseline. Mosqueda catheter remains in place and urine output is clear marina. He remains in atrial fibrillation running in the 90s and low 100s. Blood pressure 125/86, pulse ox 98% on room air. Repeat blood work reveals potassium 3.1, chloride 110, BUN 79 creatinine 2.45. Blood sugars are running between 108 126. Patient remains on IV antibiotics of Invanz and vancomycin as directed by Dr. Hicks. IV fluids at 50 mL per hour per nephrology, potassium was replaced. Anticipate return to [facility] on Friday. [facility] liaison updated. Yesterday, patient had mild RVR and Lopressor was increased frequency to 3 times daily. 03/18: Patient is seen today on the cardiac stepdown unit. Patient continues to not eat very much. His mental status is at baseline with chronic confusion. He continues to have watery stool with fecal management system in place emptying 2 bags in the past 24 hours. No improvement with Questran and Imodium added. He has been afebrile, heart rate 104, blood pressure 122/87, pulse ox 96% on room air. Repeat blood work reveals sodium of 151, BUN 70 creatinine 2.27. Potassium 3.6, chloride 121, CO2 20. Blood sugar running between 112 and 148. Magnesium 2.6. IV fluids will be changed to D5 normal saline at 100 per hour until seen by nephrology. Blood culture alphahemolytic streptococcus. Urine culture is E. coli ESBL sensitive to ertapenem and vancomycin will be discontinued. Anticipate discharge to [facility] on Friday. 03/19: Patient's mental status is about the same from yesterday. His stools are not as clear but continued to be liquidy despite use of Questran and Imodium. Lactulose also added. Patient is continued on ertapenem. He has been afebrile, blood pressure 120/74 and pulse ox 96% on room air. He has had elevated heart rate of 160 came down to 130s prior to metoprolol dose. He is currently on Lopressor 50 mg 3 times daily. Repeat blood work reveals WBC 14.4, hemoglobin 17.1. Sodium normal at 139, potassium 4.4, chloride 110, CO2 22, BUN 19 and creatinine 0.76. Blood sugars running between 70 and 292. Osmolality 338, urine osmolality 542. 03/20: Patient continues to have liquid stool through fecal management system although volume has decreased. He is currently on Imodium scheduled 4 times a day, Questran twice daily, lactobacillus daily. Patient also is on IV antibiotics with ertapenem. Appetite seems to be improving and patient is eating 50-100% of meals and snacks. He has afebrile, heart rate 95, blood pressure 130/80, pulse ox 95% on room air. Heart rate is better controlled today with increase in metoprolol yesterday. Blood sugar was low this morning and adjustment made to insulin. If diarrhea improves by tomorrow, plan for r eturn to [facility]. Review of Systems Constitutional: No fever, no chills, no documented fever. Reports weakness, reports fatigue reports lethargy. Reports poor appetite. EENT: No headache. Chronic vision changes, chronic hearing loss. No epistaxis. No sore throat. Lungs: No shortness of breath, cough, no sputum production. No wheezing. Cardiovascular: No chest pain, no lower extremity edema. No palpitations. No paroxysmal nocturnal dyspnea. No orthopnea. No lightheadedness or dizziness. No syncopal episodes. Abdominal: No abdominal pain. No nausea, vomiting. Reports diarrhea. No constipation. No bloody or tarry stools. Genitourinary: No dysuria, increased frequency, urgency. No urinary retention. Mosqueda catheter in place Musculoskeletal: No myalgias. Reports muscle weakness, reports gait dysfunction. Integumentary: No wounds, no lesions. No rash or pruritus. Neurologic: No aphasia. No facial droop. Reports change in mentation. Underlying dementia. Psychiatric: No depression. No anxiety. No mood swings. Endocrine: Reported abnormal blood sugars. No weight change. Physical Examination Gen: This is an 84-year-old male. He is resting in bed and appears to be comfortable and in no acute distress HEENT: Head is atraumatic, normocephalic. Pupils equal, round. Sclerae is anicteric. NECK: Supple. No JVD. No lymphadenopathy. No thyromegaly. LUNGS: Clear to auscultation. No wheezes or rhonchi. No intercostal retractions. HEART: Irregularly irregular, systolic murmur. ABDOMEN: Soft. Bowel sounds are present. No masses. No tenderness. Mosqueda catheter draining clear marina urine. Fecal management system in place with brown liquid return. EXTREMITIES: No pedal edema. No calf tenderness. NEUROLOGICAL: Patient is awake, alert and oriented to person. Generalized weakness noted. Assessment and Plan 1. Acute kidney injury with severe metabolic acidosis and hypotension. Consults with wood carving lathe operator and nephrology appreciated. Patient has not required vasopressors. Continue IV fluids. 2. Acute kidney injury secondary to ATN. Monitor I&O. Monitor renal function. Metformin, lisinopril on hold. 3. Chronic persistent atrial fibrillation presenting with RVR. Continue digoxin 125 g daily, Lopressor 50 mg 3 times daily, eliquis 2.5 mg twice daily. Off amiodarone drip. 4. Leukocytosis and sepsis secondary to ESBL E. coli UTI, present on admission. Continue Invanz and discontinue vancomycin. 5. History of coronary artery disease status post CABG and stent placement as well as aortic valve replacement. Continue aspirin 81 mg daily and Lopressor. 6. Diabetes mellitus type 2, insulin requiring. Levemir decreased to 18 units at bedtime, NovoLog scale before meals and at bedtime. 7. Alzheimer's dementia. Continue Namenda 7.5 mg daily. 8. Hypertension. Continue Lopressor. 9. Hyperlipidemia. Patient not on statin. 10. Neuro fibrosis, stable. 11. History of renal cancer status post nephrectomy with chronic kidney disease stage III. 12. COVID-19 infection not present. 13. Mild hyperphosphatemia secondary to acute kidney injury. 14. Diarrhea most likely secondary to antibiotics. C. difficile toxin not detected. Not improved with Questran. Imodium added scheduled 4 times daily. Add lactobacillus twice daily. 15. Hypernatremia due to profuse diarrhea. CODE STATUS: No code Discharge plan: Return to [facility] on Friday or Friday Impression and plan of care have been directed as dictated by the signing physician. Suzy Choi nurse practitioner acting as scribe for signing physician. Objective - Vital Signs Vital signs: Vital Signs Temp 97.9 F 03/20/20 08:08 Pulse 103 H 03/20/20 08:08 Resp 18 03/20/20 08:11 BP 124/72 03/20/20 08:08 Pulse Ox 95 03/20/20 08:08 Intake & Output 03/19/20 03/20/20 03/20/20 18:59 06:59 18:59 Intake Total 660 30 10 Output Total 1400 1675 Balance -740 -1645 10 Weight 160 kg Intake: IV 30 30 10 Invasive Line 4 30 30 10 Oral 630 Output: Urine 200 675 Stool 1200 1000 Other: Voiding Method Indwelling Catheter Indwelling Catheter Indwelling Catheter # Voids 0 - Labs CBC & Chem 7: 03/20/20 05:23 03/20/20 05:23 Labs: Abnormal Lab Results - Last 24 Hours (Table) 03/19/20 03/19/20 03/19/20 Range/Units 07:14 07:14 12:10 WBC 14.4 H (3.8-10.6) k/uL MCHC (31.0-37.0) g/dL RDW 15.6 H (11.5-15.5) % Sodium (137-145) mmol/L Chloride 110 H (98-107) mmol/L Carbon Dioxide (22-30) mmol/L BUN (9-20) mg/dL Creatinine (0.66-1.25) mg/dL Glucose (74-99) mg/dL POC Glucose (mg/dL) (75-99) mg/dL Osmolality 338 H* 342 H* (280-301) mosm/kg Calcium 8.3 L (8.4-10.2) mg/dL AST (17-59) U/L Total Protein 6.0 L (6.3-8.2) g/dL Albumin 3.4 L (3.5-5.0) g/dL 03/19/20 03/19/20 03/20/20 Range/Units 17:01 20:29 05:23 WBC 17.3 H (3.8-10.6) k/uL MCHC 30.7 L (31.0-37.0) g/dL RDW 15.7 H (11.5-15.5) % Sodium (137-145) mmol/L Chloride (98-107) mmol/L Carbon Dioxide (22-30) mmol/L BUN (9-20) mg/dL Creatinine (0.66-1.25) mg/dL Glucose (74-99) mg/dL POC Glucose (mg/dL) 143 H 149 H (75-99) mg/dL Osmolality (280-301) mosm/kg Calcium (8.4-10.2) mg/dL AST (17-59) U/L Total Protein (6.3-8.2) g/dL Albumin (3.5-5.0) g/dL 03/20/20 03/20/20 03/20/20 Range/Units 05:23 06:17 06:35 WBC (3.8-10.6) k/uL MCHC (31.0-37.0) g/dL RDW (11.5-15.5) % Sodium 155 H (137-145) mmol/L Chloride 128 H (98-107) mmol/L Carbon Dioxide 19 L (22-30) mmol/L BUN 57 H (9-20) mg/dL Creatinine 2.60 H (0.66-1.25) mg/dL Glucose 54 L (74-99) mg/dL POC Glucose (mg/dL) 57 L 54 L (75-99) mg/dL Osmolality (280-301) mosm/kg Calcium 8.3 L (8.4-10.2) mg/dL AST 15 L (17-59) U/L Total Protein (6.3-8.2) g/dL Albumin 2.6 L (3.5-5.0) g/dL 03/20/20 Range/Units 06:56 WBC (3.8-10.6) k/uL MCHC (31.0-37.0) g/dL RDW (11.5-15.5) % Sodium (137-145) mmol/L Chloride (98-107) mmol/L Carbon Dioxide (22-30) mmol/L BUN (9-20) mg/dL Creatinine (0.66-1.25) mg/dL Glucose (74-99) mg/dL POC Glucose (mg/dL) 67 L (75-99) mg/dL Osmolality (280-301) mosm/kg Calcium (8.4-10.2) mg/dL AST (17-59) U/L Total Protein (6.3-8.2) g/dL Albumin (3.5-5.0) g/dL
[2020-03-20 17:38] LABS: Glucose,Whole Blood 108 mg/dL (75-99)
[2020-03-20 20:41] LABS: Glucose,Whole Blood 159 mg/dL (75-99)
[2020-03-20] MEDS: ERTAPENEM 0.5 GM in SODIUM CHLORIDE 0.9% 50 ML IVPB SCH (22:31)
[2020-03-21 04:43] VITALS: RESP 18
[2020-03-21 05:48] LABS: HCT 46.7 % (39.0-53.0); HGB 14.9 gm/dL (13.0-17.5); Hypochromasia Moderate; MCH 30.2 pg (25.0-35.0); MCV 94.4 fL (80.0-100.0); Mean Platelet Volume 10.2; Platelet Count 207 k/uL (150-450); RBC 4.94 m/uL (4.30-5.90); RDW 15.5 % (11.5-15.5); WBC 18.3 k/uL (3.8-10.6)
[2020-03-21 05:52] LABS: Glucose,Whole Blood 152 mg/dL (75-99)
[2020-03-21 05:55] LABS: Albumin 2.4 g/dL (3.5-5.0); Calcium 8.1 mg/dL (8.4-10.2); Potassium 3.9 mmol/L (3.5-5.1); Total Bilirubin 0.5 mg/dL (0.2-1.3); Total Protein 6.1 g/dL (6.3-8.2)
[2020-03-21] MEDS: INSULIN ASPART (NovoLOG) 100 UNIT/ML VIAL SQ SCH ×5 (06:41→20:50)
[2020-03-21] MEDS: NYSTATIN 100,000 UNIT/ML SUSP 500,000 UNIT/5 ML CUP PO SCH ×5 (06:43→20:53)
[2020-03-21] MEDS: INSULIN DETEMIR (LEVEMIR) 100 UNIT/ML SYR SQ SCH ×2 (06:43→20:54)
[2020-03-21] MEDS: SODIUM CHLORIDE 0.9% 1,000 ML IV SCH (06:44)
[2020-03-21] MEDS: ASPIRIN 81 MG PO SCH (09:02)
[2020-03-21] MEDS: VENLAFAXINE HCL ER 75 MG CAP PO SCH (09:02)
[2020-03-21] MEDS: LOPERAMIDE 2 MG CAP PO SCH ×4 (09:02→20:53)
[2020-03-21] MEDS: APIXABAN 2.5 MG TABLET PO SCH ×2 (09:02→20:54)
[2020-03-21] MEDS: METOPROLOL TARTRATE 50 MG TAB PO SCH ×3 (09:03→20:53)
[2020-03-21] MEDS: MEMANTINE 5 MG TAB PO SCH (09:03)
[2020-03-21] MEDS: DIGOXIN 125 MCG TAB PO SCH (09:03)
[2020-03-21] MEDS: LACTOBACILLUS ACIDOPH & BULGAR 1 EACH PACKET PO SCH (09:03)
[2020-03-21] MEDS: RIVASTIGMINE 4.6MG/24HR PATCH TRANSDERM SCH (09:03)
[2020-03-21] MEDS: CHOLESTYRAMINE (WITH SUGAR) 4 GM PACKET PO SCH ×2 (09:03→15:45)
[2020-03-21] MEDS: DEXTROSE 5% IN WATER 1,000 ML IV SCH ×2 (09:11→15:45)
--- NOTE | 2020-03-21 10:25 | P.PN ---
Subjective Progress Note Date: 03/21/20 History of Present Illness This is an 84-year-old male previously a patient of Dr. Peralta at [facility] and recently transitioned to Dr. Navarro with past medical history of c oronary artery disease status post CABG and stent 2 and aortic valve replacement, chronic persistent atrial fibrillation status post cardioversion,, hypertension, hyperlipidemia, diabetes mellitus type 2, Alzheimer dementia, neuro fibrosis, history of renal cancer status post left nephrectomy, melanoma. Patient had episode where he was found on the floor at the [facility] unresponsive with a low blood pressure of 60/40. Patient did not have any cough or shortness of breath. He has known history as above. Patient has been a no code and no transfer to the hospital but family decided to send him in the hospital for evaluation. EKG was atrial fibrillation at rate of 121. Blood work revealed WBC 18, hemoglobin 17.2, platelet count 350. Chloride 108, CO2 9, BUN 119, creatinine 7.8, blood sugar 147. Initial lactic acid 2.6. Mosqueda catheter was placed and patient had no urine output. Chest x-ray showsshows acute posttraumatic changes. Slight vascular prominence. Correlate for dev eloping volume overload. Patient was given 2 L of IV fluids, Rocephin and admitted to the intensive care unit. Consults were added for Dr. Hicks and Dr. Noriega. Family does not plan for hemodialysis. 03/15: Patient remains in the intensive care unit but has not required vasopressors. He states he does not have any appetite. In general he is feeling much better from yesterday and looks much improved. Last evening he started having urine output around 5 PM. Urine is dark. He is currently on Invanz and vancomycin. Urinalysis revealed leukoesterase large, RBCs greater than 182, to be PVCs greater than 182, bacteria moderate. Covid 19 not detected. Digoxin level 0.4. Repeat lab work reveals improved leukocytosis 16.4, hemoglobin stable at 15.4, platelet count 251. Some improvement of his renal function with BUN of 121 and creatinine 6.22. CO2 is 13. Lactic acid remains elevated at 3.2. Patient has been seen by nephrology. Patient has been maintained on bicarb drip Renal ultrasound revealed nonobstructing renal stone in the right kidney. Right renal cyst. 03/16: Patient remains in intensive care unit. He has had significant improvement of his lab work. Bicarb drip discontinued today. The patient went into atrial fibrillation converted on amiodarone drip and cardiology consult added. Digoxin has been resumed and continued on Lopressor 50 mg twice daily. Patient has not required vasopressors. Echocardiogram reveals EF of 50-55%, mild aortic stenosis, mild mitral regurgitation, mild tricuspid regurgitation, small generalized pericardial effusion.Patient has been afebrile, heart rate 104, blood pressure 118/79, pulse ox 98% on room air. WBC 13.3, hemoglobin 15.1. Sodium 141, potassium 2.9, chloride 105, CO2 23, BUN 101, creatinine 3.17. Blood sugars running between 126 and 251. Potassium have been replaced. Magnesium 1.6. Patient is currently on vancomycin and Invanz. Blood culture positive for alphahemolytic strep and urine culture gram-negative bacilli. Anticipate discharge back to [facility] on Friday. Patient is cleared for transfer to the selective care unit. 03/17: Patient is seen today on the cardiac stepdown unit. Stool specimen was sent last evening for C. difficile toxin which came back negative. Fecal management system remains in place with output of brown liquid stool. Question will be added. Patient is eating very little and refused breakfast this morning. Patient is confused which is his baseline. Mosqueda catheter remains in place and urine output is clear marina. He remains in atrial fibrillation running in the 90s and low 100s. Blood pressure 125/86, pulse ox 98% on room air. Repeat blood work reveals potassium 3.1, chloride 110, BUN 79 creatinine 2.45. Blood sugars are running between 108 126. Patient remains on IV antibiotics of Invanz and vancomycin as directed by Dr. Hicks. IV fluids at 50 mL per hour per nephrology, potassium was replaced. Anticipate return to [facility] on Friday. [facility] liaison updated. Yesterday, patient had mild RVR and Lopressor was increased frequency to 3 times daily. 03/18: Patient is seen today on the cardiac stepdown unit. Patient continues to not eat very much. His mental status is at baseline with chronic confusion. He continues to have watery stool with fecal management system in place emptying 2 bags in the past 24 hours. No improvement with Questran and Imodium added. He has been afebrile, heart rate 104, blood pressure 122/87, pulse ox 96% on room air. Repeat blood work reveals sodium of 151, BUN 70 creatinine 2.27. Potassium 3.6, chloride 121, CO2 20. Blood sugar running between 112 and 148. Magnesium 2.6. IV fluids will be changed to D5 normal saline at 100 per hour until seen by nephrology. Blood culture alphahemolytic streptococcus. Urine culture is E. coli ESBL sensitive to ertapenem and vancomycin will be discontinued. Anticipate discharge to [facility] on Friday. 03/19: Patient's mental status is about the same from yesterday. His stools are not as clear but continued to be liquidy despite use of Questran and Imodium. Lactulose also added. Patient is continued on ertapenem. He has been afebrile, blood pressure 120/74 and pulse ox 96% on room air. He has had elevated heart rate of 160 came down to 130s prior to metoprolol dose. He is currently on Lopressor 50 mg 3 times daily. Repeat blood work reveals WBC 14.4, hemoglobin 17.1. Sodium normal at 139, potassium 4.4, chloride 110, CO2 22, BUN 19 and creatinine 0.76. Blood sugars running between 70 and 292. Osmolality 338, urine osmolality 542. 03/20: Patient continues to have liquid stool through fecal management system although volume has decreased. He is currently on Imodium scheduled 4 times a day, Questran twice daily, lactobacillus daily. Patient also is on IV antibiotics with ertapenem. Appetite seems to be improving and patient is eating 50-100% of meals and snacks. He has afebrile, heart rate 95, blood pressure 130/80, pulse ox 95% on room air. Heart rate is better controlled today with increase in metoprolol yesterday. Blood sugar was low this morning and adjustment made to insulin. If diarrhea improves by tomorrow, plan for r eturn to [facility]. 03/21: Patient remains on the cardiac stepdown unit. He only had 500 ML's out of fecal management system yesterday and this will be removed today. We'll also plan to remove Mosqueda catheter and globe changer to condom catheter. Patient's mental status is at his baseline. Repeat lab work reveals WBC 18.3. Sodium 150, potassium 3.9, chloride 124, CO2 19, BUN 15 creatinine 2.28. Blood sugars are running between 108 and 173. Nephrology has ordered for IV fluids changed to D5W and repeat sodium in 6 hours. He has been afebrile, heart rate 81, blood pressure 114/75, pulse ox 97% on room air. Anticipate probable discharge to return to [facility] tomorrow. Liaison updated. Review of Systems Constitutional: No fever, no chills, no documented fever. Reports weakness, reports fatigue reports lethargy. Reports poor appetite. EENT: No headache. Chronic vision changes, chronic hearing loss. No epistaxis. No sore throat. Lungs: No shortness of breath, cough, no sputum production. No wheezing. Cardiovascular: No chest pain, no lower extremity edema. No palpitations. No paroxysmal nocturnal dyspnea. No orthopnea. No lightheadedness or dizziness. No syncopal episodes. Abdominal: No abdominal pain. No nausea, vomiting. Reports diarrhea-decreased. No constipation. No bloody or tarry stools. Genitourinary: No dysuria, increased frequency, urgency. No urinary retention. Mosqueda catheter in place Musculoskeletal: No myalgias. Reports muscle weakness, reports gait dysfunction. Integumentary: No wounds, no lesions. No rash or pruritus. Neurologic: No aphasia. No facial droop. Reports change in mentation. Underlying dementia. Psychiatric: No depression. No anxiety. No mood swings. Endocrine: Reported abnormal blood sugars. No weight change. Physical Examination Gen: This is an 84-year-old male. He is resting in bed and appears to be comfortable and in no acute distress HEENT: Head is atraumatic, normocephalic. Pupils equal, round. Sclerae is anicteric. NECK: Supple. No JVD. No lymphadenopathy. No thyromegaly. LUNGS: Clear to auscultation. No wheezes or rhonchi. No intercostal re tractions. HEART: Irregularly irregular, systolic murmur. ABDOMEN: Soft. Bowel sounds are present. No masses. No tenderness. Mosqueda catheter draining clear marina urine. Fecal management system in place with small amount brown liquid return. EXTREMITIES: No pedal edema. No calf tenderness. NEUROLOGICAL: Patient is awake, and oriented to person. Generalized weakness noted. Assessment and Plan 1. Acute kidney injury with severe metabolic acidosis and hypotension. Consults with fitness coordinator and nephrology appreciated. Patient has not required vasopressors. Continue IV fluids per nephrology. 2. Acute kidney injury secondary to ATN. Monitor I&O. Monitor renal function. Metformin, lisinopril on hold. 3. Chronic persistent atrial fibrillation presenting with RVR. Continue digoxin 125 g daily, Lopressor 50 mg 3 times daily, eliquis 2.5 mg twice daily. 4. Leukocytosis and sepsis secondary to ESBL E. coli UTI, present on admission. Continue Invanz and discontinue vancomycin. 5. History of coronary artery disease status post CABG and stent placement as well as aortic valve replacement. Continue aspirin 81 mg daily and Lopressor. 6. Diabetes mellitus type 2, insulin requiring. Levemir decreased to 18 units at bedtime, NovoLog scale before meals and at bedtime. 7. Alzheimer's dementia. Continue Namenda 7.5 mg daily. 8. Hypertension. Continue Lopressor. 9. Hyperlipidemia. Patient not on statin. 10. Neuro fibrosis, stable. 11. History of renal cancer status post nephrectomy with chronic kidney disease stage III. 12. COVID-19 infection not present. 13. Mild hyperphosphatemia secondary to acute kidney injury. 14. Diarrhea most likely secondary to antibiotics. C. difficile toxin not detected. Continue Questran, Imodium 4 times daily, lactobacillus twice daily. 15. Hypernatremia due to profuse diarrhea. CODE STATUS: No code Discharge plan: Return to [facility] on Friday Impression and plan of care have been directed as dictated by the signing physician. Suzy Choi nurse practitioner acting as scribe for signing physician. Objective - Vital Signs Vital signs: Vital Signs Temp 97.5 F L 03/21/20 04:00 Pulse 81 03/21/20 04:00 Resp 18 03/21/20 04:00 BP 114/75 03/21/20 04:00 Pulse Ox 97 03/21/20 04:00 Intake & Output 03/20/20 03/21/20 03/21/20 18:59 06:59 18:59 Intake Total 736 30 Output Total 975 1500 Balance -239 -1470 Intake: IV 30 30 Invasive Line 4 30 30 Oral 706 Output: Urine 975 1100 Uretheral (Mosqueda) 475 600 Stool 400 Other: Voiding Method Indwelling Catheter Indwelling Catheter # Voids 0 - Labs CBC & Chem 7: 03/21/20 05:27 03/21/20 05:27 Labs: Abnormal Lab Results - Last 24 Hours (Table) 03/20/20 03/20/20 03/20/20 Range/Units 12:03 14:02 17:33 WBC (3.8-10.6) k/uL Sodium 153 H (137-145) mmol/L Chloride (98-107) mmol/L Carbon Dioxide (22-30) mmol/L BUN (9-20) mg/dL Creatinine (0.66-1.25) mg/dL Glucose (74-99) mg/dL POC Glucose (mg/dL) 118 H 108 H (75-99) mg/dL Calcium (8.4-10.2) mg/dL Total Protein (6.3-8.2) g/dL Albumin (3.5-5.0) g/dL 03/20/20 03/21/20 03/21/20 Range/Units 20:39 05:27 05:27 WBC 18.3 H (3.8-10.6) k/uL Sodium 150 H (137-145) mmol/L Chloride 124 H (98-107) mmol/L Carbon Dioxide 19 L (22-30) mmol/L BUN 50 H (9-20) mg/dL Creatinine 2.28 H (0.66-1.25) mg/dL Glucose 173 H (74-99) mg/dL POC Glucose (mg/dL) 159 H (75-99) mg/dL Calcium 8.1 L (8.4-10.2) mg/dL Total Protein 6.1 L (6.3-8.2) g/dL Albumin 2.4 L (3.5-5.0) g/dL 03/21/20 Range/Units 05:50 WBC (3.8-10.6) k/uL Sodium (137-145) mmol/L Chloride (98-107) mmol/L Carbon Dioxide (22-30) mmol/L BUN (9-20) mg/dL Creatinine (0.66-1.25) mg/dL Glucose (74-99) mg/dL POC Glucose (mg/dL) 152 H (75-99) mg/dL Calcium (8.4-10.2) mg/dL Total Protein (6.3-8.2) g/dL Albumin (3.5-5.0) g/dL
[2020-03-21 11:59] LABS: Glucose,Whole Blood 156 mg/dL (75-99)
[2020-03-21 13:23] VITALS: BMI 44.1
--- NOTE | 2020-03-21 13:34 | PN ---
PROGRESS NOTE The patient is seen for followup for acute kidney injury and hypernatremia. He is currently maintained on D5W. Serum sodium has improved. There are plans for possible transfer to rehab in a.m. The patient has been eating. He ate 50% of his breakfast today. Urine output is about 3 L for 24 hours. PHYSICAL EXAMINATION: On examination, patient is awake, comfortable, he is not in any acute distress. Blood pressure is 120/77, heart rate 87 per minute, he is afebrile. Examination of the heart S1, S2. Examination of the lungs, bilateral breath sounds are heard. Abdomen is soft, nontender. Examination of lower extremities shows no significant edema. DRIVER/SALES [employer] exam grossly intact. LABS: Show sodium 150, potassium 3.9, chloride 124, CO2 is 19, BUN 50, creatinine 2.28, hemoglobin 14.9 g/dL. ASSESSMENT: 1. Acute kidney injury, prerenal, currently significantly improved. Element of acute tubular necrosis as well. Continue with the Mosqueda catheter for now. It can be removed in the rehab once patient is stronger. 2. Hypernatremia associated with free water deficit, slowly improving. Currently maintained on D5W. 3. Diarrhea. Clostridium difficile toxin is negative. 4. Non-gap metabolic acidosis secondary to diarrhea as well as renal failure, now improved. PLAN: Continue D5W. Repeat labs in a.m. Continue to encourage increased oral intake, particularly free water. MMODL / IJN: [id number] /
[2020-03-21 16:36] LABS: Glucose,Whole Blood 141 mg/dL (75-99)
[2020-03-21 20:16] LABS: Glucose,Whole Blood 155 mg/dL (75-99)
[2020-03-21] MEDS: ERTAPENEM 0.5 GM in SODIUM CHLORIDE 0.9% 50 ML IVPB SCH (22:08)
[2020-03-22] MEDS: SODIUM CHLORIDE 0.9% 1,000 ML IV SCH (00:07)
[2020-03-22] MEDS: DEXTROSE 5% IN WATER 1,000 ML IV SCH (06:23)
[2020-03-22 06:24] LABS: Glucose,Whole Blood 96 mg/dL (75-99)
[2020-03-22] MEDS: INSULIN ASPART (NovoLOG) 100 UNIT/ML VIAL SQ SCH ×2 (06:25→12:31)
[2020-03-22 08:51] VITALS: TEMP 96.7
[2020-03-22] MEDS ORDERED: DIGOXIN 125 MCG TAB PO SCH (09:00)
[2020-03-22 09:01] LABS: HCT 47.5 % (39.0-53.0); HGB 14.8 gm/dL (13.0-17.5); Hypochromasia Slight; MCH 29.7 pg (25.0-35.0); MCHC 31.2 g/dL (31.0-37.0); MCV 95.2 fL (80.0-100.0); Mean Platelet Volume 9.9; Platelet Count 192 k/uL (150-450); RBC 4.99 m/uL (4.30-5.90); RDW 15.3 % (11.5-15.5); WBC 18.6 k/uL (3.8-10.6)
[2020-03-22] MEDS: APIXABAN 2.5 MG TABLET PO SCH (09:04)
[2020-03-22] MEDS: MEMANTINE 5 MG TAB PO SCH (09:04)
[2020-03-22] MEDS: METOPROLOL TARTRATE 50 MG TAB PO SCH (09:05)
[2020-03-22] MEDS: LACTOBACILLUS ACIDOPH & BULGAR 1 EACH PACKET PO SCH (09:06)
[2020-03-22] MEDS: LOPERAMIDE 2 MG CAP PO SCH ×2 (09:06→12:36)
[2020-03-22] MEDS: ASPIRIN 81 MG PO SCH (09:06)
[2020-03-22] MEDS: CHOLESTYRAMINE (WITH SUGAR) 4 GM PACKET PO SCH (09:06)
[2020-03-22] MEDS: VENLAFAXINE HCL ER 75 MG CAP PO SCH (09:07)
[2020-03-22] MEDS: NYSTATIN 100,000 UNIT/ML SUSP 500,000 UNIT/5 ML CUP PO SCH ×2 (09:07→12:36)
[2020-03-22] MEDS: RIVASTIGMINE 4.6MG/24HR PATCH TRANSDERM SCH (09:07)
[2020-03-22 09:23] LABS: Albumin 2.5 g/dL (3.5-5.0); Calcium 8.2 mg/dL (8.4-10.2); Potassium 3.7 mmol/L (3.5-5.1); Total Bilirubin 0.7 mg/dL (0.2-1.3); Total Protein 6.2 g/dL (6.3-8.2)
--- NOTE | 2020-03-22 10:49 | P.DS ---
Providers Date of admission: 03/14/20 10:12 Expected date of discharge: 03/22/20 Attending physician: Deven Navarro Consults: 03/14/20 11:31 Consult Physician Routine Consulting Provider: Rupa Hicks Consult Reason/Comments: ICU management Do you want consulting provider notified?: Yes Consult Physician Urgent Consulting Provider: Olivier Noriega Consult Reason/Comments: [place], no HD Do you want consulting provider notified?: Yes Primary care physician: [facility] Course: History of Present Illness This is an 84-year-old male previously a patient of Dr. Peralta at [facility] and recently transitioned to Dr. Navarro with past medical history of coronary artery disease status post CABG and stent 2 and aortic valve replacement, chronic persistent atrial fibrillation status post cardioversion,, hypertension, hyperlipidemia, diabetes mellitus type 2, Alzheimer dementia, neuro fibrosis, history of renal cancer status post left nephrectomy, melanoma. Patient had episode where he was found on the floor at the long term unresponsive with a low blood pressure of 60/40. Patient did not have any cough or shortness of breath. He has known history as above. Patient has been a no code and no transfer to the hospital but family decided to send him in the hospital for evaluation. EKG was atrial fibrillation at rate of 121. Blood work revealed WBC 18, hemoglobin 17.2, platelet count 350. Chloride 108, CO2 9, BUN 119, creatinine 7.8, blood sugar 147. Initial lactic acid 2.6. Mosqueda catheter was placed and patient had no urine output. Chest x-ray showsshows acute posttraumatic changes. Slight vascular prominence. Correlate for developing volume overload. Patient was given 2 L of IV fluids, Rocephin and admitted to the intensive care unit. Consults were added for Dr. Hicks and Dr. Noriega. Family does not plan for hemodialysis. 03/15: Patient remains in the intensive care unit but has not required vasopr essors. He states he does not have any appetite. In general he is feeling much better from yesterday and looks much improved. Last evening he started having urine output around 5 PM. Urine is dark. He is currently on Invanz and vancomycin. Urinalysis revealed leukoesterase large, RBCs greater than 182, to be PVCs greater than 182, bacteria moderate. Covid 19 not detected. Digoxin level 0.4. Repeat lab work reveals improved leukocytosis 16.4, hemoglobin stable at 15.4, platelet count 251. Some improvement of his renal function with BUN of 121 and creatinine 6.22. CO2 is 13. Lactic acid remains elevated at 3.2. Patient has been seen by nephrology. Patient has been maintained on bicarb drip Renal ultrasound revealed nonobstructing renal stone in the right kidney. Right renal cyst. 03/16: Patient remains in intensive care unit. He has had significant improvement of his lab work. Bicarb drip discontinued today. The patient went into atrial fibrillation converted on amiodarone drip and cardiology consult added. Digoxin has been resumed and continued on Lopressor 50 mg twice daily. Patient has not required vasopressors. Echocardiogram reveals EF of 50-55%, mild aortic stenosis, mild mitral regurgitation, mild tricuspid regurgitation, small generalized pericardial effusion.Patient has been afebrile, heart rate 104, blood pressure 118/79, pulse ox 98% on room air. WBC 13.3, hemoglobin 15.1. Sodium 141, potassium 2.9, chloride 105, CO2 23, BUN 101, creatinine 3.17. Blood sugars running between 126 and 251. Potassium have been replaced. Magnesium 1.6. Patient is currently on vancomycin and Invanz. Blood culture positive for alphahemolytic strep and urine culture gram-negative bacilli. Anticipate discharge back to [facility] on Friday. Patient is cleared for transfer to the selective care unit. 03/17: Patient is seen today on the cardiac stepdown unit. Stool specimen was sent last evening for C. difficile toxin which came back negative. Fecal yen gement system remains in place with output of brown liquid stool. Question will be added. Patient is eating very little and refused breakfast this morning. Patient is confused which is his baseline. Mosqueda catheter remains in place and urine output is clear marina. He remains in atrial fibrillation running in the 90s and low 100s. Blood pressure 125/86, pulse ox 98% on room air. Repeat blood work reveals potassium 3.1, chloride 110, BUN 79 creatinine 2.45. Blood sugars are running between 108 126. Patient remains on IV antibiotics of Invanz and vancomycin as directed by Dr. Hicks. IV fluids at 50 mL per hour per nephrology, potassium was replaced. Anticipate return to [facility] on Friday. [facility] liaison updated. Yesterday, patient had mild RVR and Lopressor was increased frequency to 3 times daily. 03/18: Patient is seen today on the cardiac stepdown unit. Patient continues to not eat very much. His mental status is at baseline with chronic confusion. He continues to have watery stool with fecal management system in place emptying 2 bags in the past 24 hours. No improvement with Questran and Imodium added. He has been afebrile, heart rate 104, blood pressure 122/87, pulse ox 96% on room air. Repeat blood work reveals sodium of 151, BUN 70 creatinine 2.27. Potassium 3.6, chloride 121, CO2 20. Blood sugar running between 112 and 148. Magnesium 2.6. IV fluids will be changed to D5 normal saline at 100 per hour until seen by nephrology. Blood culture alphahemolytic streptococcus. Urine culture is E. coli ESBL sensitive to ertapenem and vancomycin will be d iscontinued. Anticipate discharge to [facility] on Friday. 03/19: Patient's mental status is about the same from yesterday. His stools are not as clear but continued to be liquidy despite use of Questran and Imodium. Lactulose also added. Patient is continued on ertapenem. He has been afebrile, blood pressure 120/74 and pulse ox 96% on room air. He has had elevated heart rate of 160 came down to 130s prior to metoprolol dose. He is currently on Lopressor 50 mg 3 times daily. Repeat blood work reveals WBC 14.4, hemoglobin 17.1. Sodium normal at 139, potassium 4.4, chloride 110, CO2 22, BUN 19 and creatinine 0.76. Blood sugars running between 70 and 292. Osmolality 338, urine osmolality 542. 03/20: Patient continues to have liquid stool through fecal management system although volume has decreased. He is currently on Imodium scheduled 4 times a day, Questran twice daily, lactobacillus daily. Patient also is on IV antibiotics with ertapenem. Appetite seems to be improving and patient is eating 50-100% of meals and snacks. He has afebrile, heart rate 95, blood pressure 130/80, pulse ox 95% on room air. Heart rate is better controlled today with increase in metoprolol yesterday. Blood sugar was low this morning and adjustment made to insulin. If diarrhea improves by tomorrow, plan for return to [facility]. 03/21: Patient remains on the cardiac stepdown unit. He only had 500 ML's out of fecal management system yesterday and this will be removed today. We'll also plan to remove Mosqueda catheter and change control specialist to condom catheter. Patient's mental status is at his baseline. Repeat lab work reveals WBC 18.3. Sodium 150, potassium 3.9, chloride 124, CO2 19, BUN 15 creatinine 2.28. Blood sugars are running between 108 and 173. Nephrology has ordered for IV fluids changed to D5W and repeat sodium in 6 hours. He has been afebrile, heart rate 81, blood pressure 114/75, pulse ox 97% on room air. Anticipate probable discharge to return to [facility] tomorrow. Liaison updated. 03/22: Fecal management system was discontinued yesterday. Diarrhea is currently controlled. Mosqueda catheter remains in place which will plan to maintain and have removed at the long term. Patient has been afebrile, heart rate 83, blood pressure 132/86, pulse ox 95% on room air. Repeat COVID-19 testing has been ordered as required for long term return. Patient will be discharged to [facility] once all arrangements are completed. Assessment and Plan 1. Acute kidney injury with severe metabolic acidosis and hypotension. 2. Acute kidney injury secondary to ATN. 3. Chronic persistent atrial fibrillation presenting with RVR. 4. Leukocytosis and sepsis secondary to ESBL E. coli UTI, present on admission. 5. History of coronary artery disease status post CABG and stent placement as well as aortic valve replacement. 6. Diabetes mellitus type 2, insulin requiring. 7. Alzheimer's dementia. 8. Hypertension. 9. Hyperlipidemia. 10. Neuro fibrosis, stable. 11. History of renal cancer status post nephrectomy with chronic kidney disease stage III. 12. COVID-19 infection not present. Repeat Covid 19 testing negative. 13. Mild hyperphosphatemia secondary to acute kidney injury. 14. Diarrhea most likely secondary to antibiotics. 15. Hypernatremia due to profuse diarrhea, resolved. Discharge plan: Return to [facility] under the care of Dr. Navarro Impression and plan of care have been directed as dictated by the signing physician. Suzy Choi nurse practitioner acting as scribe for signing physician. Patient Condition at Discharge: Good Plan - Discharge Summary Discharge Rx Participant: No New Discharge Prescriptions: New Insulin Detemir (Levemir) [Levemir] 18 unit SQ HS syr Metoprolol Tartrate [Lopressor] 75 mg PO TID tab Nystatin 100,000 Unit/ml Susp [Mycostatin Oral Susp] 500,000 unit PO QID ml Cholestyramine (with Sugar) [Questran Packet] 4 gm PO BID@1000,1800 packet Continue Digoxin [Lanoxin] 125 mcg PO DAILY Aspirin EC [Ecotrin Low Dose] 81 mg PO DAILY Venlafaxine HCl [Effexor XR] 75 mg PO DAILY Magnesium Hydroxide [Milk of Magnesia] 2,400 mg PO DAILY PRN PRN Reason: Constipation Loperamide HCl [Imodium A-D] 1 - 2 mg PO TID PRN MDD 4 tabs PRN Reason: Diarrhea bisacodyL [Dulcolax] 10 mg RECTAL DAILY PRN PRN Reason: Constipation Acetaminophen [Tylenol 8 Hour] 650 mg PO Q4H PRN PRN Reason: general discomfort Glucerna Shake 120 ml PO TID-W/MEALS Memantine HCl [Namenda] 7.5 mg PO DAILY Rivastigmine 4.6MG/24Hr Patch [Exelon 4.6MG/24Hr Patch] 1 patch TRANSDERM Q24HR Apixaban [Eliquis] 2.5 mg PO BID Lactobacillus Acidophilus [Acidophilus] 1 tab PO DAILY Polyethylene Glycol 3350 [Miralax] 17 gm PO DAILY PRN PRN Reason: Constipation Discontinued metFORMIN HCL [Glucophage] 500 mg PO BID@0800,1700 Lisinopril [Zestril] 10 mg PO DAILY Metoprolol Tartrate [Lopressor] 50 mg PO BID tab Na Phos,M-B/Na Phos,Di-Ba [Fleet Adult] 133 ml RECTAL DAILY PRN PRN Reason: Constipation INSULIN ASPART (NovoLOG) [NovoLOG (formulary)] 5 unit SQ TID@0700,1100,1630 Insulin Glargine [Lantus] 26 unit SQ HS Discharge Medication List Aspirin EC [Ecotrin Low Dose] 81 mg PO DAILY 07/30/16 [History] Digoxin [Lanoxin] 125 mcg PO DAILY 07/30/16 [History] Venlafaxine HCl [Effexor XR] 75 mg PO DAILY 11/11/16 [History] Acetaminophen [Tylenol 8 Hour] 650 mg PO Q4H PRN 03/14/20 [History] Apixaban [Eliquis] 2.5 mg PO BID 03/14/20 [History] Glucerna Shake 120 ml PO TID-W/MEALS 03/14/20 [History] Lactobacillus Acidophilus [Acidophilus] 1 tab PO DAILY 03/14/20 [History] Loperamide HCl [Imodium A-D] 1 - 2 mg PO TID PRN MDD 4 tabs 03/14/20 [History] Magnesium Hydroxide [Milk of Magnesia] 2,400 mg PO DAILY PRN 03/14/20 [History] Memantine HCl [Namenda] 7.5 mg PO DAILY 03/14/20 [History] Polyethylene Glycol 3350 [Miralax] 17 gm PO DAILY PRN 03/14/20 [History] Rivastigmine 4.6MG/24Hr Patch [Exelon 4.6MG/24Hr Patch] 1 patch TRANSDERM Q24HR 03/14/20 [History] bisacodyL [Dulcolax] 10 mg RECTAL DAILY PRN 03/14/20 [History] Cholestyramine (with Sugar) [Questran Packet] 4 gm PO BID@1000,1800 packet 03/22/20 [Rx] Insulin Detemir (Levemir) [Levemir] 18 unit SQ HS syr 03/22/20 [Rx] Metoprolol Tartrate [Lopressor] 75 mg PO TID tab 03/22/20 [Rx] Nystatin 100,000 Unit/ml Susp [Mycostatin Oral Susp] 500,000 unit PO QID ml 03/22/20 [Rx] Follow up Appointment(s)/Referral(s): Deven Navarro MD [Primary Care Provider] - 1 Week (at [facility]) Activity/Diet/Wound Care/Special Instructions: Mosqueda catheter to be removed at [facility]. Discharge Disposition: TRANSFER TO SNF/ECF
--- NOTE | 2020-03-22 11:32 | PN ---
PROGRESS NOTE Patient is seen for followup for chronic kidney disease, acute kidney injury and hyponatremia. His serum sodium has improved to 148. Patient is maintained on D5W. He is having some oral intake, overall mentation seems to be improved as well. PHYSICAL EXAMINATION: On examination, blood pressure is 128/82, heart rate 82 per minute, patient is afebrile. Examination of the heart S1, S2. Examination of the lungs, bilateral breath sounds are heard. Abdomen is soft, nontender. Examination of the lower extremities shows no evidence of edema. IGNITER CAPPER exam grossly intact. LABS: Show sodium 148, potassium 3.7, chloride 121, CO2 is 21, BUN 42, creatinine 2.15, hemoglobin 14.8 g/dL. ASSESSMENT: 1. Acute kidney injury, currently improving. 2. Hypernatremia associated with free water deficit, now improved. 3. Diarrhea, somewhat improved. 4. Non-gap metabolic acidosis secondary to diarrhea and renal failure, currently improved. PLAN: Patient can be discharged from nephrology standpoint. He should be encouraged to increase oral free water intake post discharge. MMODL / IJN: [id number] /
[2020-03-22 12:22] LABS: Glucose,Whole Blood 116 mg/dL (75-99)
[2020-03-22 12:23] VITALS: BP 130/82; PULSE 80
== END 2020-03-22 16:09 | DRG 871 ==
LOC: SUPCPDRO 08:21 → EC 08:21 → 3SCARD 10:12 → 2SICU 11:49 → 3SCARD 03-17 00:32
PROVIDERS: ADMIT Internal Medicine Geriatric Medicine; ATTEND Internal Medicine Geriatric Medicine
PROC: 3E033XZ Introduction of Vasopressor into Peripheral Vein, Percutaneous Approach (ICD-10-PCS; principal; 2020-03-14)
DX: A41.51 Sepsis due to Escherichia coli [E. coli] (principal); N17.0 Acute kidney failure with tubular necrosis; I48.19 Other persistent atrial fibrillation; E87.2 Acidosis; Z16.12 Extended spectrum beta lactamase (ESBL) resistance; N39.0 Urinary tract infection, site not specified; E87.0 Hyperosmolality and hypernatremia; I31.3 Pericardial effusion (noninflammatory); K52.1 Toxic gastroenteritis and colitis; E83.39 Other disorders of phosphorus metabolism; E86.1 Hypovolemia; A40.9 Streptococcal sepsis, unspecified; G30.9 Alzheimer's disease, unspecified; F02.80 Dementia in other diseases classified elsewhere, unspecified severity, without behavioral disturbance, psychotic disturbance, mood disturbance, and anxiety; N18.3 Chronic kidney disease, stage 3 (moderate); E11.22 Type 2 diabetes mellitus with diabetic chronic kidney disease; Z79.4 Long term (current) use of insulin; R65.20 Severe sepsis without septic shock; Q85.00 Neurofibromatosis, unspecified; Z66 Do not resuscitate; Z20.828 Contact with and (suspected) exposure to other viral communicable diseases; E87.8 Other disorders of electrolyte and fluid balance, not elsewhere classified; I12.9 Hypertensive chronic kidney disease with stage 1 through stage 4 chronic kidney disease, or unspecified chronic kidney disease; N20.0 Calculus of kidney; I49.3 Ventricular premature depolarization; N28.1 Cyst of kidney, acquired; I08.3 Combined rheumatic disorders of mitral, aortic and tricuspid valves; T50.2X5A Adverse effect of carbonic-anhydrase inhibitors, benzothiadiazides and other diuretics, initial encounter; R35.8 Other polyuria; E87.6 Hypokalemia; E87.70 Fluid overload, unspecified; F32.9 Major depressive disorder, single episode, unspecified; I25.10 Atherosclerotic heart disease of native coronary artery without angina pectoris; E78.5 Hyperlipidemia, unspecified; H91.90 Unspecified hearing loss, unspecified ear; T36.95XA Adverse effect of unspecified systemic antibiotic, initial encounter; T38.3X5A Adverse effect of insulin and oral hypoglycemic [antidiabetic] drugs, initial encounter; Z79.01 Long term (current) use of anticoagulants; Z79.82 Long term (current) use of aspirin; Z79.899 Other long term (current) drug therapy; Z85.528 Personal history of other malignant neoplasm of kidney; Z90.5 Acquired absence of kidney; Z85.820 Personal history of malignant melanoma of skin; Z86.19 Personal history of other infectious and parasitic diseases; W19.XXXA Unspecified fall, initial encounter; Z95.2 Presence of prosthetic heart valve; Z95.1 Presence of aortocoronary bypass graft; Z95.5 Presence of coronary angioplasty implant and graft; Z90.89 Acquired absence of other organs; Z98.890 Other specified postprocedural states; Z87.81 Personal history of (healed) traumatic fracture; Z96.649 Presence of unspecified artificial hip joint; Z86.69 Personal history of other diseases of the nervous system and sense organs; Y92.129 Unspecified place in nursing home as the place of occurrence of the external cause; Z80.0 Family history of malignant neoplasm of digestive organs; Z82.3 Family history of stroke; Z83.2 Family history of diseases of the blood and blood-forming organs and certain disorders involving the immune mechanism; Z82.69 Family history of other diseases of the musculoskeletal system and connective tissue; Z81.8 Family history of other mental and behavioral disorders; Z82.0 Family history of epilepsy and other diseases of the nervous system; Z83.79 Family history of other diseases of the digestive system; Z83.518 Family history of other specified eye disorder
CPT/HCPCS: 36415; 71046; 76770; 80048; 80053; 80162; 80202; 81001; 82550; 82570; 83605; 83735; 83930; 83935; 84100; 84132; 84133; 84295; 84300; 85025; 85027; 87040; 87077; 87086; 87186; 87324; 87635; 93005; 93306; 96361; 96374; 99291